=== PATIENT | female | born 1940 | race Caucasian/White ===

== ENCOUNTER → 2018-01-14 15:23 | Outpatient (CLI) | payer MEDICARE, OTHER, SELFPAY ==
--- NOTE | 2018-01-14 12:05 | LES_PTH ---
PATIENT: LEONIDES GILLESPIE LOC: [facility] U#:[id number] AGE/SX: 84/F ROOM: RE01/14/[address]: Dr. Luis Eduardo Preciado MD : [id number] BED: DIS: SPEC #: [id number] RECD: 01/14/18 15:19 STATUS: TOYIN KAREEN #: [id number] ESTIVEN: 01/14/18 12:[address]: Luis Eduardo Preciado DEPT: SURGICAL PATHOLOGY RECD BY: Luz Maria Alfonso ENTERED: 01/15/18 07:01 SP TYPE: Lesion OTHR DR: Dr. Rodger Thornton, [facility] Tissues: Skin of face, NOS Procedures: Surgery Specimen Level IV HEADER OPERATION: Right excision facial lesion PRE-OP DIAGNOSIS: Basal cell carcinoma of skin of other parts of face TISSUE SUBMITTED: Basal cell ? suture on inferior margin MICROSCOPIC DIAGNOSIS Right facial lesion, excision: Extensive solar elastosis. Minimal actinic keratosis. Negative for malignancy. SJ:rg 01/16/18 COMMENT Please make reference to previous specimen ([id number]), left lower lid skin lesion, biopsy with diagnosis of pigmented seborrheic keratosis and epidermal inclusion cyst. Case has been reviewed in consultation with Dr. Madden who concurs with the above diagnosis. IDC:[email or web address] MICROSCOPIC DESCRIPTION Slides are reviewed. GROSS DESCRIPTION Received is one container labeled with the patient's name and not further designated. The specimen consists of a espinoza-white skin ellipse measuring 2.5 x 0.6 cm and up to 0.2 cm in thickness. The specimen is oriented as follows: suture on inferior margin. The specimen is inked as follows: superior margin ? black, inferior margin ? blue, superior margin designated as 12 o?clock, 3 o?clock tip is inked yellow, 9 o?clock tip is inked green, deep margin inked black. The entire specimen is submitted in two cassettes as follows: 1 ? 3 o?clock and 9 o?clock tip, 2 ? rest of the specimen. The tissue in block 2 will be serially sectioned at the time of embedding. / ESTUARDO:dusty 01/15/18 TC:5 CPT: 77411
== END ==
PROVIDERS: Family Provider Student in an Organized Health Care Education/Training Program; PCP Student in an Organized Health Care Education/Training Program; Visit Provider Otolaryngology Otolaryngology/Facial Plastic Surgery
DX: L57.8 Other skin changes due to chronic exposure to nonionizing radiation (principal); L57.0 Actinic keratosis
CPT/HCPCS: 88305

== ENCOUNTER 2018-05-28 05:48 | Inpatient (IN) | payer MEDICARE, OTHER, SELFPAY ==
[2015-06-23 21:24] VITALS: BMI 27.3
--- NOTE | 2018-05-18 16:34 | PCM.HP.BLA ---
History and Physical DATE OF SURGERY: 05/28/2018 SCHEDULED PROCEDURE: Left Total Knee Arthroplasty HISTORY OF PRESENT ILLNESS: This is a 77-year-old female who has been having ongoing bilateral knee pain for several years. Patient underwent previous Euflexxa injection in February 2018. Patient states she was doing well with regards to her right knee. However she has not seen any significant improvement with her left knee. Patient states her pain is intermittent, dull, aching, and sharp. She has pain going up and down stairs, sitting for extended periods of time, and walking. She has difficult time with activities of daily living including housework, shopping, and leisure activities such as gardening. 10/10 and on average is a 5/10 on the left. Patient does complain of intermittent swelling. She states the pain has become worse over the past several weeks. Pain in the left knee is now constant. Patient has tried rest, she, in general injection on the left with no relief in symptoms. Patient has tried ice and elevation with minimal relief. X-rays on the left knee show osla-hi-rdbu arthritis in the medial compartment. Patient has medical history pertinent for hypertension. Patient currently denies any chest pain, shortness of breath, fevers chills, recent infections. Patient does have previous left knee arthroscopy [place] [address] Jg Kulkarni. We obtaining surgical clearance from patient's primary care physician. After failing conservative measures and discussing all treatment options with Dr. Jose Heath, the patient would like to proceed with a left total knee arthroplasty. REVIEW OF SYSTEMS: ROS: Const: Reports anxiety, but denies anorexia, change in appetite, fever, hard of hearing, vision problems and weight change. CV: Denies chest pain, heart murmur, irregular heartbeat and peripheral vascular disease. Resp: Denies asthma, cough, pneumonia, sleep apnea, SOB, tuberculosis and wheezing. GI: Denies constipation, diarrhea, difficulty swallowing, heartburn, nausea, bloody stools and vomiting. : Urinary: denies incontinence. Musculo: Denies leg swelling, limp, trouble walking and weakness. Skin: Denies Raynaud's, history of shingles and tattoo. Neuro: Reports numbness/tingling but denies ambulatory dysfunction, dizziness and tremor. Psych: Reports anxiety and depression, but denies insomnia, mental illness and stress. Elliot/Lymph: Denies anemia, bleeding/bruising tendency and past transfusion. Reviewed and updated. PAST MEDICAL HISTORY: Advance Care Plan: Other Directive, LIVING WILL Effective Date: 08/11/2015 Other Directive, POA Effective Date: 08/11/2015 PMH: Medical Problems: High Blood Pressure Accidents: None Surgical Hx: Gallbladder - (1996) [facility] Tubal Ligation - (1966) [facility] LT Knee Arthroscopy - (11/16/2011) [facility] @ [facility] Appendectomy - (06/2015) Facial SX Anesthesia Complications: None Assistive Devices: Glasses - READING Reviewed, no changes. SOCIAL HISTORY: SH: Marital: .Occupation: Retired.Work Status: Retired.Hand Dominance: Right-handed. Personal Habits: Cigarette Use: Former.Alcohol: Weekly use.Drug Use: Denies Use.Enjoy Exercising: Exercises 1-3 x/month. Reviewed, no changes. VITALS: Ht: 61 Wt: 157lb 8oz Wt k.442 BMI: 29.8 BP: 159/82 Pulse: 56 Resp: 16 T: 96.0 T: 35.6C ALLERGIES: Erythromycin Norvasc Crestor Lisinopril Mobic MEDICATIONS: Aspirin 81 mg 1 po qd, Losartan Potassium 50 mg 1 PO qdaily, Lorazepam 0.5 mg 1 by mouth every day as needed, Escitalopram Oxalate 5 mg/5ml daily, Advil 200 mg 3po qday, Multi Vitamin Daily 1po qday, Vitamin D 2000 Unit 1 by mouth every day PRE-OP EXAM: General appearance:NORMAL Other: Eyes: Conjunctivae and lids: NORMAL Pupils: ERR Ears, Nose, Mouth, and Throat: NORMAL Other: Inspection of lips, teeth and gums: NORMAL Other: Neck: Examination of neck: no masses noted. Respiratory: Assessment of respiratory effort: NORMAL Other: Auscultation of lungs: clear to auscultation no wheezes, rhonchi or rales. Cardiovascular: Auscultation of heart: regular rate and rhythm, no murmurs, gallops or rubs. Exam of carotid arteries: NORMAL Other: Gastrointestinal: Exam of abdomen: soft, nontender, nondistended bowel sounds present. PHYSICAL EXAMINATION: Patient does walk with an antalgic gait. Left knee is cool to touch without erythema. Patient has tenderness to palpation of the medial and lateral joint line of the left knee. Range of motion left knee: Lacks 5 of full extension to 120 of flexion. Stable to varus and valgus stress test. Varus alignment bilaterally. Sensation intact to light touch. Neurovascularly intact. IMAGING STUDIES: X-rays of bilateral knees reveal varus alignment with medial joint space narrowing, subchondral sclerosis, and osteophyte formation consistent with severe medial compartment osteoarthritis bilaterally with evidence of lateral compartment chondrocalcinosis and pseudogout in the left knee. IMPRESSION: 1. Severe left knee osteoarthritis 2. Severe right knee osteoarthritis 3. Hypertension PLAN: Dr. Jose Heath did discuss and review with the patient all treatment options including surgical versus nonsurgical options. Patient does wish to proceed with the above-stated procedure. Potential risks, benefits, and complications of the procedure were discussed in detail including but not limited to , infection, nerve and blood vessel damage, persistent pain, numbness, tingling, paresthesias, blood clot, pulmonary embolism, and requirement for possible further surgery. The patient expressed full understanding and has no further questions for the doctor. Patient does agree to proceed with the above-stated procedure and has signed the surgery consent form. This dictation was created using voice recognition software. Phonetic and/or grammatical errors may exist.. ___ I have re-examined the patient. There are no clinical changes since date of exam. ___ See progress notes for changes. ___ Dictated on admission Date: Time: Signature:
[2018-05-19 14:21] VITALS: BP 126/63; PULSE 59; RESP 16; TEMP 36.6; O2SAT 95; BMI 29.7
[2018-05-19 15:04] LABS: Absolute Lymphocyte Count 1.48 X10^3/ul (0.83-4.51); Absolute Neutrophil Count 3.4 X10^3/uL (2.0-7.7); Basophil# 0.01 X10^3/uL; Basophil% 0.2 % (0-1); Eosinophil# 0.23 X10^3/uL; Eosinophils% 4.3 % (0-5); Hematocrit 43.7 % (37-47); Hemoglobin 14.5 g/dl (12.0-15.0); Lymphocyte # 1.48 X10^3/ul (4.0); Lymphocyte % 27.4 % (19-41); Mean Corp Hgb Conc 33.2 g/gl (32-36); Mean Corpuscular Volume 93.4 fL (81-99); Mean Platelet Vol. 12.3 fl (6.2-12.0); Monocyte# 0.28 X10^3/uL; Monocyte% 5.2 % (0-10); Neutrophil # 3.41 X10^3/uL (2.7-7.7); Neutrophil % 62.9 % (47-70); Platelet Count 164 K/mm3 (150-450); RBC Distribution Width CV 13.4 % (11.6-14.6); RBC Distribution Width SD 45.2 fl (35.1-43.9); Red Blood Count 4.68 M/mm3 (4.2-5.4); White Blood Count 5.4 K/mm3 (4.4-11.0)
[2018-05-19 15:05] LABS: POSITIVE COUNT NO; POSITIVE DIFFERENTIAL NO; POSITIVE MORPHOLOGY NO
[2018-05-19 15:23] LABS: Anion Gap 7 (5-15); BUN 18 mg/dL (7-18); BUN/Creat Ratio 22.5 RATIO (10-20); Calcium,Total 8.5 mg/dL (8.5-10.1); Chloride 105 mmol/L (98-107); EST Glomerular Filtration Rate 74 mL/min (>60); Est Glom Filt Rate - Afr Amer 90 mL/min (>60); Estimated Creatinine Clearance 45.14 ml/min; Glucose 138 mg/dL (74-106); Potassium 3.9 mmol/L (3.5-5.1); Sodium Level 137 mmol/L (136-145)
--- NOTE | 2018-05-23 12:13 | CASEMGMT ---
Attempted to contact patient regarding discharge needs after upcoming surgery. No answer, message left. Elena Pitt LPN Clinical Support
--- NOTE | 2018-05-23 13:19 | CASEMGMT ---
Spoke with patient regarding discharge needs after upcoming surgery. Patient plans to return home with assistance from . Patient has outpatient physical therapy set up at [facility], can assist with transportation. Patient has a walker, toilet riser, and shower seat. Bed room and bathroom are on the 1st level of the home. There are 2 steps into the home from the garage. Informed patient that RN-CM will likely follow up after surgery. Elena Pitt LPN Clinical Support
[2018-05-28] VITALS (17 sets, daily range): BP systolic 112–167; BP diastolic 56–80; PULSE 51–83; RESP 14–16; TEMP 35.7–37.2; O2SAT 91–98; BMI 29.7; BMI 31.6
[2018-05-28] MEDS: Acetaminophen 500 MG Tablet 1000 MG PO ×3 (06:30→22:16)
[2018-05-28] MEDS: Celecoxib 200 MG Capsule 400 MG PO (06:30)
[2018-05-28] MEDS: Cefazolin 2 GM in 0.9% Normal Saline 100 ML IV (07:54)
--- NOTE | 2018-05-28 09:08 | RAD_ITS ---
STUDY: X-RAY - LEFT KNEE REASON FOR EXAM: Female, 77 years old. Postop TECHNIQUE: 2 view(s) of the knee. COMPARISON: None. FINDINGS: Normal visualized distal femur. Normal visualized proximal tibia and fibula. Normal proximal tibiofibular articulation. There is a total knee arthroplasty in anatomic alignment. Normal medial femorotibial compartment. Normal lateral femorotibial compartment. Normal patellofemoral articulation. There is an effusion and gas in the joint. There is subcutaneous emphysema and skin daria anteriorly. There is a posterior splint obscuring detail. RAD/Knee 1 or 2 Views IMPRESSION: Status post total knee arthroplasty Electronically Signed: Oscar Guzman MD at 16:53 EST , Service support ,
[2018-05-28] MEDS: Lactated Ringers 1,000 ML 999 ML IV (09:10)
--- NOTE | 2018-05-28 09:10 | PCM.OPRPT ---
Report of Operation Date of Procedure: 05/28/18 Pre-Operative Diagnosis: Left knee primary osteoarthritis Post-Operative Diagnosis: Left knee primary osteoarthritis Surgery/Procedure Performed:: Left total knee replacement Description of Surgical Findings:: Stable knee with good patella tracking senior process analyst: Janna Sparrow Type of Anesthesia:: Spinal Anesthesiologist: David Patiño Special Medications: 2 g Ancef, 1 g TXA at incision, 1 g TXA closure, 10 mg Decadron, joint cocktail (5 mg Duramorph, 30 mL of 0.5% Ropivicaine, 1000 units of epinephrine, 30 mg of Toradol) Specimen's removed: Bony cuts Estimated Blood Loss (mL): 50 Fluids Replaced: 1200 ML crystalloid Description of Procedure: Implants used: 1. Abeba size 3 press-fit triathlon cruciate retaining distal femoral component 2. Rac[place] size 4 press-fit tibial baseplate 3. Abeba X3 9 mm CS polyethylene 4. [place] X3 29 mm asymmetric patella Brief history operative indications: 77-year-old f with history of left knee osteoarthritis with radiographic findings with loss of joint space, osteophyte formation and subchondral sclerosis. Failed conservative measures as mentioned in the H&P. Discussion of total knee arthroplasty as well as risk and benefits were discussed the patient including but not limited to blood loss, DVTs, PEs, neurovascular damage, general risk of anesthesia including loss of life, and stiffness or instability were discussed with patient. Patient demonstrated understanding and was able to sign informed consent. Procedure: On the date of procedure patient's left lower extremity was marked in the preoperative area. The patient was then taken back to the operating room where the patient was placed on the table in the supine position. All bony prominences were identified a well-padded. Anesthesia assumed control of the C-spine and airway and remained controlled throughout the remainder of the procedure. A tourniquet was placed on the left upper thigh and the leg was prepped in a sterile fashion. The surgeon then scrubbed at this time .Upon reentering the room left lower extremity was draped in a standard orthopedic fashion. A timeout was then called and everyone agreed upon the side, the site, the procedure to be performed, patient's identity and antibiotics given. Esmarch bandage was used to exsanguinate the extremity and the tourniquet was placed up to 250 mmHg with the knee in flexion. A midline skin incision was made and sharp dissection was taken down through skin subcutaneous tissue and fat. The standard medial parapatellar incision was made and the patella was subluxed laterally. The standard deep MCL release was done and the fat pad was resected. Next our attention was directed to the femur. Navigation pins were placed, navigation was registered. The distal femoral cutting block was pinned into place and 9 mm of distal femur resection was completed. The distal femoral cut was verified with navigation. The knee was then placed in deep flexion in the standard [employer] S.A sizing guide was used to place the femoral component in 3? external rotation based on the posterior condyles. A size 3 4-in-1 cutting block was selected and pinned into place. The anterior cut was then made and checked for notching. The subsequent anterior chamfer cuts, posterior condylar cuts and posterior chamfer cuts were made while ensuring the MCL and LCL were protected. Our attention was then turned to the tibia where the navigation pins were placed, navigation was registered. [email or web address] tibial cutting guide was used to make the appropriate tibial cut 90 degrees from the mechanical axis. Navigation was then used to verify the cut. A size 4 tibial base plate was selected. the knee was flexed to 90 degrees and the soft tissues and posterior osteophytes were removed from the joint. 40 cc of the periarticular injection was injected into the posterior medial corner of the joint. The appropriate trials were then placed on the femur and tibia. A trial polyethylene was trialed to ensure proper balancing and stability of the knee. Patella tracking, was then verified and corrected appropriately as needed. The appropriate tibial internal rotation was then marked with a bovie. Our attention was then directed to the patella. The patella was everted and a flat resection was made. The lug holes were drilled and the patella trial was placed. Patellar tracking was checked and deemed appropriate. Once we were happy lug holes were drilled for the femur and trial components were removed. Cement was mixed at this time and the tourniquet was let down the tibia was subluxed and pinned into place and the keel was punched and the canal was reamed. Final components were verified and opened, and cement was mixed in a vacuum. Racine Simplex cement was used. The wound was copiously irrigated with normal saline. When the cement was ready the press-fit components were impacted into place starting with the tibia, femur and finally the patella cemented into place. The trial poly component was placed and the knee was placed in full extension. All excess cement was removed in the process. Once the cement had cured the tracking, alignment and balance were verified and a size 9 mm polyethylene component was placed. Once the final components were placed the wound was copiously irrigated with normal saline solution and the periarticular injection was given. The wound was closed in a layer nur fashion using #1 vicryl interrupted sutures for the arthrotomy, 2-0 interrupted Vicryl suture for the subcuticular layer and daria for final skin closure. A sterile compressive dressing was then placed. The patient was then awakened from anesthesia, transferred to the rsalineno and transferred to the PACU for recovery. Post op plan DVT ppx: ASA 81mg, thigh high compression stockings Follow up: in office in 2 weeks for wound check PT: to start POD #0 at hospital, outpatient PT should be arranged. Grafts/Implants Used: Abeba cruciate retaining press-fit triathlon - Complications None - Admit VTE Documentation VTE Present on Admission: No VTE Mechan Device Prophylaxis: SCD's, Thigh High LAURA Hose VTE Pharm Prophylaxis ordered?: Yes
[2018-05-28] MEDS: Scopolamine 1mg/72hr Patch 1 PATCH TD (10:12)
--- NOTE | 2018-05-28 13:17 | PCM.PN.HOSP ---
Subjective: Patient is a 77-year-old lady who underwent Left knee arthroplasty by Dr. Heath on 05/28/2018. Hospitalist service was consulted to assist with management of patient medical comorbidities Objective: GENERAL: cooperative HEENT: Atraumatic; moist oral mucosa EYES; Anicteric, Normal Conjunctiva NECK; supple, normal thyroid, no distended JVD. RESPIRATORY: Diminished to auscultation bilaterally, CARDIOVASCULAR: Regular S1 S2, no audible murmurs GI: soft, non-tender, normoactive bowel sounds, : No Renal angle tenderness; EXTREMITIES: No edema, no clubbing, no cyanosis. MUSCULOSKELETAL:Left knee in surgical dressing NEURO: Awake; no lateralizing signs. SKIN: No Rash PSYCH; Normal affect Vitals/I&O's: Vital Signs Temp Pulse Resp BP Pulse Ox 97.9 F 61 16 143/72 H 94 05/28/18 12:57 05/28/18 12:57 05/28/18 12:57 05/28/18 12:57 05/28/18 12:57 Oxygen Flow Rate (L/min) 1 Oxygen Delivery Method Nasal Cannula Weight: 76.1 kg Body Mass Index (BMI) 31.6 Intake and Output for Last 24 Hours 05/26/18 05/27/18 05/28/18 23:59 23:59 23:59 Intake Total 2300 / 2300 Balance 2300 / 2300 Current Medications Acetaminophen (Tylenol) 1,000 mg PO Q8 [facility] Aspirin (Aspirin, Baby) 81 mg PO BIDCM [place] Celecoxib (Celebrex) 200 mg PO BID [facility] Cholecalciferol (Vitamin D) 1,000 unit PO DAILY [facility] Escitalopram Oxalate (Lexapro) 30 mg PO BID [place] Famotidine (Pepcid) 20 mg PO DAILY [facility] Cefazolin Sodium () 1 gm in 50 mls @ 150 mls/hr IV Q8H [place] Stop: 05/29/18 00:19 Lactated Ringer's () 1,000 mls @ 125 mls/hr IV .Q8H [facility] Ketorolac Tromethamine (Toradol) 15 mg IV Q6H PRN PRN PRN Reason: MILD-MOD PAIN (1-5/10) Lactobacillus Acidophilus (Acidophilus) 1 tablet PO DAILY [facility] Losartan Potassium (Cozaar) 50 mg PO BID [facility] Metoprolol Tartrate (Lopressor (Beta Monica)) 75 mg PO BID [facility] Morphine Sulfate () 2 - 4 mg IV Q2H PRN PRN PRN Reason: SEVERE PAIN (6-04/16) Multivitamins/Minerals (Multivitamin With Minerals) 1 tablet PO DAILY@0800 [facility] Nutritional Formula (Lactose Free) (Ensure Clear) 120 ml PO TIDCM [facility] Ondansetron HCl (Zofran) 4 mg IV Q8H PRN PRN PRN Reason: NAUSEA Oxycodone HCl (Oxyir) 5 - 10 mg PO Q4H PRN PRN PRN Reason: MOD-SEVERE PAIN (-04/16) Promethazine HCl (Phenergan) 12.5 mg IM Q6H PRN PRN; Protocol PRN Reason: NAUSEA/VOMITING Senna/Docusate Sodium (Senokot-S, Iesha-Colace) 2 tablet PO BID [facility] Sodium Chloride () 5 - 30 ml IV UD PRN PRN Reason: SALINE FLUSH Verapamil HCl (Calan Sr) 120 mg PO QHS [facility] Medical Necessity - Tobacco Use Smoking Status: Former smoker Tobacco Use: Non-smoker Assessment/Plan Patient is a 77-year-old lady who underwent left total knee arthroplasty by Dr. Heath on 05/28/2018. Hospitalist service was consulted to assist with management of patient medical comorbidities 1. Status post Left total nee arthroplasty on 05/28/[address] Heath. Patient postoperative orders regarding PT OT, as well as pain management addressed by primary service 2. Hypertension-blood pressure controlled, home medications continued with dose adjustment as needed 3. Generalized osteoarthritis 4. Obesity with BMI of 31.7 5. Depression with anxiety 6. DVT prophylaxis ordered by orthopedic service Active Medications Acetaminophen (Tylenol) 1,000 mg PO Q8 [facility]irin [facility]in, Baby) [facility] Celecoxib (Celebrex) 200 mg PO BID [facility] Cholecalciferol (Vitamin D) 1,000 unit PO DAILY [facility] Escitalopram Oxalate (Lexapro) 30 mg PO BID [facility] Famotidine (Pepcid) 20 mg PO DAILY [facility] Cefazolin Sodium () 1 gm in 50 mls @ 150 mls/hr IV Q8H [facility] Stop: 05/29/18 00:19 Lactated Ringer's () 1,000 mls @ 125 mls/hr IV .Q8H [facility] Ketorolac Tromethamine (Toradol) 15 mg IV Q6H PRN PRN PRN Reason: MILD-MOD PAIN (1-510) Lactobacillus Acidophilus (Acidophilus) 1 tablet PO DAILY [facility] Losartan Potassium (Cozaar) 50 mg PO BID [facility] Metoprolol Tartrate (Lopressor (Beta Monica)) 75 mg PO BID [facility] Morphine Sulfate () 2 - 4 mg IV Q2H PRN PRN PRN Reason: SEVERE PAIN (6-10/10) Multivitamins/Minerals (Multivitamin With Minerals) 1 tablet PO DAILY@0800 [facility] Nutritional Formula (Lactose Free) (Ensure Clear) 120 ml PO TIDCM [facility] Ondansetron HCl (Zofran) 4 mg IV Q8H PRN PRN PRN Reason: NAUSEA Oxycodone HCl (Oxyir) 5 - 10 mg PO Q4H PRN PRN PRN Reason: MOD-SEVERE PAIN (4-1010) Promethazine HCl (Phenergan) 12.5 mg IM Q6H PRN PRN; Protocol PRN Reason: NAUSEA/VOMITING Senna/Docusate Sodium (Senokot-S, Iesha-Colace) 2 tablet PO BID [facility] Sodium Chloride () 5 - 30 ml IV UD PRN PRN Reason: SALINE FLUSH Verapamil HCl (Calan Sr) 120 mg PO QHS [facility] Code Visit Inpatient E&M: [address] [facility]
[2018-05-28] MEDS: Cefazolin 1 GM/50 ML BAG IV (15:26)
[2018-05-28] MEDS: Lactated Ringers 1,000 ML 125 ML IV ×2 (16:51→22:18)
[2018-05-28] MEDS: Aspirin 81 MG TAB.CHEW PO (16:52)
[2018-05-28] MEDS: Losartan Potassium 50 MG Tablet PO (20:07)
[2018-05-28] MEDS: Metoprolol Tartrate 50 MG Tablet 75 MG PO (20:08)
[2018-05-28] MEDS: Senna/Docusate Sodium 1 Tablet 2 TABLET PO (20:08)
[2018-05-28] MEDS: Verapamil SR 240 MG Tablet 120 MG PO (20:09)
[2018-05-28] MEDS: Celecoxib 200 MG Capsule PO (20:10)
[2018-05-29] MEDS: Cefazolin 1 GM/50 ML BAG IV (00:20)
[2018-05-29] MEDS: LORazepam 0.5 MG Tablet PO (01:22)
[2018-05-29 01:25] VITALS: BP 152/53; PULSE 62; RESP 16; TEMP 36.7; O2SAT 97
[2018-05-29] MEDS: 0.9% NaCl Peripheral Flush Adult/Peds IV (04:25)
[2018-05-29] MEDS: Acetaminophen 500 MG Tablet 1000 MG PO (06:31)
[2018-05-29 06:33] VITALS: BP 185/84; PULSE 64; RESP 18; TEMP 36.6; O2SAT 97
[2018-05-29 06:37] LABS: Hematocrit 33.8 % (37-47); Hemoglobin 11.2 g/dl (12.0-15.0); Mean Corp Hgb Conc 33.1 g/gl (32-36); Mean Corpuscular Hgb 30.9 pg (27.0-32.0); Mean Corpuscular Volume 93.1 fL (81-99); Mean Platelet Vol. 11.2 fl (6.2-12.0); Platelet Count 145 K/mm3 (150-450); RBC Distribution Width CV 13.1 % (11.6-14.6); Red Blood Count 3.63 M/mm3 (4.2-5.4); Scan Indicated on CBC? Y/N NO; White Blood Count 12.4 K/mm3 (4.4-11.0)
[2018-05-29 06:38] VITALS: PULSE 64
[2018-05-29] MEDS: Metoprolol Tartrate 50 MG Tablet 75 MG PO (06:38)
[2018-05-29] MEDS: Losartan Potassium 50 MG Tablet PO (06:39)
[2018-05-29 06:48] LABS: Anion Gap 9 (5-15); BUN 16 mg/dL (7-18); BUN/Creat Ratio 19.4 RATIO (10-20); Calcium,Total 8.8 mg/dL (8.5-10.1); Chloride 106 mmol/L (98-107); Creatinine, Serum 0.82 mg/dL (0.55-1.02); EST Glomerular Filtration Rate 72 mL/min (>60); Est Glom Filt Rate - Afr Amer 87 mL/min (>60); Estimated Creatinine Clearance 44.04 ml/min; Glucose 119 mg/dL (74-106); Potassium 4.5 mmol/L (3.5-5.1); Sodium Level 140 mmol/L (136-145)
--- NOTE | 2018-05-29 07:45 | PN.ORTHO_ITS ---
Subjective: Patient is doing well today. She has no significant complaints. She has well- controlled knee pain. Patient does note that there was drainage last night nurse also states she had to change the dressing multiple times. Eventually they started using a compressive dressing and she has had less drainage since that time. She would like to go home today but her concern is that if she continues to have drainage of the wound she may not be able to manage it at home. She has had no chest pain or shortness of breath. She is done well with therapy. Objective: Left knee radiographs show well-placed postoperative total knee replacement - Physical Exam General: Alert, Oriented x3, Cooperative Extremities: - - Left lower extremity: Incision clean dry and intact this morning when dressing was removed. Proximally can see where there was some saturation of the dressing no active drainage this morning there is some surrounding ecchymosis. Motor is intact dorsiflexion, EHL and plantar flexion. Sensation is intact to light touch saphenous, jen,l superficial peroneal, deep peroneal and tibial distributions. Calves are soft and supple. Vital Signs Temp Pulse Resp BP Pulse Ox 97.8 F 64 18 185/84 H 97 05/29/18 06:33 05/29/18 06:38 05/29/18 06:33 05/29/18 06:33 05/29/18 06:33 Oxygen Flow Rate (L/min) 1 Oxygen Delivery Method Room Air Weight: 167 lb 12.348 oz Body Mass Index (BMI) 31.6 Intake and Output for Last 24 Hours 05/27/18 05/28/18 05/29/18 23:59 23:59 23:59 Intake Total 2300 / 2300 3743 / 3743 Balance 2300 / 2300 3743 / 3743 Laboratory Tests Past 24 Hrs 05/29/18 05/29/18 06:09 06:09 WBC 12.4 H RBC 3.63 L Hgb 11.2 L Hct 33.8 L MCV 93.1 MCH 30.9 MCHC 33.1 RDW 13.1 RDW Differential 44.0 H Plt Count 145 L MPV 11.2 Sodium 140 Potassium 4.5 Chloride 106 Carbon Dioxide 25.0 Anion Gap 9 BUN 16 Creatinine 0.82 Estim Creat Clear Calc 44.04 Est GFR (MDRD) Af Amer 87 Est GFR (MDRD) Non-Af 72 BUN/Creatinine Ratio 19.4 Glucose 119 H Calcium 8.8 Medical Necessity - Tobacco Use Smoking Status: Former smoker Tobacco Use: Non-smoker Assessment/Plan Postop day 1 left total knee replacement 1. DVT prophylaxis: Aspirin twice daily 81 mg 2. Pain control: Patient's pain is controlled on current regimen will discharge on current regimen 3. Physical therapy: Weightbearing as tolerated activity as tolerated, range of motion as tolerated. 4. Encourage incentive spirometry 5. Dressing: We will use a compressive dressing throughout the day today. Plan to change to occlusive dressing prior to discharge. Currently incision is clean and dry. 6. Disposition: Plan is to discharge patient home today. However there are concerns of being able to take care of her dressing at home. She is going to go through physical therapy today and if the incision remains dry and healthy she would like to go home this evening. If she continues to have drainage she will remain another day as we continue compressive dressings. Patient was educated on compressive dressings and wound care at home in the event that everything goes well the day but she has continued drainage at that time. [facility] Office:
[2018-05-29 07:46] VITALS: BP 159/69; PULSE 60; RESP 18; TEMP 36.6; O2SAT 95
--- NOTE | 2018-05-29 07:48 | PCM.PN.HOSP ---
Subjective: Postoperative day 1. Patient complains of not being able to sleep. She did develop some bleeding from her incision site Objective: GENERAL: cooperative HEENT: Atraumatic; moist oral mucosa EYES; Anicteric, Normal Conjunctiva NECK; supple, normal thyroid, no distended JVD. RESPIRATORY: Diminished to auscultation bilaterally, CARDIOVASCULAR: Regular S1 S2, no audible murmurs GI: soft, non-tender, normoactive bowel sounds, : No Renal angle tenderness; EXTREMITIES: No edema, no clubbing, no cyanosis. MUSCULOSKELETAL:Left knee in surgical dressing NEURO: Awake; no lateralizing signs. SKIN: No Rash PSYCH; Normal affect Vitals/I&O's: Vital Signs Temp Pulse Resp BP Pulse Ox 97.8 F 60 18 159/69 H 95 05/29/18 07:46 05/29/18 07:46 05/29/18 07:46 05/29/18 07:46 05/29/18 07:46 Oxygen Flow Rate (L/min) 1 Oxygen Delivery Method Room Air Weight: 76.1 kg Body Mass Index (BMI) 31.6 Intake and Output for Last 24 Hours 05/27/18 05/28/18 05/29/18 23:59 23:59 23:59 Intake Total 2300 / 2300 3743 / 3743 Balance 2300 / 2300 3743 / 3743 Laboratory Results 05/29/18 06:09: WBC 12.4 H, RBC 3.63 L, Hgb 11.2 L, Hct 33.8 L, MCV 93.1, MCH 30.9, MCHC 33.1, RDW 13.1, RDW Differential 44.0 H, Plt Count 145 L, MPV 11.2 05/29/18 06:09: Sodium 140, Potassium 4.5, Chloride 106, Carbon Dioxide 25.0, Anion Gap 9, BUN 16, Creatinine 0.82, Estim Creat Clear Calc 44.04, Est GFR (MDRD) Af Amer 87, Est GFR (MDRD) Non-Af 72, BUN/Creatinine Ratio 19.4, Glucose 119 H, Calcium 8.8 Current Medications Acetaminophen (Tylenol) 1,000 mg PO Q8 [facility] Last Admin: 05/29/18 06:31 Dose: 1,000 mg Aspirin (Aspirin, Baby) 81 mg PO BIDCM [facility] Last Admin: 05/28/18 16:52 Dose: 81 mg Celecoxib (Celebrex) 200 mg PO BID [facility] Last Admin: 05/28/18 20:10 Dose: 200 mg Cholecalciferol (Vitamin D) 1,000 unit PO DAILY [facility] Escitalopram Oxalate (Lexapro) 20 mg PO DAILY [facility] Escitalopram Oxalate (Lexapro) 10 mg PO DAILY [facility] Famotidine (Pepcid) 20 mg PO DAILY [facility] Ketorolac Tromethamine (Toradol) 15 mg IV Q6H PRN PRN PRN Reason: MILD-MOD PAIN (1-5/10) Lactobacillus Acidophilus (Acidophilus) 1 tablet PO DAILY [facility] Lorazepam (Ativan) 0.5 mg PO QHS PRN PRN PRN Reason: INSOMNIA Last Admin: 05/29/18 01:22 Dose: 0.5 mg Losartan Potassium (Cozaar) 50 mg PO BID [facility] Last Admin: 05/29/18 06:39 Dose: 50 mg Metoprolol Tartrate (Lopressor (Beta Monica)) 75 mg PO BID [facility] Last Admin: 05/29/18 06:38 Dose: 75 mg Morphine Sulfate () 2 - 4 mg IV Q2H PRN PRN PRN Reason: SEVERE PAIN (6-10/10) Multivitamins/Minerals (Multivitamin With Minerals) 1 tablet PO DAILY@0800 [facility] Nutritional Formula (Lactose Free) (Ensure Enlive) 120 ml PO 4X/DAY [facility] Last Admin: 05/28/18 20:15 Dose: Not Given Ondansetron HCl (Zofran) 4 mg IV Q8H PRN PRN PRN Reason: NAUSEA Oxycodone HCl (Oxyir) 5 - 10 mg PO Q4H PRN PRN PRN Reason: MOD-SEVERE PAIN (4-10/10) Promethazine HCl (Phenergan) 12.5 mg IM Q6H PRN PRN; Protocol PRN Reason: NAUSEA/VOMITING Senna/Docusate Sodium (Senokot-S, Iesha-Colace) 2 tablet PO BID [facility] Last Admin: 05/28/18 20:08 Dose: 2 tablet Sodium Chloride () 5 - 30 ml IV UD PRN PRN Reason: SALINE FLUSH Last Admin: 05/29/18 04:25 Dose: 10 ml Verapamil HCl (Calan Sr) 120 mg PO QHS [facility] Last Admin: 05/28/18 20:09 Dose: 120 mg Medical Necessity - Tobacco Use Smoking Status: Former smoker Tobacco Use: Non-smoker Assessment/Plan Patient is a 77-year-old lady who underwent left total knee arthroplasty by Dr. Heath on 05/28/2018. Hospitalist service was consulted to assist with management of patient medical comorbidities 1. Status post Left total nee arthroplasty on 05/28/[address] Heath. Patient postoperative orders regarding PT OT, as well as pain management addressed by primary service 2. Hypertension-blood pressure controlled, home medications continued with dose adjustment as needed 3. Generalized osteoarthritis 4. Obesity with BMI of 31.7 5. Depression with anxiety 6. DVT prophylaxis ordered by orthopedic service Active Medications Acetaminophen (Tylenol) 1,000 mg PO Q8 [facility] Aspirin (Aspirin, Baby) 81 mg PO BID [facility] Celecoxib (Celebrex) 200 mg PO BID [facility] Cholecalciferol (Vitamin D) 1,000 unit PO DAILY [facility] Escitalopram Oxalate (Lexapro) 30 mg PO BID [facility] Famotidine (Pepcid) 20 mg PO DAILY [facility] Cefazolin Sodium () 1 gm in 50 mls @ 150 mls/hr IV Q8H [facility] Stop: 05/29/18 00:19 Lactated Ringer's () 1,000 mls @ 125 mls/hr IV .Q8H [facility] Ketorolac Tromethamine (Toradol) 15 mg IV Q6H PRN PRN PRN Reason: MILD-MOD PAIN (1-5/10) Lactobacillus Acidophilus (Acidophilus) 1 tablet PO DAILY [facility] Losartan Potassium (Cozaar) 50 mg PO BID [facility] Metoprolol Tartrate (Lopressor (Beta Monica)) 75 mg PO BID [facility] Morphine Sulfate () 2 - 4 mg IV Q2H PRN PRN PRN Reason: SEVERE PAIN (6-10/10) Multivitamins/Minerals (Multivitamin With Minerals) 1 tablet PO DAILY@0800 [facility] Nutritional Formula (Lactose Free) (Ensure Clear) 120 ml PO TIDCM [facility] Ondansetron HCl (Zofran) 4 mg IV Q8H PRN PRN PRN Reason: NAUSEA Oxycodone HCl (Oxyir) 5 - 10 mg PO Q4H PRN PRN PRN Reason: MOD-SEVERE PAIN (4-10/10) Promethazine HCl (Phenergan) 12.5 mg IM Q6H PRN PRN; Protocol PRN Reason: NAUSEA/VOMITING Senna/Docusate Sodium (Senokot-S, Iesha-Colace) 2 tablet PO BID [facility] Sodium Chloride () 5 - 30 ml IV UD PRN PRN Reason: SALINE FLUSH Verapamil HCl (Calan Sr) 120 mg PO QHS [facility] Code Visit Inpatient E&M: 69836 Subs Hosp L2
--- NOTE | 2018-05-29 07:50 | DCINST_ITS ---
Discharge Diet: No Restrictions Discharge Activity: May Not Drive May shower in (days): 2 Ice area for (Minutes): 20 - every hour while awake. Weight Bearing Status: Weight bearing as tolerated Elevate: Operative Extremity Additional Activity Instructions:: Wear elastic stockings for 2 weeks after your surgery. Call your doctor if your incision/area has: Continuous Slow Oozing, Sudden Increased Bleeding, Increased Pain/ Swelling, Increased Redness, Foul Smelling Discharge Call your doctor if you observe: Fever of 101 or Higher, Coldness, Increased Pain, Numbness or Tingling, Change in Color, Calf discomfort, Uncontrolled pain Remove Dressing in (days):: 06-03-2018 Additional Dressing/Incision Instructions:: If incision is clean dry and intact may leave the wound open to air and continue showering. If there is continued drainage continue daily dry dressing changes and keep incision clean dry and intact until there is no drainage. Allergies/Adverse Reactions: Allergies atorvastatin calcium [From Lipitor] Allergy (Verified 05/19/18 14:08) Pain in joints erythromycin base [Erythromycin Base] Allergy (Verified 05/19/18 14:01) Upset Stomach rosuvastatin calcium [From Crestor] Allergy (Verified 05/19/18 14:01) Pain in joints amlodipine [From Norvasc] Adverse Reaction (Verified 05/19/18 14:01) Unknown lisinopril Adverse Reaction (Verified 05/19/18 14:01) Other COUGH meloxicam [From Mobic] Adverse Reaction (Verified 05/19/18 14:01) cough Medications to take at Discharge Cholecalciferol (Vitamin D3) [D3-2000] 1,000 unit PO DAILY 03/11/14 Losartan Potassium [Cozaar] 50 mg PO BID 03/11/14 Multivit-Min/FA/Lycopene/Lut [Centrum Silver Tablet] 1 each PO DAILY 03/11/14 Escitalopram Oxalate [Lexapro] 30 mg PO DAILY 05/19/18 L.acidoph,Paracasei, B.lactis [Probiotic] 1 each PO DAILY 05/19/18 Metoprolol Tartrate [Lopressor (beta torie)] 75 mg PO BID 05/19/18 [place]-3 Fatty Acids/Fish Oil [[place] 3 1,000 mg Softgel] 1 each PO QHS 05/19/18 Verapamil HCl [Verapamil ER] 120 mg PO QHS 05/28/18 Acetaminophen [Tylenol] 1,000 mg PO Q8 #90 tab 05/29/18 Aspirin [Aspirin, Baby] 81 mg PO BIDCM #60 tab.chew 05/29/18 Celecoxib [Celebrex] 200 mg PO BID #30 cap 05/29/18 Ensure Enlive 120 ml PO 4X/DAY liquid 05/29/18 Famotidine [Pepcid] 20 mg PO DAILY #30 tab 05/29/18 Oxycodone [Oxyir] 5 - 10 mg PO Q4H PRN PRN 7 Days #60 tab 05/29/18 Senna/Docusate Sodium [Senokot-S] 2 tab PO BID #30 tab 05/29/18 The following prescriptions were given: Oxycodone [Oxyir] 5 - 10 mg PO Q4H PRN PRN 7 Days #60 tab PRN Reason: Mod-Severe Pain (4-10) Acetaminophen [Tylenol] 1,000 mg PO Q8 #90 tab Famotidine [Pepcid] 20 mg PO DAILY #30 tab Aspirin [Aspirin, Baby] 81 mg PO BIDCM #60 tab.chew Celecoxib [Celebrex] 200 mg PO BID #30 cap Senna/Docusate Sodium [Senokot-S] 2 tab PO BID #30 tab Primary Care Physician: Rodger Thornton DO [Primary Care Provider] - Test Results: Test results from this visit will be discussed in further detail at your follow- up appointment, if applicable. Please Follow Up With: Wesley Jensen PA-C - 06-11-2018
--- NOTE | 2018-05-29 07:51 | PN_ITS ---
Subjective: Postoperative day 1. Patient complains of not being able to sleep. She did develop some bleeding from her incision site Objective: GENERAL: cooperative HEENT: Atraumatic; moist oral mucosa EYES; Anicteric, Normal Conjunctiva NECK; supple, normal thyroid, no distended JVD. RESPIRATORY: Diminished to auscultation bilaterally, CARDIOVASCULAR: Regular S1 S2, no audible murmurs GI: soft, non-tender, normoactive bowel sounds, : No Renal angle tenderness; EXTREMITIES: No edema, no clubbing, no cyanosis. MUSCULOSKELETAL:Left knee in surgical dressing NEURO: Awake; no lateralizing signs. SKIN: No Rash PSYCH; Normal affect Vitals/I&O's: Vital Signs Temp Pulse Resp BP Pulse Ox 97.8 F 60 18 159/69 H 95 05/29/18 07:46 05/29/18 07:46 05/29/18 07:46 05/29/18 07:46 05/29/18 07:46 Oxygen Flow Rate (L/min) 1 Oxygen Delivery Method Room Air Weight: 76.1 kg Body Mass Index (BMI) 31.6 Intake and Output for Last 24 Hours 05/27/18 05/28/18 05/29/18 23:59 23:59 23:59 Intake Total 2300 / 2300 3743 / 3743 Balance 2300 / 2300 3743 / 3743 Laboratory Results 05/29/18 06:09: WBC 12.4 H, RBC 3.63 L, Hgb 11.2 L, Hct 33.8 L, MCV 93.1, MCH 3 0.9, MCHC 33.1, RDW 13.1, RDW Differential 44.0 H, Plt Count 145 L, MPV 11.2 05/29/18 06:09: Sodium 140, Potassium 4.5, Chloride 106, Carbon Dioxide 25.0, Anion Gap 9, BUN 16, Creatinine 0.82, Estim Creat Clear Calc 44.04, Est GFR (MDRD) Af Amer 87, Est GFR (MDRD) Non-Af 72, BUN/Creatinine Ratio 19.4, Glucose 119 H, Calcium 8.8 Current Medications Acetaminophen (Tylenol) 1,000 mg PO Q8 [facility] Last Admin: 05/29/18 06:31 Dose: 1,000 mg Aspirin (Aspirin, Baby) 81 mg PO BIDCM [facility] Last Admin: 05/28/18 16:52 Dose: 81 mg Celecoxib (Celebrex) 200 mg PO BID [facility] Last Admin: 05/28/18 20:10 Dose: 200 mg Cholecalciferol (Vitamin D) 1,000 unit PO DAILY [facility] Escitalopram Oxalate (Lexapro) 20 mg PO DAILY [facility] Escitalopram Oxalate (Lexapro) 10 mg PO DAILY [facility] Famotidine (Pepcid) 20 mg PO DAILY [facility] Ketorolac Tromethamine (Toradol) 15 mg IV Q6H PRN PRN PRN Reason: MILD-MOD PAIN (1-5/10) Lactobacillus Acidophilus (Acidophilus) 1 tablet PO DAILY [facility] Lorazepam (Ativan) 0.5 mg PO QHS PRN PRN PRN Reason: INSOMNIA Last Admin: 05/29/18 01:22 Dose: 0.5 mg Losartan Potassium (Cozaar) 50 mg PO BID [facility] Last Admin: 05/29/18 06:39 Dose: 50 mg Metoprolol Tartrate (Lopressor (Beta Monica)) 75 mg PO BID [facility] Last Admin: 05/29/18 06:38 Dose: 75 mg Morphine Sulfate () 2 - 4 mg IV Q2H PRN PRN PRN Reason: SEVERE PAIN (6-10/10) Multivitamins/Minerals (Multivitamin With Minerals) 1 tablet PO DAILY@0800 [facility] Nutritional Formula (Lactose Free) (Ensure Enlive) 120 ml PO 4X/DAY [facility] Last Admin: 05/28/18 20:15 Dose: Not Given Ondansetron HCl (Zofran) 4 mg IV Q8H PRN PRN PRN Reason: NAUSEA Oxycodone HCl (Oxyir) 5 - 10 mg PO Q4H PRN PRN PRN Reason: MOD-SEVERE PAIN (4-10/10) Promethazine HCl (Phenergan) 12.5 mg IM Q6H PRN PRN; Protocol PRN Reason: NAUSEA/VOMITING Senna/Docusate Sodium (Senokot-S, Iesha-Colace) 2 tablet PO BID [facility] Last Admin: 05/28/18 20:08 Dose: 2 tablet Sodium Chloride () 5 - 30 ml IV UD PRN PRN Reason: SALINE FLUSH Last Admin: 05/29/18 04:25 Dose: 10 ml Verapamil HCl (Calan Sr) 120 mg PO QHS [facility] Last Admin: 05/28/18 20:09 Dose: 120 mg Medical Necessity - Tobacco Use Smoking Status: Former smoker Tobacco Use: Non-smoker Assessment/Plan Patient is a 77-year-old lady who underwent left total knee arthroplasty by Dr. Heath on 05/28/2018. Hospitalist service was consulted to assist with management of patient medical comorbidities 1. Status post Left total nee arthroplasty on 05/28/[address] Heath. Patient postoperative orders regarding PT OT, as well as pain management addressed by primary service 2. Hypertension-blood pressure controlled, home medications continued with dose adjustment as needed 3. Generalized osteoarthritis 4. Obesity with BMI of 31.7 5. Depression with anxiety 6. DVT prophylaxis ordered by orthopedic service Active Medications Acetaminophen (Tylenol) 1,000 mg PO Q8 [facility] Aspirin (Aspirin, Baby) 81 mg PO BID [facility] Celecoxib (Celebrex) 200 mg PO BID [facility] Cholecalciferol (Vitamin D) 1,000 unit PO DAILY [facility] Escitalopram Oxalate (Lexapro) 30 mg PO BID [facility] Famotidine (Pepcid) 20 mg PO DAILY [facility] Cefazolin Sodium () 1 gm in 50 mls @ 150 mls/hr IV Q8H [facility] Stop: 05/29/18 00:19 Lactated Ringer's () 1,000 mls @ 125 mls/hr IV .Q8H [facility] Ketorolac Tromethamine (Toradol) 15 mg IV Q6H PRN PRN PRN Reason: MILD-MOD PAIN (1-5/10) Lactobacillus Acidophilus (Acidophilus) 1 tablet PO DAILY [facility] Losartan Potassium (Cozaar) 50 mg PO BID [facility] Metoprolol Tartrate (Lopressor (Beta Monica)) 75 mg PO BID [facility] Morphine Sulfate () 2 - 4 mg IV Q2H PRN PRN PRN Reason: SEVERE PAIN (6-10/10) Multivitamins/Minerals (Multivitamin With Minerals) 1 tablet PO DAILY@0800 [facility] Nutritional Formula (Lactose Free) (Ensure Clear) 120 ml PO TIDCM [facility] Ondansetron HCl (Zofran) 4 mg IV Q8H PRN PRN PRN Reason: NAUSEA Oxycodone HCl (Oxyir) 5 - 10 mg PO Q4H PRN PRN PRN Reason: MOD-SEVERE PAIN (4-10/10) Promethazine HCl (Phenergan) 12.5 mg IM Q6H PRN PRN; Protocol PRN Reason: NAUSEA/VOMITING Senna/Docusate Sodium (Senokot-S, Iesha-Colace) 2 tablet PO BID [facility] Sodium Chloride () 5 - 30 ml IV UD PRN PRN Reason: SALINE FLUSH Verapamil HCl (Calan Sr) 120 mg PO QHS [facility] Code Visit Inpatient E&M: 41170 Subs Hosp L2
[2018-05-29] MEDS: Aspirin 81 MG TAB.CHEW PO (07:56)
[2018-05-29] MEDS: Celecoxib 200 MG Capsule PO (07:56)
[2018-05-29] MEDS: Multivitamins,Ther W-Minerals Tablet 1 TABLET PO (07:56)
[2018-05-29] MEDS: Escitalopram Oxalate 10 MG Tablet PO (07:57)
[2018-05-29] MEDS: Famotidine 20 MG Tablet PO (07:57)
[2018-05-29] MEDS: Senna/Docusate Sodium 1 Tablet 2 TABLET PO (07:57)
[2018-05-29] MEDS: Escitalopram Oxalate 20 MG Tablet PO (07:57)
[2018-05-29 13:46] VITALS: BP 166/64; PULSE 60; RESP 16; TEMP 36.6; O2SAT 97
--- NOTE | 2018-05-29 14:18 | NURSING ---
minimal bleeding from knee t/o morning- after 2 sessions with therapy. Pt able to be d/c'ed at this time per Dr. Heath's order. Assisted with wheelchair for d/c at this time.
== END 2018-05-29 14:10 | disposition home or self-care (01) | DRG 470 ==
LOC: MS3 05:50
PROVIDERS: Admitting Provider Specialist; Family Provider Student in an Organized Health Care Education/Training Program; PCP Student in an Organized Health Care Education/Training Program; Referring Provider Specialist; Visit Provider Specialist
PROC: 0SRD0J9 Replacement of Left Knee Joint with Synthetic Substitute, Cemented, Open Approach (ICD-10-PCS; CPT 27447; principal; 2018-05-28 07:30)
DX: M17.0 Bilateral primary osteoarthritis of knee (principal); I10 Essential (primary) hypertension; Z87.891 Personal history of nicotine dependence; E66.9 Obesity, unspecified; Z68.31 Body mass index [BMI] 31.0-31.9, adult; F41.8 Other specified anxiety disorders
CPT/HCPCS: 36415; 73560; 80048; 85025; 85027; 87081; 97110; 97116; 97161; 97165; 97530; 97535; 99251; C1776; J7120; A4216; G0463; J2405

== ENCOUNTER → 2018-06-24 08:45 | Outpatient (CLI) | payer MEDICARE, OTHER, SELFPAY ==
[2018-06-12 16:05] VITALS: BMI 31.6
--- NOTE | 2018-06-24 08:47 | ECHOD_ITS ---
Reason For Study: SYNCOPE Procedure This was a 2D Doppler, Color Flow transthoracic echocardiogram. Exam performed in department. Left Ventricle Normal size and thickness. The estimated ejection fraction is 65 %. Stage 1 diastolic dysfunction. No regional wall motion abnormalities noted. Right Ventricle Normal size and thickness. Normal systolic function. Atria Normal left atrium. Normal right atrium. Normal atrial septum. Mitral Valve The mitral valve is structurally normal. No prolapse or stenosis seen. Mild (1+) mitral valve insufficiency. Tricuspid Valve Normal tricuspid valve. Trivial tricuspid valve insufficiency. Right ventricular systolic pressure estimated to be 35 mmHg. Aortic Valve Trisinus/trileaflet aortic valve. Aortic sclerosis, no stenosis. Trivial aortic valve insufficiency. Pulmonic Valve Normal pulmonic valve. Great Vessels Normal aortic root. Normal arch. Normal inferior vena cava. Inferior vena cava collapse with sniff. Pericardium/Pleural No pericardial effusion. MMode/2D Measurements & Calculations LVIDd: 3.7 cm IVSd: 1.0 cm Ao root diam: 3.1 cm LVIDs: 2.7 cm LVPWd: 0.88 cm RVDd: 3.4 cm FS: 28.6 % LAV(MOD-bp): 39.3 ml LVAd ap4: 28.1 cm2 SV(MOD-sp4): 48.3 ml LAV(MOD-bp) Indexed: 23.5 ml/m2 EDV(MOD-sp4): 81.9 ml LAV(MOD-sp2): 35.6 ml EDV(sp4-el): 87.1 ml LAV(MOD-sp4): 43.3 ml LVAs ap4: 16.2 cm2 ESV(MOD-sp4): 33.6 ml ESV(sp4-el): 35.2 ml EF(MOD-sp4): 59.0 % EF(sp4-el): 59.6 % SV(sp4-el): 51.9 ml LA A4 area: 16.8 cm2 LA dimension(2D): 3.2 cm RA A4 area: 13.7 cm2 Time Measurements MV dec time: 0.42 sec Doppler Measurements & Calculations MV E max mick: 53.4 cm/sec Lat Peak E' Mick: 8.5 cm/sec Med Peak E' Mick: 6.0 cm/sec MV A max mick: 87.7 cm/sec E/E' lat: 6.3 E/E' med: 8.9 MV E/A: 0.61 Ao V2 max: 155.8 cm/sec AI max mick: 273.0 cm/sec LV V1 max: 106.2 cm/sec Ao max P.7 mmHg AI max P.8 mmHg LV V1 max P.5 mmHg AI dec slope: 183.4 cm/sec2 AI P1/2t: 436.0 msec TR max mick: 266.4 cm/sec TR max P.4 mmHg Interpretation Summary The estimated ejection fraction is 65 %. Stage 1 diastolic dysfunction. Mild (1+) mitral valve insufficiency. Trivial tricuspid valve insufficiency. Right ventricular systolic pressure estimated to be 35 mmHg. Trivial aortic valve insufficiency. Compared to echo report dated 07/29/2012, LV function has remained the same, but RVSP has increased from 19 to 35 mm Hg. Ordering Physician: Neville Giles Referring Physician: SEDA MART Performed By: Anna Carr, ROMA, RVT
--- OUTSIDE RECORDS SUMMARY | 2018-09-25 14:38 | XMS RPT_ITS ---
:1940 Author Organization OHIP Support Name Relationship Address Phone R Unavailable Unavailable Unavailable SAVANNAH HUTCHINS Unavailable [address] + [place] [address] VALDO TEJEDA Unavailable [address] + [place] [address] R Unavailable Unavailable Unavailable SAVANNAH HUTCHINS Unavailable [address] + [place] [address] VERNA VALDO Unavailable [address] + [place] [address] R Unavailable Unavailable Unavailable SAVANNAH HUTCHINS Unavailable [address] + [place] [address] VERNA VALDO Unavailable [address] + [place] [address] R Unavailable Unavailable Unavailable SAVANNAH HUTCHINS Unavailable [address] + [place] [address] VERNA VALDO Unavailable [address] + [place] [address] R Unavailable Unavailable Unavailable SAVANNAH HUTCHINS Unavailable [address] + [place] [address] VERNA VALDO Unavailable [address] + [place] [address] R Unavailable Unavailable Unavailable SAVANNAH HUTCHINS Unavailable [address] + [place] [address] VERNA VALDO Unavailable [address] + [place] [address] R Unavailable Unavailable Unavailable SAVANNAH HUTCHINS Unavailable [address] + [place] [address] VERNA VALDO Unavailable [address] + [place] [address] R Unavailable Unavailable Unavailable SAVANNAH HUTCHINS Unavailable [address] + [place] [address] VALDO TEJEDA Unavailable [address] + [place] [address] Care Team Providers Name Role Phone [facility]ODGER [facility]NAS Attending Unavailable ARENAS, RODGER L Attending Unavailable ARENAS, RODGER L Referring Unavailable ARENAS, RODGER L Referring Unavailable ARENAS, RODGER L Attending Unavailable ARENAS, RODGER L Referring Unavailable ARENAS, RODGER L Referring Unavailable ARENAS, RODGER L Attending Unavailable ARENAS, RODGER L Referring Unavailable TIM JURADO ([facility]) Attending Unavailable ARENAS, RODGER L Attending Unavailable ARENAS, RODGER L Attending Unavailable ARENAS, RODGER L Referring Unavailable ARENAS, RODGER L Referring Unavailable ARENAS, RODGER L Attending Unavailable Neville Giles Attending Unavailable MoodispaNeville kincaid Referring Unavailable Arenas, Rodger Primary Care Unavailable Vince Santamaria Attending Unavailable Neville Giles Referring Unavailable Arenas, Rodger Primary Care Unavailable Neville Giles Consulting Unavailable Luis Eduardo Preciado Attending Unavailable Arenas, Rodger Primary Care Unavailable Luis Eduardo Preciado Referring Unavailable KumarJose Admitting Unavailable Kumar, Jose Attending Unavailable Kumar, Jose Referring Unavailable Arenas, Rodger Primary Care Unavailable Savannah Clay Consulting Unavailable Kumar, Jose Admitting Unavailable Kitlucien, Savannah Attending Unavailable KumarJose Referring Unavailable Arenas, Rodger Primary Care Unavailable Savannah Clay Consulting Unavailable Kumar, Jose Consulting Unavailable Kumar, Jose Admitting Unavailable Obed, Savannah Attending Unavailable KumarJose Referring Unavailable Arenas, Rodger Primary Care Unavailable Savannah Clay Consulting Unavailable Jose Heath Consulting Unavailable Chary Hansen Attending Unavailable MoodkarispaNeville kincaid Attending Unavailable Arenas, Rodger Referring Unavailable PROBLEMS PROBLEMS DATE TYPE CONDITION / CODE ATTENDING STATUS SOURCE 07/18/2018 Active Encounter for other NA Active [facility] preprocedural [facility] Main examination / [facility] Z01.818(ICD-10) Repository 06/24/2018 Unknown I10 - Essential Vince Santamaria Active [place] (primary) hypertension Community / I10(ICD-10) Hospital Repository 06/24/2018 Unknown I47.1 - Vince Santamaria Active [place] Supraventricular Community tachycardia / Hospital I47.1(ICD-10) Repository 06/24/2018 Unknown R55 - Syncope and Vince Santamaria Active [place] collapse / R55(ICD-10) [facility] Repository 05/29/2018 Unknown G89.18 - Other acute Jose Heath Active [place] postprocedural pain / [facility] G89.18(ICD-10) Hospital Repository 02/03/2018 Unknown L57.8 - Other skin Luis Eduardo Preciado Active [place] changes due to chronic Community exposure to Hospital nonionizing radiation Repository / L57.8(ICD-10) 01/10/2018 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 [facility] (current[facility] drug therapy [facility] Main / Z79.899(ICD-10) [facility] Repository 09/02/2017 Active Abnormal results of NA Active [facility] thyroid function [facility] Main studies / [place] R94.6(ICD-10) Repository PROCEDURES PROCEDURES No Procedure Records FoundRESULTS RESULTS PROGRESS Observed: 07/22/2018 Status: COMPLETED Source: HOLIDAY 11:53 AM [facility] RE[facility] HNO ID: [id number] Author: Rodger Arenas Service: (none) Author Type: Physician Type: Progress Notes Filed: 07/22/2018 1:06 PM Note Text: CC: Chichi Tejeda is a 77 year old female who presents to the office for follow up HPI: Seen in office 2 months ago, at that time: Ready for upcoming surgery by Orthopedics on knee arthritis for total knee replacement surgery, has had some elevated blood pressure readings, is taking 75 mg Metoprolol in AM and PM and Losartan 50 mg AM and PM. No symptoms, denies CP or dyspnea or dizziness/LH or edema or palpitations or RG. ? She had left total knee replacement by Dr. Heath the end of May 2018 Currently Left knee replacement, overall without any pain, rare use of tylenol. Did take aleve tablet x 1 one day which caused her BLOOD PRESSURE to elevate up to 180s systolic. Did have 2 near syncope episodes while she was at [facility], in which she had a lot of pain and she was standing up and felt the room start to go dark and sat down before she passed out, no falls. Does think symptoms have improved since trying to drink more electrolyte rich fluids and more careful when she gets up to stand and walk etc. She is wearing compression stockings on a daily basis as well. She was seen by Dr. Giles, no other medication changes, continuing her on the low dose of amlodipine. BLOOD PRESSURE 120-140s/60-80s overall. Denies any dyspnea or CP or pressure of RG or leg edema concerns. No fevers or chills. Anxiety, use of intermittent ativan, states this helps a lot when she feels panicked. She admits that she was starting to mushroom picker a cigarette when she felt that way and with ativan this helps her avoid smoking, which is only rare when she dose. Is taking the lexapro as well which helps. Many triggers such as worrying about her great grandchildren and grandchildren and sons as well as driving etc. Is trying to work through the triggers, would like to start volunteering at [facility] again and trying to make plans etc with friends to go to lunch. PAST MEDICAL HISTORY Diagnosis Date - Actinic Keratosis: Premalignant AK: R cheek face 03/19/2011 - Anxiety state, unspecified - Benign neoplasm of rectum and anal canal - Degenerative arthritis of knee, bilateral ortho Dr. 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 - L'SCOPE DX W/WO BRUSHINGS/WASHINGS 04/24/1976 Laparoscopy BPS - LAPAROSCOPIC CHOLEYCYSTECTOMY 09/21/1999 Cholecystectomy, lap - LAPAROSCOPY, SURGICAL, APPENDECTOMY 06-23-15 - S KIT KNEE ARTHOSCOPY CARDINAL 11/16/2011 left knee Current Outpatient Prescriptions: amLODIPine (NORVASC) 2.5 mg tablet Take 2.5 mg by mouth once daily. LORazepam (ATIVAN) 0.5 mg tab Take 0.5 mg by mouth three times daily as needed. verapamil ER (VERELAN) 120 mg 24 hr capsule Take 1 capsule by mouth daily at bedtime. metoprolol tartrate, short acting, (LOPRESSOR) 50 mg tablet Take 1.5 tablets by mouth twice daily. escitalopram oxalate (LEXAPRO) 20 mg tablet Take 1 tablet by mouth once daily. COMPOUNDED PRESCRIPTION Take 1,000 mg by mouth once daily. Vit d 3 1000 - daily triamcinolone acetonide (KENALOG) 0.1 % cream Apply 1 application to affected area three times daily as needed. Apply sparingly to area for rash/itching. losartan (COZAAR) 50 mg tablet Take 1 tablet by mouth twice daily. COMPOUNDED PRESCRIPTION Magnesium 1 daily aspirin, enteric coated (ASPIRIN, ENTERIC COATED) 81 mg EC tablet Take 1 tablet by mouth once daily. therapeutic multivitamin ORAL tablet Take one(1) tablet daily. omega-3 fatty acids(FISH OIL 500 MG CAP) Take one(1) capsule daily. escitalopram oxalate (LEXAPRO) 10 mg tablet Take 1 tablet by mouth once daily. Total of 30 mg daily No current facility-administered medications for this visit. ALLERGIES Allergen Reactions - E-Mycin [Erythromyc* GI Upset - Mobic [Meloxicam] Other: See Comments Acid reflux - Norvasc [Amlodipine* Itching insomnia - Spironolactone Diarrhea - Lfnndbk-Irr-Utv Red* Other: See Comments Severe myalgias - Wellbutrin [Bupropi* Hives - Crestor [Rosuvastat* Intolerance Myalgia - Lipitor [Atorvastat* Intolerance Myalgia - Lisinopril Cough Social History Marital status: Spouse name: Savannah Years of education: Number of children: 3 Occupational History Occupation Employer Comment retired [employer] Social History Main Topics Smoking status: Former Smoker Packs/day: 0.00 Years: 5.00 Quit date: 07/08/1999 Smokeless tobacco: Never Used Comment: Quit 1999 2-3 cig per day Alcohol use: Yes Comment: wine occasionallly Drug use: No Sexual activity: No Social History Narrative , Goes by Mariya Enjoys crocheting, quilting ROS: See HPI PE: BP 146/80 Pulse 64 Temp (Src) 96.6 (Left Tympanic) Resp 20 Wt 152 lb (68.9kg) Gen: AANDOX3, NAD, non-toxic appearing HEENT: PERRLA, EOMs intact b/l, nares without drainage, pharynx without erythema, exudate, lesions, or drainage. Uvula midline. Neck: No LAD, no thyromegaly, no meningismus. CV: RRR, 2/6 HSM RUSB murmur, normal s1s2 Lungs: CTA b/l, no wheezing Skin: No rashes, lesions, or wounds on exposed skin. No edema Left knee with healed midline vertical incision without any signs of infection ASSESSMENT/PLAN: 1. Essential hypertension - ICD9: 401.9, ICD10: I10 (primary diagnosis) - good control - Continue current medication(s) - Encouraged dietary sodium restriction/DASH diet - Recommended regular aerobic exercise. - Recommend home blood pressure monitoring, to bring results in on next visit - Goal of BP <130/80 2. Anxiety state - ICD9: 300.00, ICD10: F41.1 - continue lexapro, okay for prn Ativan, d/w her coping strategies and ways to deal with how she feels on a daily basis when triggered. 3. Dysthymia - ICD9: 300.4, ICD10: F34.1 - stable, see above, good support from vickie and sons 4. Arthritis, multiple joint involvement - ICD9: 716.99, ICD10: M12.9 - stable, avoid NSAIDs as d/w her today due to risks of elevated BLOOD PRESSURE and SE 5. Mixed hyperlipidemia - ICD9: 272.2, ICD10: E78.2 - good control - Encouraged following a low fat, low cholesterol diet. - Discussed the benefits of regular aerobic exercise and weight loss. 6. Impaired fasting blood sugar - ICD9: 790.21, ICD10: R73.01 - stable 7. Tobacco use - ICD9: 305.1, ICD10: Z72.0 - Cessation encouraged. - Physiologic and physical aspects of tobacco addiction as well as strategies for quitting were discussed. - Counseling was given focusing on the harmful effects of this addiction especially given the patient's medical condition(s) which will be worsened because of the chemicals in tobacco. Rodger Arenas DO Return if no improvement. Follow up with Rodger Arenas DO. Discussed risks, benefits, alternatives, and potential side effects of medications. Patient/Guardian expressed understanding and agreed with the plan. See patient instructions. Rodger Arenas DO [address] [place] [address] JOSE Observed: 07/22/2018 Status: COMPLETED Source: HOLIDAY 11:00 AM [facility] REPOSITORY Office Visit (FAMPWS) CHICHI TEJEDA ([id number]) 1940 F Date Time Provider Department 07/22/18 11:00 AM [facility] During your visit today, we recorded the following information about you: Temperature Pulse Respiration Blood pressure 96.6 degrees 64/minute 20/minute 146/80 Weight 68.9 kg Rodger Arenas DO 07/22/2018 1:06 PM Signed CC: Chichi Tejeda is a 77 year old female who presents to the office for follow up HPI: Seen in office 2 months ago, at that time: Ready for upcoming surgery by Orthopedics on knee arthritis for total knee replacement surgery, has had some elevated blood pressure readings, is taking 75 mg Metoprolol in AM and PM and Losartan 50 mg AM and PM. No symptoms, denies CP or dyspnea or dizziness/LH or edema or palpitations or RG. ? She had left total knee replacement by Dr. Heath the end of May 2018 Currently Left knee replacement, overall without any pain, rare use of tylenol. Did take aleve tablet x 1 one day which caused her BLOOD PRESSURE to elevate up to 180s systolic. Did have 2 near syncope episodes while she was at [facility]ICAL THERAPY, in which she had a lot of pain and she was standing up and felt the room start to go dark and sat down before she passed out, no falls. Does think symptoms have improved since trying to drink more electrolyte rich fluids and more careful when she gets up to stand and walk etc. She is wearing compression stockings on a daily basis as well. She was seen by Dr. Giles, no other medication changes, continuing her on the low dose of amlodipine. BLOOD PRESSURE 120-140s/60-80s overall. Denies any dyspnea or CP or pressure of RG or leg edema concerns. No fevers or chills. Anxiety, use of intermittent ativan, states this helps a lot when she feels panicked. She admits that she was starting to mushroom picker a cigarette when she felt that way and with ativan this helps her avoid smoking, which is only rare when she dose. Is taking the lexapro as well which helps. Many triggers such as worrying about her great grandchildren and grandchildren and sons as well as driving etc. Is trying to work through the triggers, would like to start volunteering at [facility] again and trying to make plans etc with friends to go to lunch. PAST MEDICAL HISTORY Diagnosis Date - Actinic Keratosis: Premalignant AK: R cheek face 03/19/2011 - Anxiety state, unspecified - Benign neoplasm of rectum and anal canal - Degenerative arthritis of knee, bilateral ortho Dr. 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 - L'SCOPE DX W/WO BRUSHINGS/WASHINGS 04/24/1976 Laparoscopy BPS - LAPAROSCOPIC CHOLEYCYSTECTOMY 09/21/1999 Cholecystectomy, lap - LAPAROSCOPY, SURGICAL, APPENDECTOMY 06-23-15 - S KIT KNEE ARTHOSCOPY CARDINAL 11/16/2011 left knee Current Outpatient Prescriptions: amLODIPine (NORVASC) 2.5 mg tablet Take 2.5 mg by mouth once daily. LORazepam (ATIVAN) 0.5 mg tab Take 0.5 mg by mouth three times daily as needed. verapamil ER (VERELAN) 120 mg 24 hr capsule Take 1 capsule by mouth daily at bedtime. metoprolol tartrate, short acting, (LOPRESSOR) 50 mg tablet Take 1.5 tablets by mouth twice daily. escitalopram oxalate (LEXAPRO) 20 mg tablet Take 1 tablet by mouth once daily. COMPOUNDED PRESCRIPTION Take 1,000 mg by mouth once daily. Vit d 3 1000 - daily triamcinolone acetonide (KENALOG) 0.1 % cream Apply 1 application to affected area three times daily as needed. Apply sparingly to area for rash/itching. losartan (COZAAR) 50 mg tablet Take 1 tablet by mouth twice daily. COMPOUNDED PRESCRIPTION Magnesium 1 daily aspirin, enteric coated (ASPIRIN, ENTERIC COATED) 81 mg EC tablet Take 1 tablet by mouth once daily. therapeutic multivitamin ORAL tablet Take one(1) tablet daily. omega-3 fatty acids(FISH OIL 500 MG CAP) Take one(1) capsule daily. escitalopram oxalate (LEXAPRO) 10 mg tablet Take 1 tablet by mouth once daily. Total of 30 mg daily No current facility-administered medications for this visit. ALLERGIES Allergen Reactions - E-Mycin [Erythromyc* GI Upset - Mobic [Meloxicam] Other: See Comments Acid reflux - Norvasc [Amlodipine* Itching insomnia - Spironolactone Diarrhea - Xdeibpp-Ecr-Eav Red* Other: See Comments Severe myalgias - Wellbutrin [Bupropi* Hives - Crestor [Rosuvastat* Intolerance Myalgia - Lipitor [Atorvastat* Intolerance Myalgia - Lisinopril Cough Social History Marital status: Spouse name: Savannah Years of education: Number of children: 3 Occupational History Occupation Employer Comment retired [employer] Social History Main Topics Smoking status: Former Smoker Packs/day: 0.00 Years: 5.00 Quit date: 07/08/1999 Smokeless tobacco: Never Used Comment: Quit 1999 2-3 cig per day Alcohol use: Yes Comment: wine occasionallly Drug use: No Sexual activity: No Social History Narrative , Goes by Mariya Enjoys crocheting, quilting ROS: See HPI PE: BP 146/80 Pulse 64 Temp (Src) 96.6 (Left Tympanic) Resp 20 Wt 152 lb (68.9kg) Gen: AANDOX3, NAD, non-toxic appearing HEENT: PERRLA, EOMs intact b/l, nares without drainage, pharynx without erythema, exudate, lesions, or drainage. Uvula midline. Neck: No LAD, no thyromegaly, no meningismus. CV: RRR, 2/6 HSM RUSB murmur, normal s1s2 Lungs: CTA b/l, no wheezing Skin: No rashes, lesions, or wounds on exposed skin. No edema Left knee with healed midline vertical incision without any signs of infection ASSESSMENT/PLAN: 1. Essential hypertension - ICD9: 401.9, ICD10: I10 (primary diagnosis) - good control - Continue current medication(s) - Encouraged dietary sodium restriction/DASH diet - Recommended regular aerobic exercise. - Recommend home blood pressure monitoring, to bring results in on next visit - Goal of BP <130/80 2. Anxiety state - ICD9: 300.00, ICD10: F41.1 - continue lexapro, okay for prn Ativan, d/w her coping strategies and ways to deal with how she feels on a daily basis when triggered. 3. Dysthymia - ICD9: 300.4, ICD10: F34.1 - stable, see above, good support from vickie and sons 4. Arthritis, multiple joint involvement - ICD9: 716.99, ICD10: M12.9 - stable, avoid NSAIDs as d/w her today due to risks of elevated BLOOD PRESSURE and SE 5. Mixed hyperlipidemia - ICD9: 272.2, ICD10: E78.2 - good control - Encouraged following a low fat, low cholesterol diet. - Discussed the benefits of regular aerobic exercise and weight loss. 6. Impaired fasting blood sugar - ICD9: 790.21, ICD10: R73.01 - stable 7. Tobacco use - ICD9: 305.1, ICD10: Z72.0 - Cessation encouraged. - Physiologic and physical aspects of tobacco addiction as well as strategies for quitting were discussed. - Counseling was given focusing on the harmful effects of this addiction especially given the patient's medical condition(s) which will be worsened because of the chemicals in tobacco. Rodger Arenas DO Return if no improvement. Follow up with Rodger Arenas DO. Discussed risks, benefits, alternatives, and potential side effects of medications. Patient/Guardian expressed understanding and agreed with the plan. See patient instructions. Rodger Arenas, [address] [place] [address] Referring Provider: SELF [[id number]] Allergies As of Date: 07/22/2018 Noted Allergy Reaction E-MYCIN (ERYTHROMYCIN) 05/04/2005 8 - GI Upset MOBIC (MELOXICAM) 04/24/2016 14 - Other: See Comments Comments: Acid reflux NORVASC (AMLODIPINE BESYLATE) 03/02/2011 9 - Itching Comments: insomnia SPIRONOLACTONE 07/13/2016 6 - Diarrhea MDMYSMF-IFD-LBR REDUCTASE INHIBIT*09/28/2013 14 - Other: See Comments Comments: Severe myalgias WELLBUTRIN (BUPROPION HCL) 01/13/2018 4 - Hives CRESTOR (ROSUVASTATIN) 09/20/2009 5 - Intolerance Comments: Myalgia LIPITOR (ATORVASTATIN) 09/20/2009 5 - Intolerance Comments: Myalgia LISINOPRIL 02/24/2007 3 - Cough Date Reviewed: 07/22/2018 Reviewed by: Bernadine Ritter LPN - Fully Assessed Reason for Visit: Follow Up [171] Cmt: Bp Primary Visit Diagnosis:Essential hypertension [I10] Other Visit Diagnoses:Anxiety state [F41.1] Dysthymia [F34.1] Arthritis, multiple joint involvement [M12.9] Mixed hyperlipidemia [E78.2] Impaired fasting blood sugar [R73.01] Tobacco use [Z72.0] Prescriptions as of 07/22/2018 Sig: AMLODIPINE 2.5 MG TABLET Take 2.5 mg by mouth once teresa* LORAZEPAM 0.5 MG TABLET Take 0.5 mg by mouth three ti* VERAPAMIL ER 120 MG 24 HR CAP* Take 1 capsule by mouth daily* METOPROLOL TARTRATE 50 MG TAB* Take 1.5 tablets by mouth twi* ESCITALOPRAM 20 MG TABLET Take 1 tablet by mouth once d* COMPOUNDED PRESCRIPTION Take 1,000 mg by mouth once d* TRIAMCINOLONE ACETONIDE 0.1 %* Apply 1 application to affect* LOSARTAN 50 MG TABLET Take 1 tablet by mouth twice * COMPOUNDED PRESCRIPTION Magnesium 1 daily ASPIRIN 81 MG TABLET,DELAYED * Take 1 tablet by mouth once d* THERAPEUTIC MULTIVITAMIN TABL* Take one(1) tablet daily. FISH OIL 500 MG CAPSULE Take one(1) capsule daily. ESCITALOPRAM 10 MG TABLET Take 1 tablet by mouth once d* Medication notes this encounter ESCITALOPRAM 10 MG TABLET >> Bernadine Ritter LPN 07/22/2018 11:00 AM >> BERNADINE RITTER LPN Jul 22, 2018 11:00 AM finished Problem List As Of Date 07/22/2018 Noted Resolved DEPRESSIVE DISORDER NEC [F32.9] Anxiety state [F41.1] Esophageal reflux [K21.9] 02/12/2012 Irritable bowel syndrome [K58.9] BONE AND CARTILAGE DIS NOS [M89.9, M94.9] More... DIFFUS CYSTIC MASTOPATHY [N60.19] More... Essential hypertension [I10] INVALID FOR* HYPERLIPIDEMIA NEC/NOS [E78.5] INVALID FOR* HYPERGLYCEMIA [R79.89] INVALID FOR*03/05/2013 Urticaria, unspecified [L50.9] INVALID FOR*02/12/2012 Unspecified pruritic disorder [L29.9] INVALID FOR*02/12/2012 Unspecified hypertrophic and atrophic condition*INVALID FOR*08/11/2010 Other chronic dermatitis due to solar radiation*INVALID FOR*08/11/2010 NEVUS RIGHT UPPER BACK//BENIGN VLAD SKIN TRUNK [*INVALID FOR*08/11/2010 DERMATOFIBROMA///BENIGN VLAD SKIN ARM [D23.60] INVALID FOR*08/11/2010 Benign neoplasm of scalp and skin of neck [D23.*INVALID FOR*08/11/2010 Open wound site NOS [T14.8XXA] INVALID FOR*08/11/2010 Myalgia [M79.10] INVALID FOR*03/05/2013 Actinic Keratosis: Premalignant AK: R cheek fa*INVALID FOR* Inflamed Seborrheic Keratoses [L82.0] INVALID FOR*02/12/2012 Cutaneous skin tags: base neck and left axilla *INVALID FOR*02/12/2012 Intradermal nevus [D23.9] INVALID FOR*02/12/2012 Melanocytic nevi of trunk [D22.5] INVALID FOR*03/05/2013 Melanocytic nevus of upper extremity [D22.60] INVALID FOR*03/05/2013 Other seborrheic keratosis [L82.1] INVALID FOR*02/12/2012 Solar lentigines [L81.4] INVALID FOR*02/12/2012 Actinic skin damage [L57.8] INVALID FOR*02/12/2012 Pain in limb [M79.609] INVALID FOR*03/05/2013 Benign neoplasm of rectum and anal canal [D12.8*INVALID FOR* Pineal gland, 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] INVALID FOR* Pruritus [L29.9] INVALID FOR* Winter itch [L29.8] INVALID FOR* Xerosis cutis [L85.3] INVALID FOR* 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] INVALID FOR* Other seborrheic keratosis [L82.1] INVALID FOR* Melanocytic nevi of trunk [D22.5] INVALID FOR* Polo angioma [D18.01] INVALID FOR* Telangiectasia [I78.1] INVALID FOR* Solar lentigo [L81.4] INVALID FOR* Actinic skin damage [L57.8] INVALID FOR* Syncope [R55] INVALID FOR* Abnormal tilt table test [R94.09] INVALID FOR* Hypercholesterolemia [E78.00] INVALID FOR* Hypertension [I10] INVALID FOR*07/12/2016 Acute appendicitis with localized peritonitis [*INVALID FOR* SVT (supraventricular tachycardia) (HCC) [I47.1]INVALID FOR* Impaired fasting blood sugar [R73.01] Anxiety state, unspecified [F41.1] Sweating abnormality [L74.9] INVALID FOR* Overweight (BMI 25.0-29.9) [E66.3] INVALID FOR* Arthritis, multiple joint involvement [M12.9] INVALID FOR* Gastroesophageal reflux disease [K21.9] INVALID FOR* Anxiety [F41.9] INVALID FOR* Elevated TSH [R79.89] INVALID FOR* Dysthymia [F34.1] INVALID FOR* Tobacco use [Z72.0] INVALID FOR* Mixed hyperlipidemia [E78.2] INVALID FOR* Encounter Status:Closed by RODGER ARENAS DO on 07/22/18 CBC Collected: 07/18/2018 Status: F Source: [place] 8[facility]26 AM [facility] REPOSITORY TYPE CODE TESTS RESULT OUT OF REFERENCE UNITS RANGE LAB WBC 3.70-11.00 k/uL WBC 4.37 LAB RBC 3.90-5.20 m/uL RBC 4.50 LAB HGB 11.5-15.5 g/dL Hemoglobin 13.5 LAB HCT 36.0-46.0 % Hematocrit 42.4 LAB MCV 80.0-100.0 fL MCV 94.2 LAB MCH 26.0-34.0 pG MCH 30.0 LAB MCHC 30.5-36.0 g/dL MCHC 31.8 LAB RDWCV 11.5-15.0 % RDW-CV 13.1 LAB PLTCT 150-400 k/uL Platelet Count 231 LAB MPV 9.0-12.7 fL MPV 11.2 LAB ABSNUC <0.01 k/uL Absolute nRBC <0.01 Performed By: #### CBC, CMP #### [facility] [address] [place], [place] [address] COMP METABOLIC PANEL Collected: 07/18/2018 Status: F Source: [place] 8:26 AM [facility] REPOSITORY TYPE CODE TESTS RESULT OUT OF REFERENCE UNITS RANGE LAB TP 6.3-8.0 g/dL Protein, Total 7.7 LAB ALB 3.9-4.9 g/dL Albumin 4.2 LAB CA 8.5-10.2 mg/dL Calcium, Total 9.8 LAB TBIL 0.2-1.3 mg/dL Bilirubin, Total 0.2 LAB ALKP 34-123 U/L Alkaline Phosphatase 94 LAB AST 13-35 U/L AST 15 LAB GLU 74-99 mg/dL Glucose High 114 Result Comment: The [place] Diabetes Association (ADA) provides guidance for cutoff values for fasting glucose and random glucose. The ADA defines fasting as no caloric intake for at least 8 hours. Fas ting plasma glucose results between 100 to 125 mg/dL indicate increased risk for diabetes (prediabetes). Fasting plasma glucose results greater than or equal to 126 mg/dL meet the criteria for diagnosis of diabetes. In the absence of unequivocal hyperglycemia, results should be confirmed by repeat testing. In a patient with classic symptoms of hyperglycemia or hyperglycemic crisis, random plasma glucose results greater than or equal to 200 mg/dL meet the criteria for diagnosis of diabetes. Reference: Standards of Medical Care in Diabetes 2016, [place] Diabetes Association. Diabetes Care. 2016.39(Suppl 1). LAB BUN 7-21 mg/dL BUN 14 LAB CRET 0.58-0.96 mg/dL Creatinine 0.73 LAB NA 136-144 mmol/L Sodium 139 LAB K 3.7-5.1 mmol/L Potassium 4.2 LAB CL 97-105 mmol/L Chloride 102 LAB CO2 22-30 mmol/L CO2 25 LAB AGAP 9-18 mmol/L Anion Gap 12 LAB ALT 7-38 U/L ALT 15 LAB GFRAA eGFR- Amer. >60 LAB GFRNAA . eGFR-All Other Races >60 Result Comment: eGFR (Estimated GFR) Units of measure: mL/min/1.73 meters squared eGFR is derived from the reexpressed MDRD Study equation using the following parameters: serum creatinine, age, gender and race. The creatinine assay has been calibrated to be traceable to IDMS. An eGFR <60 mL/min/1.73m2 for >3 months is consistent with chronic kidney disease. Refer to KDOQI guidelines for clinical interpretation. In patients with unstable renal function, e.g. those with acute kidney injury, the eGFR may not accurately reflect actual GFR. Performed By: #### CBC, CMP #### [facility] [address] [place], [place] [address] HEMOGLOBIN A1C Collected: 07/18/2018 Status: F Source: [place] 8:26 AM [facility] REPOSITORY TYPE CODE TESTS RESULT OUT OF REFERENCE UNITS RANGE LAB HGBA1C 4.3-5.6 % High Hemoglobin A1c 5.9 Result Comment: [place] Diabetes Association guidelines indicate that patients with HgbA1c in the range 5.7-6.4% are at increased risk for development of diabetes, and intervention by lifestyle modification may be beneficial. HgbA1c greater or equal to 6.5% is considered diagnostic of diabetes. LAB HBA0 mg/dL Est. Average Glucose 123 Result Comment: eAG: (Estimated average glucose) is a calculated value from HgbA1c and is exhibit display representative of the average blood glucose level in the last 2-3 month period. Performed By: #### HBA1C #### [facility] [address] [place], [place] [address] CNPTOUTREACH Observed: 07/07/2018 Status: COMPLETED Source: [place] 12:00 AM [facility] REPOSITORY Patient Outreach ([facility]) VERNACHICHI JOSEPH ([id number]) 1940 F Date Time Provider Department 07/07/18 RODGER ARENAS [facility] During your visit today, we recorded the following information about you: Allergies As of Date: 07/07/2018 Noted Allergy Reaction E-MYCIN (ERYTHROMYCIN) 05/04/2005 8 - GI Upset MOBIC (MELOXICAM) 04/24/2016 14 - Other: See Comments Comments: Acid reflux NORVASC (AMLODIPINE BESYLATE) 03/02/2011 9 - Itching Comments: insomnia SPIRONOLACTONE 07/13/2016 6 - Diarrhea KXIPEML-SPY-MDU REDUCTASE INHIBIT*09/28/2013 14 - Other: See Comments Comments: Severe myalgias WELLBUTRIN (BUPROPION HCL) 01/13/2018 4 - Hives CRESTOR (ROSUVASTATIN) 09/20/2009 5 - Intolerance Comments: Myalgia LIPITOR (ATORVASTATIN) 09/20/2009 5 - Intolerance Comments: Myalgia LISINOPRIL 02/24/2007 3 - Cough Date Reviewed: 05/21/2018 Reviewed by: Bernadine Ritter LPN - Fully Assessed Visit Diagnosis:Medication management [Z79.899] Order(s):HGB A1C [[id number]] Order #: [id number] FUTURE Prescriptions as of 07/07/2018 Sig: VERAPAMIL ER 120 MG 24 HR CAP* Take 1 capsule by mouth daily* METOPROLOL TARTRATE 50 MG TAB* Take 1.5 tablets by mouth twi* ESCITALOPRAM 10 MG TABLET Take 1 tablet by mouth once d* ESCITALOPRAM 20 MG TABLET Take 1 tablet by mouth once d* COMPOUNDED PRESCRIPTION Take 1,000 mg by mouth once d* TRIAMCINOLONE ACETONIDE 0.1 %* Apply 1 application to affect* COMPOUNDED PRESCRIPTION Magnesium 1 daily ASPIRIN 81 MG TABLET,DELAYED * Take 1 tablet by mouth once d* THERAPEUTIC MULTIVITAMIN TABL* Take one(1) tablet daily. FISH OIL 500 MG CAPSULE Take one(1) capsule daily. Problem List As Of Date 07/07/2018 Noted Resolved DEPRESSIVE DISORDER NEC [F32.9] Anxiety state [F41.1] Esophageal reflux [K21.9] 02/12/2012 Irritable bowel syndrome [K58.9] BONE AND CARTILAGE DIS NOS [M89.9, M94.9] More... DIFFUS CYSTIC MASTOPATHY [N60.19] More... Essential hypertension [I10] INVALID FOR* HYPERLIPIDEMIA NEC/NOS [E78.5] INVALID FOR* HYPERGLYCEMIA [R79.89] INVALID FOR*03/05/2013 Urticaria, unspecified [L50.9] INVALID FOR*02/12/2012 Unspecified pruritic disorder [L29.9] INVALID FOR*02/12/2012 Unspecified hypertrophic and atrophic condition*INVALID FOR*08/11/2010 Other chronic dermatitis due to solar radiation*INVALID FOR*08/11/2010 NEVUS RIGHT UPPER BACK//BENIGN VLAD SKIN TRUNK [*INVALID FOR*08/11/2010 DERMATOFIBROMA///BENIGN VLAD SKIN ARM [D23.60] INVALID FOR*08/11/2010 Benign neoplasm of scalp and skin of neck [D23.*INVALID FOR*08/11/2010 Open wound site NOS [T14.8XXA] INVALID FOR*08/11/2010 Myalgia [M79.10] INVALID FOR*03/05/2013 Actinic Keratosis: Premalignant AK: R cheek fa*INVALID FOR* Inflamed Seborrheic Keratoses [L82.0] INVALID FOR*02/12/2012 Cutaneous skin tags: base neck and left axilla *INVALID FOR*02/12/2012 Intradermal nevus [D23.9] INVALID FOR*02/12/2012 Melanocytic nevi of trunk [D22.5] INVALID FOR*03/05/2013 Melanocytic nevus of upper extremity [D22.60] INVALID FOR*03/05/2013 Other seborrheic keratosis [L82.1] INVALID FOR*02/12/2012 Solar lentigines [L81.4] INVALID FOR*02/12/2012 Actinic skin damage [L57.8] INVALID FOR*02/12/2012 Pain in limb [M79.609] INVALID FOR*03/05/2013 Benign neoplasm of rectum and anal canal [D12.8*INVALID FOR* Pineal gland, 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] INVALID FOR* Pruritus [L29.9] INVALID FOR* Winter itch [L29.8] INVALID FOR* Xerosis cutis [L85.3] INVALID FOR* 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] INVALID FOR* Other seborrheic keratosis [L82.1] INVALID FOR* Melanocytic nevi of trunk [D22.5] INVALID FOR* Polo angioma [D18.01] INVALID FOR* Telangiectasia [I78.1] INVALID FOR* Solar lentigo [L81.4] INVALID FOR* Actinic skin damage [L57.8] INVALID FOR* Syncope [R55] INVALID FOR* Abnormal tilt table test [R94.09] INVALID FOR* Hypercholesterolemia [E78.00] INVALID FOR* Hypertension [I10] INVALID FOR*07/12/2016 Acute appendicitis with localized peritonitis [*INVALID FOR* SVT (supraventricular tachycardia) (HCC) [I47.1]INVALID FOR* Impaired fasting blood sugar [R73.01] Anxiety state, unspecified [F41.1] Sweating abnormality [L74.9] INVALID FOR* Overweight (BMI 25.0-29.9) [E66.3] INVALID FOR* Arthritis, multiple joint involvement [M12.9] INVALID FOR* Gastroesophageal reflux disease [K21.9] INVALID FOR* Anxiety [F41.9] INVALID FOR* Elevated TSH [R79.89] INVALID FOR* Dysthymia [F34.1] INVALID FOR* Encounter Status:Closed by EPIC, PRODUSER on 07/22/18 ECHOCARDIOGRAM COMPLETE Observed: 06/24/2018 Status: F Source: [place] 3:39 PM [facility] REPOSITORY [facility] Cardiovascular Services [address] [place] [address] Echo Complete 06/24/18 0848 MR#: [id number] Acct: [id number] Name: CHICHI TEJEDA Rep #: [id number] : 1940 77 From: Vince Santamaria MD Attending Dr: Neville Giles MD Status: REG CLI Ordering Dr: Neville Giles MD Date: 06/24/18 Location: [facility] Sex: F C Admitted: Reason For Study: SYNCOPE Procedure This was a 2D Doppler, Color Flow transthoracic echocardiogram. Exam performed in department. Left Ventricle Normal size and thickness. The estimated ejection fraction is 65 %. Stage 1 diastolic dysfunction. No regional wall motion abnormalities noted. Right Ventricle Normal size and thickness. Normal systolic function. Atria Normal left atrium. Normal right atrium. Normal atrial septum. Mitral Valve The mitral valve is structurally normal. No prolapse or stenosis seen. Mild (1+) mitral valve insufficiency. Tricuspid Valve Normal tricuspid valve. Trivial tricuspid valve insufficiency. Right ventricular systolic pressure estimated to be 35 mmHg. Aortic Valve Trisinus/trileaflet aortic valve. Aortic sclerosis, no stenosis. Trivial aortic valve insufficiency. Pulmonic Valve Normal pulmonic valve. Great Vessels Normal aortic root. Normal arch. Normal inferior vena cava. Inferior vena cava collapse with sniff. Pericardium/Pleural No pericardial effusion. MMode/2D Measurements AND Calculations LVIDd: 3.7 cm IVSd: 1.0 cm Ao root diam: 3.1 cm LVIDs: 2.7 cm LVPWd: 0.88 cm RVDd: 3.4 cm FS: 28.6 % LAV(MOD-bp): 39.3 ml LVAd ap4: 28.1 cm2 SV(MOD-sp4): 48.3 ml LAV(MOD-bp) Indexed: 23.5 ml/m2 EDV(MOD-sp4): 81.9 ml LAV(MOD-sp2): 35.6 ml EDV(sp4-el): 87.1 ml LAV(MOD-sp4): 43.3 ml LVAs ap4: 16.2 cm2 ESV(MOD-sp4): 33.6 ml ESV(sp4-el): 35.2 ml EF(MOD-sp4): 59.0 % EF(sp4-el): 59.6 % SV(sp4-el): 51.9 ml LA A4 area: 16.8 cm2 LA dimension(2D): 3.2 cm RA A4 area: 13.7 cm2 Time Measurements MV dec time: 0.42 sec Doppler Measurements AND Calculations MV E max mick: 53.4 cm/sec Lat Peak E' Mick: 8.5 cm/sec Med Peak E' Mick: 6.0 cm/sec MV A max mick: 87.7 cm/sec E/E' lat: 6.3 E/E' med: 8.9 MV E/A: 0.61 Ao V2 max: 155.8 cm/sec AI max mick: 273.0 cm/sec LV V1 max: 106.2 cm/sec Ao max P.7 mmHg AI max P.8 mmHg LV V1 max P.5 mmHg AI dec slope: 183.4 cm/sec2 AI P1/2t: 436.0 msec TR max mick: 266.4 cm/sec TR max P.4 mmHg Interpretation Summary The estimated ejection fraction is 65 %. Stage 1 diastolic dysfunction. Mild (1+) mitral valve insufficiency. Trivial tricuspid valve insufficiency. Right ventricular systolic pressure estimated to be 35 mmHg. Trivial aortic valve insufficiency. Compared to echo report dated 07/29/2012, LV function has remained the same, but RVSP has increased from 19 to 35 mm Hg. Ordering Physician: Neville Giles Referring Physician: RODGER ALAN Performed By: Anna Carr, ROMA, RVT 06/24/18 1538 Date Vince Santamaria MD CC: Rodger Alan, DO; Neville Giles MD Date Dictated: 06/24/18 0848 Date Transcribed: 06/24/181537 Consulting Sme: Signed CARDIOLOGY VISIT Observed: 06/12/2018 Status: F Source: [place] REPORT 7:17 PM [facility] REPOSITORY [facility] [address] [place] [address] OFFICE VISIT Date of Service: 06/12/18 MR#: [id number] Acct: [id number] Name: CHICHI TEJEDA Rep #: [id number] : 1940 Provider: Neville Giles MD Age/Sex: 77/F [place] [facility] [place]: Signed HPI HPI Details: CHICHI TEJEDA, is a 77 F who presents to the office today for outpatient cardiovascular consultation based on concerns of hypotension superimposed upon a history of vasovagal mediated near syncope/syncope, and a history of potential SVT. She has undergone noninvasive evaluation in the past. It appears in July 2012 she had a transthoracic echocardiogram performed. Her left ventricle was normal with an LVEF of 65% with mild left atrial enlargement with mild MR/TR and trivial NM. Her estimated RV systolic pressure was 19 mmHg. Based upon her PCP medical records available for review it appears she had a tilt table study performed in July 2014 through the [facility] system. This was considered positive. She does not recall having any other cardiovascular evaluation recently. She states she may have had a remote exercise tolerance test in the past. She has never undergone diagnostic cardiac catheterization. She states she has been diagnosed with sensations of rapid heart rates but no definitive diagnosis. Her outpatient medical record states she has a history of SVT. There is no collaborating cardiac rhythm strips, etc. available for review. She states her main concern is that she has had, since her knee surgery, episodes where she has symptoms as she did in the past when she had her tilt table study performed where she can become somewhat warm and/or flushed, lightheaded, does not feel well, and nearly or can lose consciousness. She admits that she does not consume a lot of fluids. She does not wear support stockings. She has been on a beta-torie. At the same time she brings with her her blood pressures which demonstrate she is otherwise hypertensive. Her blood pressures appear to remain elevated throughout the daytime. She states that she was placed on verapamil therapy prior to her surgery. She believes she tolerated it well without any adverse events. However she was then told to discontinue it. It appears based on her past records she is also been on amlodipine in the past. She states there was concern as to whether she developed itching with it. It was stopped. She does not recall any other issues. She did have an ECG in the office today. She was in sinus rhythm/sinus bradycardia with a leftward axis with poor R wave progression with an anterior OR pattern of indeterminate age cannot be excluded as well as a possible inferior OR pattern of indeterminate age. Intake Vital Signs06/12/18 Body Mass Index (BMI) 31.6 06/12/18 Blood Pressure 116/68 06/12/18 Blood Pressure Location Lt brachial 06/12/18 Blood Pressure Position Standing Intake Visit Reasons: High BP/Ref. Dr. Arenas Allergies bupropion [From Wellbutrin] Allergy (Severe, Verified 06/12/18 15:45) Hives atorvastatin calcium [From Lipitor] Allergy (Verified 06/12/18 15:45) Pain in joints erythromycin base [Erythromycin Base] Allergy (Verified 06/12/18 15:45) Upset Stomach rosuvastatin calcium [From Crestor] Allergy (Verified 06/12/18 15:45) Pain in joints spironolactone Adverse Reaction (Severe, Verified 06/12/18 15:45) Diarrhea Zntggrk-Xcc-Otw Reductase Inhibitor Adverse Reaction (Severe, Verified 06/12/18 15:45) myalgias lisinopril Adverse Reaction (Intermediate, Verified 06/12/18 15:45) Other amlodipine [From Norvasc] Adverse Reaction (Verified 06/12/18 15:45) Unknown meloxicam [From Mobic] Adverse Reaction (Verified 06/12/18 15:45) cough Medications Cholecalciferol (Vitamin D3) [D3-2000] 1,000 unit PO DAILY 03/11/14 [History Confirmed 06/12/18] Multivit-Min/FA/Lycopene/Lut [Centrum Silver Tablet] 1 ea PO DAILY 03/11/14 [History Confirmed 06/12/18] L.acidoph,Paracasei, B.lactis [Probiotic] 1 ea PO DAILY 05/19/18 [History Confirmed 06/12/18] [place]-3 Fatty Acids/Fish Oil [[place] 3 1,000 mg Softgel] 1 ea PO QHS 05/19/18 [History Confirmed 06/12/18] Acetaminophen [Tylenol] 1,000 mg PO Q8 #90 tab 05/29/18 [Rx Confirmed 06/12/18] Celecoxib [Celebrex] 200 mg PO BID #30 cap 05/29/18 [Rx Confirmed 06/12/18] aspirin 81 mg tablet,delayed release 81 mg PO DAILY 06/11/18 [History Confirmed 06/12/18] losartan 50 mg tablet 50 mg PO BID tab 06/11/18 [History Confirmed 06/12/18] amlodipine 2.5 mg tablet 2.5 mg PO DAILY #30 tab 06/12/18 [Rx Confirmed 06/12/18] escitalopram 20 mg tablet 20 mg PO DAILY tab 06/12/18 [History Confirmed 06/12/18] lorazepam 0.5 mg tablet 0.5 mg PO TID PRN tab 06/12/18 [History Confirmed 06/12/18] metoprolol tartrate 50 mg tablet 50 mg PO BID tab 06/12/18 [History Confirmed 06/12/18] [facility] Medical History SVT (supraventricular tachycardia) (Acute) Essential hypertension (Chronic) Dyslipidemia (Chronic) BPPV (benign paroxysmal positional vertigo) (Chronic) Neurogenic syncope (Acute) GERD (gastroesophageal reflux disease) (Chronic) IBS (irritable bowel syndrome) (Chronic) Surgical History History of appendectomy (Resolved) History of arthroscopy of left knee (Resolved) History of cholecystectomy (Resolved) Status post left knee replacement (Resolved 05/2018) Family History Mother Hypertension Heart disease Father Heart disease Alzheimers disease Social History Smoking Status: Former smoker alcohol intake: current details: occasional ROS Const Const: Negative for fatigue, weakness, weight gain, weight loss, frequent falls or excessive sweating Eyes Eyes: Negative for change in vision, blurry vision or transient loss of vision ENT ENT: Positive for dizziness (whenever) and balance problems (ambulates with cane S/P knee replacement) Cardio Chest Pain: No Palpitations: No Edema: None Muscle aches with walking: None Resp Respiratory: Negative for SOB with activity or SOB at rest GI GI: Negative vomiting or vomiting blood/hematemesis : Negative for hematuria Musc Musc: Positive for balance problems (ambulates with cane S/P knee replacement) and joint pain (S/P knee replacement); negative for muscle aches/ myalgia or muscle weakness Skin Skin: Negative non-healing lesions or rash Neuro Neuro: Positive for dizziness (whenever) and lightheadedness (whenever); negative for weakness, blurry vision, frequent falls or orthostatic symptoms Elliot Hematologic/Lymphatic: Negative for easy bleeding Endo Endo: Negative for fatigue or excessive sweating Psych Psych: Negative for anxiety or depression Allergy Allergy/Immunology: Negative for hives, Negative for rash Cardiology Exam Const Appearance: cooperative, healthy appearing, comfortable, no acute distress, well developed, well groomed and other (walks with a cane) Nutritional Appearance: average body habitus Orientation: alert, awake and oriented x3 Head Head: normal to inspection, normocephalic and atraumatic Ears: hearing grossly normal bilaterally Nose: external nose normal Face and Sinus: face symmetric Mouth: oral mucosae normal Teeth and gingiva: fair dentition Eyes Eyelids: eyelids normal Conjunctivae: conjunctivae normal Pupils: PERRL EOM: EOM intact bilaterally Neck Neck: normal visual inspection and full ROM Carotids: normal carotid upstroke Chest Chest inspection: normal inspection of the chest, symmetric chest movement and normal respiratory effort Auscultation: Bilateral: Clear to Auscultation Cardio Palpation: normal PMI Rate: regular rate Rhythm: regular rhythm Heart sounds: S1 normal and S2 normal GI GI: normal to inspection, bowel sounds present and soft Neuro General: alert, awake, oriented x3 and moves all extremities Skin Skin: no rashes or lesions noted Extremities Pulses: Normal: Right Radial Pulse, Left Radial Pulse Lower Extremity Edema: None: Bilateral Psych Psychological: normal affect Assessment AND Plan 1. Vasovagal syncope R55 Plan She does have a history of underlying vasovagal mediated near syncope/syncope. Her recent symptoms appear compatible with that. Her graph she was encouraged to continue volume support. She should consider support stockings as she is able with respect to her knee surgery. Orders Orders: 2. SVT (supraventricular tachycardia) I47.1 Plan It is unclear whether she truly has a history of SVT. However if she has recurrent symptoms of her palpitations and a rapid heart rate sensations she may need further evaluation. This would include some form of outpatient ambulatory monitor to try and capture her symptoms with her rhythm Orders Orders: 3. Essential hypertension I10 Plan She does have a history of hypertension. This is somewhat challenging to control especially noting her recurrent episodes of being vasovagal and/or at times having potentially some positional orthostatic changes. At the present time as she needs to increase her volume status based upon her vasovagal history it appears reasonable to remain away from diuretic therapy. She is already on an ARB. She is also on a beta-torie. It would not be unreasonable to consider a calcium channel antagonist potentially such as amlodipine if she truly does not have any obvious reaction to it. She states she is not certain that her previous itching was related to the medication. However she states the medication was stopped. She would be willing to retry this medication to see whether or not she has any recurrent adverse events. Thus she will be placed on amlodipine at 2.5 mg a day. Hopefully this will help with her blood pressure control and not worsen any other concerns with respect to her becoming hypotensive and symptomatic Orders Orders: 4. Dyslipidemia E78.5 Plan She states that she has been told she may have elevated lipids. She states she is intolerant to lipid-lowering medications. She has tried at least 2 different statins. Plan Detail Other Medications New: Changed: Discontinued: Additional Comments The above was discussed with the patient with her present. She was agreeable to this approach Thank you for allowing me to participate in the care of your patient. Please don't hesitate to call if any issues arise. This note was generated using a voice recognition system and there may be incorrect words, spelling or punctuation that were not noted when reviewing the office note prior to saving. Follow Up 3 Months (PFM) Coding Level of Care Code Off vis,new,level 4 Diagnoses Vasovagal syncope R55 Syncope type: vasovagal syncope SVT (supraventricular tachycardia) I47.1 Essential hypertension I10 Dyslipidemia E78.5 Coding Level of Care Code Off vis,new,level 4 Diagnoses Vasovagal syncope R55 Syncope type: vasovagal syncope SVT (supraventricular tachycardia) I47.1 Essential hypertension I10 Dyslipidemia E78.5 06/12/18 191 <Electronically signed by Neville Giles MD> Date Neville Giles MD Cosigner Signature: Date (if applicable) CC: Rodger Alan DO 12 LEAD EKG PERFORMED Observed: 06/12/2018 Status: F Source: [place] 3:42 PM [facility] REPOSITORY [facility] [address] [place] [address] 12 Lead EKG performed by RADHA 06/12/18 1541 MR#: [id number] Acct: [id number] Name: CHICHI TEJEDA Rep #: [id number] : 1940 77 From: Neville Giles MD Attending Dr: Neville Giles MD Status: DEP AMB Ordering Dr: Neville Giles MD Date: 06/12/18 Location: [facility] Sex: F C Admitted: BMS/12 Lead EKG performed by [facility] ECG Report Interpretation Sinus Bradycardia Leftward axisPoor R wave progressionAnterior OR, age undetermined, cannot be excludedInferior OR, age undeterrmined, cannot be excludedAbnormalElectronically signed on 06/12/2018 at 19:53 by Neville Giles Software Version [id number] 06/12/181955 Date Neville Giles MD CC: Rodger Alan DO Date Dictated: 06/12/181540 Date Transcribed: 06/12/181540 Consulting Sme: PM Signed DISCHARGE INSTRUCTION Observed: 05/29/2018 Status: F Source: [place] 7:50 AM [facility] Medical Records Department [address] [place] [id number] Instructions for Home/Discharge Instructions 05/29/18 0749 MR#: [id number] Acct: [id number] Name: CHICHI TEJEDA Rep #: [id number] : 1940 77 From: Jose Heath MD PCP: Rodger Alan DO Status: ADM IN Discharge Diet: No Restrictions Discharge Activity: May Not Drive May shower in (days): 2 Ice area for (Minutes): 20 - every hour while awake. Weight Bearing Status: Weight bearing as tolerated Elevate: Operative Extremity Additional Activity Instructions:: Wear elastic stockings for 2 weeks after your surgery. Call your doctor if your incision/area has: Continuous Slow Oozing, Sudden Increased Bleeding, Increased Pain/ Swelling, Increased Redness, Foul Smelling Discharge Call your doctor if you observe: Fever of 101 or Higher, Coldness, Increased Pain, Numbness or Tingling, Change in Color, Calf discomfort, Uncontrolled pain Remove Dressing in (days):: 06-03-2018 Additional Dressing/Incision Instructions:: If incision is clean dry and intact may leave the wound open to air and continue showering. If there is continued drainage continue daily dry dressing changes and keep incision clean dry and intact until there is no drainage. Allergies/Adverse Reactions: Allergies atorvastatin calcium [From Lipitor] Allergy (Verified 05/19/18 14:08) Pain in joints erythromycin base [Erythromycin Base] Allergy (Verified 05/19/18 14:01) Upset Stomach rosuvastatin calcium [From Crestor] Allergy (Verified 05/19/18 14:01) Pain in joints amlodipine [From Norvasc] Adverse Reaction (Verified 05/19/18 14:01) Unknown lisinopril Adverse Reaction (Verified 05/19/18 14:01) Other COUGH meloxicam [From Mobic] Adverse Reaction (Verified 05/19/18 14:01) cough Medications to take at Discharge Cholecalciferol (Vitamin D3) [D3-2000] 1,000 unit PO DAILY 03/11/14 Losartan Potassium [Cozaar] 50 mg PO BID 03/11/14 Multivit-Min/FA/Lycopene/Lut [Centrum Silver Tablet] 1 each PO DAILY 03/11/14 Escitalopram Oxalate [Lexapro] 30 mg PO DAILY 05/19/18 L.acidoph,Paracasei, B.lactis [Probiotic] 1 each PO DAILY 05/19/18 Metoprolol Tartrate [Lopressor (beta torie)] 75 mg PO BID 05/19/18 [place]-3 Fatty Acids/Fish Oil [[place] 3 1,000 mg Softgel] 1 each PO QHS 05/19/18 Verapamil HCl [Verapamil ER] 120 mg PO QHS 05/28/18 Acetaminophen [Tylenol] 1,000 mg PO Q8 #90 tab 05/29/18 Aspirin [Aspirin, Baby] 81 mg PO BIDCM #60 tab.chew 05/29/18 Celecoxib [Celebrex] 200 mg PO BID #30 cap 05/29/18 Ensure Enlive 120 ml PO 4X/DAY liquid 05/29/18 Famotidine [Pepcid] 20 mg PO DAILY #30 tab 05/29/18 Oxycodone [Oxyir] 5 - 10 mg PO Q4H PRN PRN 7 Days #60 tab 05/29/18 Senna/Docusate Sodium [Senokot-S] 2 tab PO BID #30 tab 05/29/18 The following prescriptions were given: Oxycodone [Oxyir] 5 - 10 mg PO Q4H PRN PRN 7 Days #60 tab PRN Reason: Mod-Severe Pain (-04/16) Acetaminophen [Tylenol] 1,000 mg PO Q8 #90 tab Famotidine [Pepcid] 20 mg PO DAILY #30 tab Aspirin [Aspirin, Baby] 81 mg PO BIDCM #60 tab.chew Celecoxib [Celebrex] 200 mg PO BID #30 cap Senna/Docusate Sodium [Senokot-S] 2 tab PO BID #30 tab Primary Care Physician: Rodger Arenas DO [Primary Care Provider] - Test Results: Test results from this visit will be discussed in further detail at your follow-up appointment, if applicable. Please Follow Up With: Wesley Jensen PA-C - 1205/29/18 0750 <Electronically signed by Jose Heath MD> Date Jose Heath MD CC: Savannah Clay MD; Rodger Alan DO CBC-COMPLETE BLOOD CNT Collected: 05/29/2018 Status: F Source: [place] NO DIFF 6:09 AM [facility] REPOSITORY TYPE CODE TESTS RESULT OUT OF RANGE REFERENCE UNITS LAB L100.1000 4.4-11.0 K/mm3 High WBC 12.4 LAB L100.1200 4.2-5.4 M/mm3 Low RBC 3.63 LAB L100.1300 12.0-15.0 g/dl Low HGB 11.2 LAB L100.1400 37-47 % Low HCT 33.8 LAB L100.1500 81-99 fL Normal MCV 93.1 LAB L100.1600 27.0-32.0 pg Normal MCH 30.9 LAB L100.1700 32-36 g/gl Normal MCHC 33.1 LAB L100.1810 11.6-14.6 % Normal RDW CV 13.1 LAB L100.1820 35.1-43.9 fl High RDW SD 44.0 LAB L100.1900 150-450 K/mm3 Low PLT 145 LAB L100.2000 6.2-12.0 fl Normal MPV 11.2 Performed By: #### L100.0500 #### [facility] [address] [place], [place], [address] BASIC METABOLIC Collected: 05/29/2018 Status: F Source: [place] PROFILE (BMP) 6:09 AM [facility] REPOSITORY TYPE CODE TESTS RESULT OUT OF RANGE REFERENCE UNITS LAB L501.0100 74-106 mg/dL High GLU 119 Result Comment: Fasting Glucose result from 100 to 125 mg/dL suggests IMPAIRED HOMEOSTASIS per A.D.A. criteria. Please note revised GLUCOSE reference range effective 2017. LAB L501.1000 7-18 mg/dL Normal BUN 16 LAB L501.1100 0.55-1.02 mg/dL Normal CREAT,SERUM 0.82 Result Comment: The validity of the calculated GFR AND GFRAA in patients over 70 years has not been determined. Clinical correlation is essential. LAB L501.1110 >60 mL/min Normal EST GFR 72 Result Comment: Non- GFR Calc LAB L501.1115 >60 mL/min Normal EST GFR - AA 87 Result Comment: GFR Calc LAB L501.1255 ml/min Normal Estimated CRCL 44.04 LAB L501.1300 10-20 RATIO Normal BUN/CRE 19.4 LAB L501.2200 8.5-10 mg/dL Normal .1 CA 8.8 LAB L501.5300 136-14 mmol/L Normal 5 NA 140 LAB L501.5600 3.5-5. mmol/L Normal 1 K 4.5 LAB L501.5900 98-107 mmol/L Normal CL 106 LAB L501.6100 21.0-3 mmol/L Normal 2.0 CO2 25.0 LAB L501.6200 5-15 Normal GAP 9 Performed By: #### L500.2500 #### [facility] [address] [place], [address] OPERATIVE REPORT Observed: 05/28/2018 Status: F Source: [place] 9:25 AM [facility] REPOSITORY [facility] Medical Records Department [address] [place] [address] Operative Report 05/28/18 0910 MR#: [id number] Acct: [id number] Name: CHICHI TEJEDA Rep #: [id number] : 1940 77 From: Jose Heath MD PCP: Rodger Alan DO Status: ADM IN Y [id number] Report of Operation Date of Procedure: 05/28/18 Pre-Operative Diagnosis: Left knee primary osteoarthritis Post-Operative Diagnosis: Left knee primary osteoarthritis Surgery/Procedure Performed:: Left total knee replacement Description of Surgical Findings:: Stable knee with good patella tracking roller cleaner: Janna Sparrow Type of Anesthesia:: Spinal Anesthesiologist: David Patiño Special Medications: 2 g Ancef, 1 g TXA at incision, 1 g TXA closure, 10 mg Decadron, joint cocktail (5 mg Duramorph, 30 mL of 0.5% Ropivicaine, 1000 units of epinephrine, 30 mg of Toradol) Specimen's removed: Bony cuts Estimated Blood Loss (mL): 50 Fluids Replaced: 1200 ML crystalloid Description of Procedure: Implants used: 1. Abeba size 3 press-fit triathlon cruciate retaining distal femoral component 2. [place] size 4 press-fit tibial baseplate 3. [place] X3 9 mm CS polyethylene 4. [place] X3 29 mm asymmetric patella Brief history operative indications: 77-year-old f with history of left knee osteoarthritis with radiographic findings with loss of joint space, osteophyte formation and subchondral sclerosis. Failed conservative measures as mentioned in the H AND P. Discussion of total knee arthroplasty as well as risk and benefits were discussed the patient including but not limited to blood loss, DVTs, PEs, neurovascular damage, general risk of anesthesia including loss of life, and stiffness or instability were discussed with patient. Patient demonstrated understanding and was able to sign informed consent. Procedure: On the date of procedure patient's left lower extremity was marked in the preoperative area. The patient was then taken back to the operating room where the patient was placed on the table in the supine position. All bony prominences were identified a well-padded. Anesthesia assumed control of the C-spine and airway and remained controlled throughout the remainder of the procedure. A tourniquet was placed on the left upper thigh and the leg was prepped in a sterile fashion. The surgeon then scrubbed at this time .Upon reentering the room left lower extremity was draped in a standard orthopedic fashion. A timeout was then called and everyone agreed upon the side, the site, the procedure to be performed, patient's identity and antibiotics given. Esmarch bandage was used to exsanguinate the extremity and the tourniquet was placed up to 250 mmHg with the knee in flexion. A midline skin incision was made and sharp dissection was taken down through skin subcutaneous tissue and fat. The standard medial parapatellar incision was made and the patella was subluxed laterally. The standard deep MCL release was done and the fat pad was resected. Next our attention was directed to the femur. Navigation pins were placed, navigation was registered. The distal femoral cutting block was pinned into place and 9 mm of distal femur resection was completed. The distal femoral cut was verified with navigation. The knee was then placed in deep flexion in the standard [email or web address] sizing guide was used to place the femoral component in 3 external rotation based on the posterior condyles. A size 3 4-in-1 cutting block was selected and pinned into place. The anterior cut was then made and checked for notching. The subsequent anterior chamfer cuts, posterior condylar cuts and posterior chamfer cuts were made while ensuring the MCL and LCL were protected. Our attention was then turned to the tibia where the navigation pins were placed, navigation was registered. SchuylerMEDOPfredy tibial cutting guide was used to make the appropriate tibial cut 90 degrees from the mechanical axis. Navigation was then used to verify the cut. A size 4 tibial base plate was selected. the knee was flexed to 90 degrees and the soft tissues and posterior osteophytes were removed from the joint. 40 cc of the periarticular injection was injected into the posterior medial corner of the joint. The appropriate trials were then placed on the femur and tibia. A trial polyethylene was trialed to ensure proper balancing and stability of the knee. Patella tracking, was then verified and corrected appropriately as needed. The appropriate tibial internal rotation was then marked with a bovie. Our attention was then directed to the patella. The patella was everted and a flat resection was made. The lug holes were drilled and the patella trial was placed. Patellar tracking was checked and deemed appropriate. Once we were happy lug holes were drilled for the femur and trial components were removed. Cement was mixed at this time and the tourniquet was let down the tibia was subluxed and pinned into place and the keel was punched and the canal was reamed. Final components were verified and opened, and cement was mixed in a vacuum. Abeba Simplex cement was used. The wound was copiously irrigated with normal saline. When the cement was ready the press-fit components were impacted into place starting with the tibia, femur and finally the patella cemented into place. The trial poly component was placed and the knee was placed in full extension. All excess cement was removed in the process. Once the cement had cured the tracking, alignment and balance were verified and a size 9 mm polyethylene component was placed. Once the final components were placed the wound was copiously irrigated with normal saline solution and the periarticular injection was given. The wound was closed in a layer nur fashion using #1 vicryl interrupted sutures for the arthrotomy, 2-0 interrupted Vicryl suture for the subcuticular layer and daria for final skin closure. A sterile compressive dressing was then placed. The patient was then awakened from anesthesia, transferred to the [facility] and transferred to the PACU for recovery. Post op plan DVT ppx: ASA 81mg, thigh high compression stockings Follow up: in office in 2 weeks for wound check PT: to start POD #0 at hospital, outpatient PT should be arranged. Grafts/Implants Used: Abeba cruciate retaining press-fit triathlon - Complications None - Admit VTE Documentation VTE Present on Admission: No VTE Mechan Device Prophylaxis: SCD's, Thigh High LAURA Hose VTE Pharm Prophylaxis ordered?: Yes 05/28/18 0925 <Electronically signed by Jose Heath MD> Date Jose Heath MD CC: Rodger Alan DO; Jose Heath MD Signed KNEE 1 OR 2 VIEWS Observed: 05/28/2018 Status: F Source: [place] 9:11 AM [facility] REPOSITORY [facility] Imaging Services [address] [place] [address] Knee 1 or 2 Views MR#: [id number] Acct: [id number] Name: CHICHI TEJEDA Rep #: [id number] : 1940 F 77 From: Oscar Guzman MD PCP: Rodger Alan DO Status: ADM IN Study: Knee 1 or 2 Views Date of Exam: 05/28/18 Exam# [id number] Ordering Dr: Jose Heath MD STUDY: X-RAY - LEFT KNEE REASON FOR EXAM: Female, 77 years old. Postop TECHNIQUE: 2 view(s) of the knee. COMPARISON: None. FINDINGS: Normal visualized distal femur. Normal visualized proximal tibia and fibula. Normal proximal tibiofibular articulation. There is a total knee arthroplasty in anatomic alignment. Normal medial femorotibial compartment. Normal lateral femorotibial compartment. Normal patellofemoral articulation. There is an effusion and gas in the joint. There is subcutaneous emphysema and skin daria anteriorly. There is a posterior splint obscuring detail. RAD/Knee 1 or 2 Views IMPRESSION: Status post total knee arthroplasty Electronically Signed: Oscar Guzman MD at 16:53 EST , Service support , CC: Rodger Alan DO; Jose Heath MD Consulting Sme: Signed PROGRESS Observed: 05/21/2018 Status: COMPLETED Source: [place] 4:26 PM [facility] [place] REPOSITORY HNO ID: [id number] Author: Rodger Arenas Service: (none) Author Type: Physician Type: Progress Notes Filed: 05/21/2018 4:28 PM Note Text: CC: Chichi Tejeda is a 77 year old female who presents to the office for HTN follow up HPI: Ready for upcoming surgery by Orthopedics on knee arthritis for total knee replacement surgery, has had some elevated blood pressure readings, is taking 75 mg Metoprolol in AM and PM and Losartan 50 mg AM and PM. No symptoms, denies CP or dyspnea or dizziness/LH or edema or palpitations or RG. PAST MEDICAL HISTORY Diagnosis Date - Actinic Keratosis: Premalignant AK: R cheek face 03/19/2011 - Anxiety state, unspecified - Benign neoplasm of rectum and anal canal - Degenerative arthritis of knee, bilateral ortho Dr. 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 - L'SCOPE DX W/WO BRUSHINGS/WASHINGS 04/24/1976 Laparoscopy BPS - LAPAROSCOPIC CHOLEYCYSTECTOMY 09/21/1999 Cholecystectomy, lap - LAPAROSCOPY, SURGICAL, APPENDECTOMY 06-23-15 - S KIT KNEE ARTHOSCOPY CARDINAL 11/16/2011 left knee Current Outpatient Prescriptions: metoprolol tartrate, short acting, (LOPRESSOR) 50 mg tablet Take 1.5 tablets by mouth twice daily. escitalopram oxalate (LEXAPRO) 10 mg tablet Take 1 tablet by mouth once daily. Total of 30 mg daily escitalopram oxalate (LEXAPRO) 20 mg tablet Take 1 tablet by mouth once daily. COMPOUNDED PRESCRIPTION Take 1,000 mg by mouth once daily. Vit d 3 1000 - daily triamcinolone acetonide (KENALOG) 0.1 % cream Apply 1 application to affected area three times daily as needed. Apply sparingly to area for rash/itching. losartan (COZAAR) 50 mg tablet Take 1 tablet by mouth twice daily. COMPOUNDED PRESCRIPTION Magnesium 1 daily aspirin, enteric coated (ASPIRIN, ENTERIC COATED) 81 mg EC tablet Take 1 tablet by mouth once daily. therapeutic multivitamin ORAL tablet Take one(1) tablet daily. omega-3 fatty acids(FISH OIL 500 MG CAP) Take one(1) capsule daily. verapamil ER (VERELAN) 120 mg 24 hr capsule Take 1 capsule by mouth daily at bedtime. No current facility-administered medications for this visit. ALLERGIES Allergen Reactions - E-Mycin [Erythromyc* GI Upset - Mobic [Meloxicam] Other: See Comments Acid reflux - Norvasc [Amlodipine* Itching insomnia - Spironolactone Diarrhea - Iqdfmjd-Skp-Fhf Red* Other: See Comments Severe myalgias - Wellbutrin [Bupropi* Hives - Crestor [Rosuvastat* Intolerance Myalgia - Lipitor [Atorvastat* Intolerance Myalgia - Lisinopril Cough Social History Marital status: Spouse name: Savannah Years of education: Number of children: 3 Occupational History Occupation Employer Comment retired [employer] Social History Main Topics Smoking status: Former Smoker Packs/day: 0.00 Years: 5.00 Quit date: 07/08/1999 Smokeless tobacco: Never Used Comment: Quit 1999 2-3 cig per day Alcohol use: Yes Comment: wine occasionallly Drug use: No Sexual activity: No Social History Narrative , Goes by Mariya Enjoys crocheting, quilting ROS: See HPI PE: BP 138/78 Pulse 56 Temp (Src) 96.6 (Left Tympanic) Resp 16 Wt 158 lb (71.7kg) Gen: AANDOX3, NAD, non-toxic appearing HEENT: PERRLA, EOMs intact b/l, nares without drainage, pharynx without erythema, exudate, lesions, or drainage. Uvula midline. Neck: No LAD, no thyromegaly, no meningismus. CV: RRR, no murmur Lungs: CTA b/l, no wheezing Skin: No rashes, lesions, or wounds on exposed skin. ASSESSMENT/PLAN: 1. Essential hypertension - ICD9: 401.9, ICD10: I10 - suboptimal control - Begin Verapamil - Encouraged dietary sodium restriction/DASH diet - Recommended regular aerobic exercise. - Recommend home blood pressure monitoring, to bring results in on next visit - Goal of BP <130/80 - VERAPAMIL ER 120 MG 24 HR CAPSULE,EXTENDED RELEASE Rodger Arenas DO Return if no improvement. Follow up with Rodger Arenas DO. Discussed risks, benefits, alternatives, and potential side effects of medications. Patient/Guardian expressed understanding and agreed with the plan. See patient instructions. Rodger Arenas DO [address] [place] [address] CNOV Observed: 05/21/2018 Status: COMPLETED Source: [place] 1:40 PM [facility] REPOSITORY Office Visit (FAMPWS) CHICHI TEJEDA ([id number]) 1940 F Date Time Provider Department 05/21/18 1:40 PM RODGER ARENAS FAMRejiWS During your visit today, we recorded the following information about you: Temperature Pulse Respiration Blood pressure 96.6 degrees 56/minute 16/minute 138/78 Weight 71.7 kg Rodger Arenas DO 05/21/2018 4:28 PM Signed CC: Chichi Tejeda is a 77 year old female who presents to the office for HTN follow up HPI: Ready for upcoming surgery by Orthopedics on knee arthritis for total knee replacement surgery, has had some elevated blood pressure readings, is taking 75 mg Metoprolol in AM and PM and Losartan 50 mg AM and PM. No symptoms, denies CP or dyspnea or dizziness/LH or edema or palpitations or RG. PAST MEDICAL HISTORY Diagnosis Date - Actinic Keratosis: Premalignant AK: R cheek face 03/19/2011 - Anxiety state, unspecified - Benign neoplasm of rectum and anal canal - Degenerative arthritis of knee, bilateral ortho Dr. 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 - L'SCOPE DX W/WO BRUSHINGS/WASHINGS 04/24/1976 Laparoscopy BPS - LAPAROSCOPIC CHOLEYCYSTECTOMY 09/21/1999 Cholecystectomy, lap - LAPAROSCOPY, SURGICAL, APPENDECTOMY 06-23-15 - S KIT KNEE ARTHOSCOPY CARDINAL 11/16/2011 left knee Current Outpatient Prescriptions: metoprolol tartrate, short acting, (LOPRESSOR) 50 mg tablet Take 1.5 tablets by mouth twice daily. escitalopram oxalate (LEXAPRO) 10 mg tablet Take 1 tablet by mouth once daily. Total of 30 mg daily escitalopram oxalate (LEXAPRO) 20 mg tablet Take 1 tablet by mouth once daily. COMPOUNDED PRESCRIPTION Take 1,000 mg by mouth once daily. Vit d 3 1000 - daily triamcinolone acetonide (KENALOG) 0.1 % cream Apply 1 application to affected area three times daily as needed. Apply sparingly to area for rash/itching. losartan (COZAAR) 50 mg tablet Take 1 tablet by mouth twice daily. COMPOUNDED PRESCRIPTION Magnesium 1 daily aspirin, enteric coated (ASPIRIN, ENTERIC COATED) 81 mg EC tablet Take 1 tablet by mouth once daily. therapeutic multivitamin ORAL tablet Take one(1) tablet daily. omega-3 fatty acids(FISH OIL 500 MG CAP) Take one(1) capsule daily. verapamil ER (VERELAN) 120 mg 24 hr capsule Take 1 capsule by mouth daily at bedtime. No current facility-administered medications for this visit. ALLERGIES Allergen Reactions - E-Mycin [Erythromyc* GI Upset - Mobic [Meloxicam] Other: See Comments Acid reflux - Norvasc [Amlodipine* Itching insomnia - Spironolactone Diarrhea - Tlsdsgp-Igh-Bnm Red* Other: See Comments Severe myalgias - Wellbutrin [Bupropi* Hives - Crestor [Rosuvastat* Intolerance Myalgia - Lipitor [Atorvastat* Intolerance Myalgia - Lisinopril Cough Social History Marital status: Spouse name: Savannah Years of education: Number of children: 3 Occupational History Occupation Employer Comment retired [employer] Social History Main Topics Smoking status: Former Smoker Packs/day: 0.00 Years: 5.00 Quit date: 07/08/1999 Smokeless tobacco: Never Used Comment: Quit 1999 2-3 cig per day Alcohol use: Yes Comment: wine occasionallly Drug use: No Sexual activity: No Social History Narrative , Goes by Mariya Enjoys crocheting, quilting ROS: See HPI PE: BP 138/78 Pulse 56 Temp (Src) 96.6 (Left Tympanic) Resp 16 Wt 158 lb (71.7kg) Gen: AANDOX3, NAD, non-toxic appearing HEENT: PERRLA, EOMs intact b/l, nares without drainage, pharynx without erythema, exudate, lesions, or drainage. Uvula midline. Neck: No LAD, no thyromegaly, no meningismus. CV: RRR, no murmur Lungs: CTA b/l, no wheezing Skin: No rashes, lesions, or wounds on exposed skin. ASSESSMENT/PLAN: 1. Essential hypertension - ICD9: 401.9, ICD10: I10 - suboptimal control - Begin Verapamil - Encouraged dietary sodium restriction/DASH diet - Recommended regular aerobic exercise. - Recommend home blood pressure monitoring, to bring results in on next visit - Goal of BP <130/80 - VERAPAMIL ER 120 MG 24 HR CAPSULE,EXTENDED RELEASE Rodger Arenas DO Return if no improvement. Follow up with Rodger Arenas DO. Discussed risks, benefits, alternatives, and potential side effects of medications. Patient/Guardian expressed understanding and agreed with the plan. See patient instructions. Rodger Arenas DO [address] [place] [address] Referring Provider: RODGER ARENAS [[id number]] Allergies As of Date: 05/21/2018 Noted Allergy Reaction E-MYCIN (ERYTHROMYCIN) 05/04/2005 8 - GI Upset MOBIC (MELOXICAM) 04/24/2016 14 - Other: See Comments Comments: Acid reflux NORVASC (AMLODIPINE BESYLATE) 03/02/2011 9 - Itching Comments: insomnia SPIRONOLACTONE 07/13/2016 6 - Diarrhea [id number] REDUCTASE INHIBIT*09/28/2013 14 - Other: See Comments Comments: Severe myalgias WELLBUTRIN (BUPROPION HCL) 01/13/2018 4 - Hives CRESTOR (ROSUVASTATIN) 09/20/2009 5 - Intolerance Comments: Myalgia LIPITOR (ATORVASTATIN) 09/20/2009 5 - Intolerance Comments: Myalgia LISINOPRIL 02/24/2007 3 - Cough Date Reviewed: 05/21/2018 Reviewed by: Bernadine Ritter LPN - Fully Assessed Reason for Visit: Follow Up [171] Cmt: 6 months Primary Visit Diagnosis:Essential hypertension [I10] Order(s):verapamil ER (VERELAN) 120 mg 24 hr capsuleTake 1 capsule by mouth daily at bedtime.Disp: 90 capsuleRfl: 1 Prescriptions as of 05/21/2018 Sig: METOPROLOL TARTRATE 50 MG TAB* Take 1.5 tablets by mouth twi* ESCITALOPRAM 10 MG TABLET Take 1 tablet by mouth once d* ESCITALOPRAM 20 MG TABLET Take 1 tablet by mouth once d* COMPOUNDED PRESCRIPTION Take 1,000 mg by mouth once d* TRIAMCINOLONE ACETONIDE 0.1 %* Apply 1 application to affect* LOSARTAN 50 MG TABLET Take 1 tablet by mouth twice * COMPOUNDED PRESCRIPTION Magnesium 1 daily ASPIRIN 81 MG TABLET,DELAYED * Take 1 tablet by mouth once d* THERAPEUTIC MULTIVITAMIN TABL* Take one(1) tablet daily. FISH OIL 500 MG CAPSULE Take one(1) capsule daily. VERAPAMIL ER 120 MG 24 HR CAP* Take 1 capsule by mouth daily* Problem List As Of Date 05/21/2018 Noted Resolved DEPRESSIVE DISORDER NEC [F32.9] Anxiety state [F41.1] Esophageal reflux [K21.9] 02/12/2012 Irritable bowel syndrome [K58.9] BONE AND CARTILAGE DIS NOS [M89.9, M94.9] More... DIFFUS CYSTIC MASTOPATHY [N60.19] More... Essential hypertension [I10] INVALID FOR* HYPERLIPIDEMIA NEC/NOS [E78.5] INVALID FOR* HYPERGLYCEMIA [R79.89] INVALID FOR*03/05/2013 Urticaria, unspecified [L50.9] INVALID FOR*02/12/2012 Unspecified pruritic disorder [L29.9] INVALID FOR*02/12/2012 Unspecified hypertrophic and atrophic condition*INVALID FOR*08/11/2010 Other chronic dermatitis due to solar radiation*INVALID FOR*08/11/2010 NEVUS RIGHT UPPER BACK//BENIGN VLAD SKIN TRUNK [*INVALID FOR*08/11/2010 DERMATOFIBROMA///BENIGN VLAD SKIN ARM [D23.60] INVALID FOR*08/11/2010 Benign neoplasm of scalp and skin of neck [D23.*INVALID FOR*08/11/2010 Open wound site NOS [T14.8XXA] INVALID FOR*08/11/2010 Myalgia [M79.10] INVALID FOR*03/05/2013 Actinic Keratosis: Premalignant AK: R cheek fa*INVALID FOR* Inflamed Seborrheic Keratoses [L82.0] INVALID FOR*02/12/2012 Cutaneous skin tags: base neck and left axilla *INVALID FOR*02/12/2012 Intradermal nevus [D23.9] INVALID FOR*02/12/2012 Melanocytic nevi of trunk [D22.5] INVALID FOR*03/05/2013 Melanocytic nevus of upper extremity [D22.60] INVALID FOR*03/05/2013 Other seborrheic keratosis [L82.1] INVALID FOR*02/12/2012 Solar lentigines [L81.4] INVALID FOR*02/12/2012 Actinic skin damage [L57.8] INVALID FOR*02/12/2012 Pain in limb [M79.609] INVALID FOR*03/05/2013 Benign neoplasm of rectum and anal canal [D12.8*INVALID FOR* Pineal gland, 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] INVALID FOR* Pruritus [L29.9] INVALID FOR* Winter itch [L29.8] INVALID FOR* Xerosis cutis [L85.3] INVALID FOR* 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] INVALID FOR* Other seborrheic keratosis [L82.1] INVALID FOR* Melanocytic nevi of trunk [D22.5] INVALID FOR* Polo angioma [D18.01] INVALID FOR* Telangiectasia [I78.1] INVALID FOR* Solar lentigo [L81.4] INVALID FOR* Actinic skin damage [L57.8] INVALID FOR* Syncope [R55] INVALID FOR* Abnormal tilt table test [R94.09] INVALID FOR* Hypercholesterolemia [E78.00] INVALID FOR* Hypertension [I10] INVALID FOR*07/12/2016 Acute appendicitis with localized peritonitis [*INVALID FOR* SVT (supraventricular tachycardia) (HCC) [I47.1]INVALID FOR* Impaired fasting blood sugar [R73.01] Anxiety state, unspecified [F41.1] Sweating abnormality [L74.9] INVALID FOR* Overweight (BMI 25.0-29.9) [E66.3] INVALID FOR* Arthritis, multiple joint involvement [M12.9] INVALID FOR* Gastroesophageal reflux disease [K21.9] INVALID FOR* Anxiety [F41.9] INVALID FOR* Elevated TSH [R79.89] INVALID FOR* Dysthymia [F34.1] INVALID FOR* Prescriptions ordered this encounter Disp Refills Start End VERAPAMIL ER 120 MG 24 HR CAPSULE,EX* 90 c* 1 05/21/2018 Route: ORAL Sig: Take 1 capsule by mouth daily at bedtime. Encounter Status:Closed by RODGER ARENAS DO on 05/21/18 CBC W/DIFF, AUTOMATED Collected: 05/19/2018 Status: F Source: [place] 2:40 PM [facility] REPOSITORY TYPE CODE TESTS RESULT OUT OF RANGE REFERENCE UNITS LAB L100.1000 4.4-11.0 K/mm3 Normal WBC 5.4 LAB L100.1200 4.2-5.4 M/mm3 Normal RBC 4.68 LAB L100.1300 12.0-15.0 g/dl Normal HGB 14.5 LAB L100.1400 37-47 % Normal HCT 43.7 LAB L100.1500 81-99 fL Normal MCV 93.4 LAB L100.1600 27.0-32.0 pg Normal MCH 31.0 LAB L100.1700 32-36 g/gl Normal MCHC 33.2 LAB L100.1810 11.6-14.6 % Normal RDW CV 13.4 LAB L100.1820 35.1-43.9 fl High RDW SD 45.2 LAB L100.1900 150-450 K/mm3 Normal PLT 164 LAB L100.2000 6.2-12.0 fl High MPV 12.3 LAB L100.2100 47-70 % Normal NEUT% 62.9 LAB L100.2200 19-41 % Normal LY% 27.4 LAB L100.2300 0-10 % Normal MONO% 5.2 LAB L100.2400 0-5 % Normal EO% 4.3 LAB L100.2500 0-1 % Normal BASO% 0.2 LAB L100.2550 0.0-0.9 % Normal IM GRAN % 0.000 Result Comment: IG% - Immature Granulocytes (promyelocytes, myelocytes and metamyelocytes) > 1% indicates that a LEFT SHIFT is Present. LAB L100.2620 2.0-7.7 X10 3/uL Normal Absolute Neut 3.4 LAB L100.2720 0.83-4.51 X10 3/ul Normal Absolute Lymph 1.48 Performed By: #### L100.0100 #### [facility] [place], [place], [address] BASIC METABOLIC Collected: 05/19/2018 Status: F Source: [place] PROFILE (BMP) 2:40 PM [facility] REPOSITORY TYPE CODE TESTS RESULT OUT OF RANGE REFERENCE UNITS LAB L501.0100 74-106 mg/dL High GLU 138 Result Comment: Fasting Glucose result greater than or equal to 126 mg/dL suggests DIABETES MELLITUS per A.D.A. criteria. Please note revised GLUCOSE reference range effective 2017. LAB L501.1000 7-18 mg/dL Normal BUN 18 LAB L501.1100 0.55-1.02 mg/dL Normal CREAT,SERUM 0.80 Result Comment: The validity of the calculated GFR AND GFRAA in patients over 70 years has not been determined. Clinical correlation is essential. LAB L501.1110 >60 mL/min Normal EST GFR 74 Result Comment: Non- GFR Calc LAB L501.1115 >60 mL/min Normal EST GFR - AA 90 Result Comment: GFR Calc LAB L501.1255 ml/min Normal Estimated CRCL 45.14 LAB L501.1300 10-20 RATIO High BUN/CRE 22.5 LAB L501.2200 8.5-10 mg/dL Normal .1 CA 8.5 LAB L501.5300 136-14 mmol/L Normal 5 NA 137 LAB L501.5600 3.5-5. mmol/L Normal 1 K 3.9 LAB L501.5900 98-107 mmol/L Normal CL 105 LAB L501.6100 21.0-3 mmol/L Normal 2.0 CO2 25.0 LAB L501.6200 5-15 Normal GAP 7 Performed By: #### L500.2500 #### [facility] [address] [place], [address] Observed: 05/19/2018 Status: F Source: [place] MRSA/SAID SCREEN 2:40 PM [facility] REPOSITORY MRSA/SAID SCRN S. AUREUS S. aureus Negative MRSA MRSA Negative Performed By: #### M100.651 #### [facility] [address] [place], [address] HISTORY AND PHYSICAL Observed: 05/18/2018 Status: F Source: [place] EXAM 4:35 PM [facility] REPOSITORY [facility] Medical Records Department [address] [place] [id number] History and Physical 05/18/18 1634 MR#: [id number] Acct: [id number] Name: CHICHI TEJEDA Rep #: [id number] : 1940 77 From: Wesley Jensen PA-C PCP: Rdoger Alna DO Status: PRE IN Y [place] [facility] [place] Physical DATE OF SURGERY: 05/28/2018 SCHEDULED PROCEDURE: Left Total Knee Arthroplasty HISTORY OF PRESENT ILLNESS: This is a 77-year-old female who has been having ongoing bilateral knee pain for several years. Patient underwent previous Euflexxa injection in February 2018. Patient states she was doing well with regards to her right knee. However she has not seen any significant improvement with her left knee. Patient states her pain is intermittent, dull, aching, and sharp. She has pain going up and down stairs, sitting for extended periods of time, and walking. She has difficult time with activities of daily living including housework, shopping, and leisure activities such as gardening. 10/10 and on average is a 5/10 on the left. Patient does complain of intermittent swelling. She states the pain has become worse over the past several weeks. Pain in the left knee is now constant. Patient has tried rest, she, in general injection on the left with no relief in symptoms. Patient has tried ice and elevation with minimal relief. X-rays on the left knee show xldy-xo-drra arthritis in the medial compartment. Patient has medical history pertinent for hypertension. Patient currently denies any chest pain, shortness of breath, fevers chills, recent infections. Patient does have previous left knee arthroscopy [place] [address] Iliana Kulkarni. We obtaining surgical clearance from patient's primary care physician. After failing conservative measures and discussing all treatment options with Dr. Jose Heath, the patient would like to proceed with a left total knee arthroplasty. REVIEW OF SYSTEMS: ROS: Const: Reports anxiety, but denies anorexia, change in appetite, fever, hard of hearing, vision problems and weight change. CV: Denies chest pain, heart murmur, irregular heartbeat and peripheral vascular disease. Resp: Denies asthma, cough, pneumonia, sleep apnea, SOB, tuberculosis and wheezing. GI: Denies constipation, diarrhea, difficulty swallowing, heartburn, nausea, bloody stools and vomiting. : Urinary: denies incontinence. Musculo: Denies leg swelling, limp, trouble walking and weakness. Skin: Denies Raynaud's, history of shingles and tattoo. Neuro: Reports numbness/tingling but denies ambulatory dysfunction, dizziness and tremor. Psych: Reports anxiety and depression, but denies insomnia, mental illness and stress. Elliot/Lymph: Denies anemia, bleeding/bruising tendency and past transfusion. Reviewed and updated. PAST MEDICAL HISTORY: Advance Care Plan: Other Directive, LIVING WILL Effective Date: 08/11/2015 Other Directive, POA Effective Date: 08/11/2015 PMH: Medical Problems: High Blood Pressure Accidents: None Surgical Hx: Gallbladder - (1996) [facility] Tubal Ligation - (1966) [facility] LT Knee Arthroscopy - (11/16/2011) MSK @ [facility] Appendectomy - (06/2015) Facial SX Anesthesia Complications: None Assistive Devices: Glasses - READING Reviewed, no changes. SOCIAL HISTORY: SH: Marital: .Occupation: Retired.Work Status: Retired.Hand Dominance: Right-handed. Personal Habits: Cigarette Use: Former.Alcohol: Weekly use.Drug Use: Denies Use.Enjoy Exercising: Exercises 1-3 x/month. Reviewed, no changes. VITALS: Ht: 61 Wt: 157lb 8oz Wt k.442 BMI: 29.8 BP: 159/82 Pulse: 56 Resp: 16 T: 96.0 T: 35.6C ALLERGIES: Erythromycin Norvasc Crestor Lisinopril Mobic MEDICATIONS: Aspirin 81 mg 1 po qd, Losartan Potassium 50 mg 1 PO qdaily, Lorazepam 0.5 mg 1 by mouth every day as needed, Escitalopram Oxalate 5 mg/5ml daily, Advil 200 mg 3po qday, Multi Vitamin Daily 1po qday, Vitamin D 2000 Unit 1 by mouth every day PRE-OP EXAM: General appearance:NORMAL Other: Eyes: Conjunctivae and lids: NORMAL Pupils: ERR Ears, Nose, Mouth, and Throat: NORMAL Other: Inspection of lips, teeth and gums: NORMAL Other: Neck: Examination of neck: no masses noted. Respiratory: Assessment of respiratory effort: NORMAL Other: Auscultation of lungs: clear to auscultation no wheezes, rhonchi or rales. Cardiovascular: Auscultation of heart: regular rate and rhythm, no murmurs, gallops or rubs. Exam of carotid arteries: NORMAL Other: Gastrointestinal: Exam of abdomen: soft, nontender, nondistended bowel sounds present. PHYSICAL EXAMINATION: Patient does walk with an antalgic gait. Left knee is cool to touch without erythema. Patient has tenderness to palpation of the medial and lateral joint line of the left knee. Range of motion left knee: Lacks 5 of full extension to 120 of flexion. Stable to varus and valgus stress test. Varus alignment bilaterally. Sensation intact to light touch. Neurovascularly intact. IMAGING STUDIES: X-rays of bilateral knees reveal varus alignment with medial joint space narrowing, subchondral sclerosis, and osteophyte formation consistent with severe medial compartment osteoarthritis bilaterally with evidence of lateral compartment chondrocalcinosis and pseudogout in the left knee. IMPRESSION: 1. Severe left knee osteoarthritis 2. Severe right knee osteoarthritis 3. Hypertension PLAN: Dr. Jose Heath did discuss and review with the patient all treatment options including surgical versus nonsurgical options. Patient does wish to proceed with the above-stated procedure. Potential risks, benefits, and complications of the procedure were discussed in detail including but not limited to , infection, nerve and blood vessel damage, persistent pain, numbness, tingling, paresthesias, blood clot, pulmonary embolism, and requirement for possible further surgery. The patient expressed full understanding and has no further questions for the doctor. Patient does agree to proceed with the above-stated procedure and has signed the surgery consent form. This dictation was created using voice recognition software. Phonetic and/or grammatical errors may exist.. ___ I have re-examined the patient. There are no clinical changes since date of exam. ___ See progress notes for changes. ___ Dictated on admission Date: Time: Signature: 05/18/18 1635 <Electronically signed by Wesley Jensen PA-C> Date Wesley Mack Signature: Date (if applicable) CC: Rodger Alan DO; Wesley ECHEVERRIA Signed PROGRESS Observed: 05/16/2018 Status: COMPLETED Source: [place] 11:39 AM [facility] REPOSITORY O ID: [id number] Author: Rodger Arenas Service: (none) Author Type: Physician Type: Progress Notes Filed: 05/16/2018 11:42 AM Note Text: CC: Chichi Tejeda is a 77 year old female who presents to the office for pre operative clearance HPI: Overall doing well Anxiety symptoms seem to be improved with higher dose of Lexapro, recently started by Tim Jurado. Has been taking Metoprolol 50 mg twice a day and Losartan 50 mg twice a day for HTN, does have hx of SVT and hasn't seen [facility] Dem[facility] Clerk, no CP or palpitations or dyspnea or dizziness/Lh or edema, Is interested in seeing [facility] Demurrage Clerk at some point. EKG without acute changes this past week when seen. Going to be having knee replacement by Dr. Heath at [facility] through [facility] PAST MEDICAL HISTORY Diagnosis Date - Actinic Keratosis: Premalignant AK: R cheek face 03/19/2011 - Anxiety state, unspecified - Benign neoplasm of rectum and anal canal - Degenerative arthritis of knee, bilateral ortho Dr. 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 - L'SCOPE DX W/WO BRUSHINGS/WASHINGS 04/24/1976 Laparoscopy BPS - LAPAROSCOPIC CHOLEYCYSTECTOMY 09/21/1999 Cholecystectomy, lap - LAPAROSCOPY, SURGICAL, APPENDECTOMY 06-23-15 - S KIT KNEE ARTHOSCOPY CARDINAL 11/16/2011 left knee Social History: Social History Substance Use Topics - Smoking status: Former Smoker Years: 5.00 Quit date: 07/08/1999 - Smokeless tobacco: Never Used Comment: Quit 1999 2-3 cig per day - Alcohol use Yes Comment: wine occasionallly FAMILY HISTORY Problem Relation Age of Onset - Hypertension Mother - Lipids Mother - Ischemic Heart Disease Mother - Ischemic Heart Disease Father - Alzheimer's Disease Father Current Outpatient prescriptions: metoprolol tartrate, short acting, (LOPRESSOR) 50 mg tablet Take 1.5 tablets by mouth twice daily. escitalopram oxalate (LEXAPRO) 10 mg tablet Take 1 tablet by mouth once daily. Total of 30 mg daily escitalopram oxalate (LEXAPRO) 20 mg tablet Take 1 tablet by mouth once daily. COMPOUNDED PRESCRIPTION Take 1,000 mg by mouth once daily. Vit d 3 1000 - daily triamcinolone acetonide (KENALOG) 0.1 % cream Apply 1 application to affected area three times daily as needed. Apply sparingly to area for rash/itching. losartan (COZAAR) 50 mg tablet Take 1 tablet by mouth twice daily. COMPOUNDED PRESCRIPTION Magnesium 1 daily aspirin, enteric coated (ASPIRIN, ENTERIC COATED) 81 mg EC tablet Take 1 tablet by mouth once daily. therapeutic multivitamin ORAL tablet Take one(1) tablet daily. omega-3 fatty acids(FISH OIL 500 MG CAP) Take one(1) capsule daily. Allergies: ALLERGIES Allergen Reactions - E-Mycin [Erythromyc* GI Upset - Mobic [Meloxicam] Other: See Comments Acid reflux - Norvasc [Amlodipine* Itching insomnia - Spironolactone Diarrhea - Kdmlokj-Dkr-Lvo Red* Other: See Comments Severe myalgias - Wellbutrin [Bupropi* Hives - Crestor [Rosuvastat* Intolerance Myalgia - Lipitor [Atorvastat* Intolerance Myalgia - Lisinopril Cough ROS: See HPI PE: 05/16/18 1049 05/16/18 1111 BP: 160/90 165/86 Pulse: 60 Resp: 16 Temp: 36.2 ?C (97.2 ?F) TempSrc: Left Tympanic Weight: 71.2 kg (157 lb) Gen: AANDO, NAD, non-toxic appearing, Pleasant, cooperative HEENT: NT/AC, PERRLA, EOMs intact b/l, nares clear and patent b/l, pharynx without erythema, exudate or lesions. Uvula midline. EACs without erythema or debris. TMs pearly gonzalez with intact landmarks b/l. Neck: supple, No cervical LAD, no thyromegaly, no carotid bruits CV: RRR, normal S1 and S2, no murmurs, no gallops, no rubs, Pulses 2+ and symmetric in UE and LE b/l Lungs: normal respiratory effort, CTA b/l, no wheezing or rhonchi or rales Abd: soft, NT, ND, +BS, no hepatosplenomegaly MS: FROM all 4 extremities Neuro: CN II-XII intact b/l, strength 5/5 b/l UE and LE, DTRs 2/4 UE and LE, sensation intact. Skin: warm, dry, intact, No rashes or lesions on exposed skin. ASSESSMENT/PLAN: 1. Pre-op evaluation - ICD9: V72.84, ICD10: Z01.818 (primary diagnosis) - Will be having upcoming knee replacement surgery, increasing dose of Metoprolol as discussed to 75 mg twice a day, continue other medications the same, okay for clearance if bp well controlled - COMP METABOLIC PANEL - CBC 2. Essential hypertension - ICD9: 401.9, ICD10: I10 - Will be having upcoming knee replacement surgery, increasing dose of Metoprolol as discussed to 75 mg twice a day, continue other medications the same, okay for clearance if bp well controlled} - will be getting opinion by [facility] Clerk regarding changing medications - METOPROLOL TARTRATE 50 MG TABLET - CONSULT TO CARDIOLOGY 3. SVT (supraventricular tachycardia) (HCC) - ICD9: 427.89, ICD10: I47.1 - hx of, none currently - Will be having upcoming knee replacement surgery, increasing dose of Metoprolol as discussed to 75 mg twice a day, continue other medications the same, okay for clearance if bp well controlled} - will be getting opinion by [facility] Clerk regarding changing medications - METOPROLOL TARTRATE 50 MG TABLET - CONSULT TO CARDIOLOGY Rodger Arenas DO To ER if develops chest pain, shortness of breath, or severe worsening of symptoms. Discussed risks, benefits, alternatives, and potential side effects of medications. Patient expressed understanding and agreed with the plan. Rodger Arenas DO [address] [place] [address] CNOV Observed: 05/16/2018 Status: COMPLETED Source: [place] 11:00 AM [facility] REPOSITORY [facility] CHICHI TEJEDA ([id number]) 1940 F Date Time Provider Department 05/16/18 11:00 AM RODGER ARENAS During your visit today, we recorded the following information about you: Temperature Pulse Respiration Blood pressure 97.2 degrees 60/minute 16/minute 165/86 Weight 71.2 kg Rodger Arenas, 05/16/2018 11:[address] [facility] office Rodger Arenas, DO 05/16/2018 11:42 AM Signed CC: Chichi Tejeda is a 77 year old female who presents to the office for pre operative clearance HPI: Overall doing well Anxiety symptoms seem to be improved with higher dose of Lexapro, recently started by Tim Jurado. Has been taking Metoprolol 50 mg twice a day and Losartan 50 mg twice a day for HTN, does have hx of SVT and hasn't seen [facility] Demur[facility] Clerk, no CP or palpitations or dyspnea or dizziness/Lh or edema, Is interested in seeing [facility] Demurrage Clerk at some point. EKG without acute changes this past week when seen. Going to be having knee replacement by Dr. Heath at [facility] through [facility] PAST MEDICAL HISTORY Diagnosis Date - Actinic Keratosis: Premalignant AK: R cheek face 03/19/2011 - Anxiety state, unspecified - Benign neoplasm of rectum and anal canal - Degenerative arthritis of knee, bilateral ortho Dr. 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 - L'SCOPE DX W/WO BRUSHINGS/WASHINGS 04/24/1976 Laparoscopy BPS - LAPAROSCOPIC CHOLEYCYSTECTOMY 09/21/1999 Cholecystectomy, lap - LAPAROSCOPY, SURGICAL, APPENDECTOMY 06-23-15 - S KIT KNEE ARTHOSCOPY CARDINAL 11/16/2011 left knee Social History: Social History Substance Use Topics - Smoking status: Former Smoker Years: 5.00 Quit date: 07/08/1999 - Smokeless tobacco: Never Used Comment: Quit 1999 2-3 cig per day - Alcohol use Yes Comment: wine occasionallly FAMILY HISTORY Problem Relation Age of Onset - Hypertension Mother - Lipids Mother - Ischemic Heart Disease Mother - Ischemic Heart Disease Father - Alzheimer's Disease Father Current Outpatient prescriptions: metoprolol tartrate, short acting, (LOPRESSOR) 50 mg tablet Take 1.5 tablets by mouth twice daily. escitalopram oxalate (LEXAPRO) 10 mg tablet Take 1 tablet by mouth once daily. Total of 30 mg daily escitalopram oxalate (LEXAPRO) 20 mg tablet Take 1 tablet by mouth once daily. COMPOUNDED PRESCRIPTION Take 1,000 mg by mouth once daily. Vit d 3 1000 - daily triamcinolone acetonide (KENALOG) 0.1 % cream Apply 1 application to affected area three times daily as needed. Apply sparingly to area for rash/itching. losartan (COZAAR) 50 mg tablet Take 1 tablet by mouth twice daily. COMPOUNDED PRESCRIPTION Magnesium 1 daily aspirin, enteric coated (ASPIRIN, ENTERIC COATED) 81 mg EC tablet Take 1 tablet by mouth once daily. therapeutic multivitamin ORAL tablet Take one(1) tablet daily. omega-3 fatty acids(FISH OIL 500 MG CAP) Take one(1) capsule daily. Allergies: ALLERGIES Allergen Reactions - E-Mycin [Erythromyc* GI Upset - Mobic [Meloxicam] Other: See Comments Acid reflux - Norvasc [Amlodipine* Itching insomnia - Spironolactone Diarrhea - Mxtwjzc-Zsa-Ypd Red* Other: See Comments Severe myalgias - Wellbutrin [Bupropi* Hives - Crestor [Rosuvastat* Intolerance Myalgia - Lipitor [Atorvastat* Intolerance Myalgia - Lisinopril Cough ROS: See HPI PE: 05/16/18 1049 05/16/18 1111 BP: 160/90 165/86 Pulse: 60 Resp: 16 Temp: 36.2 ?C (97.2 ?F) TempSrc: Left Tympanic Weight: 71.2 kg (157 lb) Gen: AANDO, NAD, non-toxic appearing, Pleasant, cooperative HEENT: NT/AC, PERRLA, EOMs intact b/l, nares clear and patent b/l, pharynx without erythema, exudate or lesions. Uvula midline. EACs without erythema or debris. TMs pearly gonzalez with intact landmarks b/l. Neck: supple, No cervical LAD, no thyromegaly, no carotid bruits CV: RRR, normal S1 and S2, no murmurs, no gallops, no rubs, Pulses 2+ and symmetric in UE and LE b/l Lungs: normal respiratory effort, CTA b/l, no wheezing or rhonchi or rales Abd: soft, NT, ND, +BS, no hepatosplenomegaly MS: FROM all 4 extremities Neuro: CN II-XII intact b/l, strength 5/5 b/l UE and LE, DTRs 2/4 UE and LE, sensation intact. Skin: warm, dry, intact, No rashes or lesions on exposed skin. ASSESSMENT/PLAN: 1. Pre-op evaluation - ICD9: V72.84, ICD10: Z01.818 (primary diagnosis) - Will be having upcoming knee replacement surgery, increasing dose of Metoprolol as discussed to 75 mg twice a day, continue other medications the same, okay for clearance if bp well controlled - COMP METABOLIC PANEL - CBC 2. Essential hypertension - ICD9: 401.9, ICD10: I10 - Will be having upcoming knee replacement surgery, increasing dose of Metoprolol as discussed to 75 mg twice a day, continue other medications the same, okay for clearance if bp well controlled} - will be getting opinion by [employer] Clerk regarding changing medications - METOPROLOL TARTRATE 50 MG TABLET - CONSULT TO CARDIOLOGY 3. SVT (supraventricular tachycardia) (HCC) - ICD9: 427.89, ICD10: I47.1 - hx of, none currently - Will be having upcoming knee replacement surgery, increasing dose of Metoprolol as discussed to 75 mg twice a day, continue other medications the same, okay for clearance if bp well controlled} - will be getting opinion by [employer] Clerk regarding changing medications - METOPROLOL TARTRATE 50 MG TABLET - CONSULT TO CARDIOLOGY Rodger Arenas DO To ER if develops chest pain, shortness of breath, or severe worsening of symptoms. Discussed risks, benefits, alternatives, and potential side effects of medications. Patient expressed understanding and agreed with the plan. Rodger Arenas DO [address] [place] [address] Referring Provider: SELF [[id number]] Allergies As of Date: 05/16/2018 Noted Allergy Reaction E-MYCIN (ERYTHROMYCIN) 05/04/2005 8 - GI Upset MOBIC (MELOXICAM) 04/24/2016 14 - Other: See Comments Comments: Acid reflux NORVASC (AMLODIPINE BESYLATE) 03/02/2011 9 - Itching Comments: insomnia SPIRONOLACTONE 07/13/2016 6 - Diarrhea [id number] REDUCTASE INHIBIT*09/28/2013 14 - Other: See Comments Comments: Severe myalgias WELLBUTRIN (BUPROPION HCL) 01/13/2018 4 - Hives CRESTOR (ROSUVASTATIN) 09/20/2009 5 - Intolerance Comments: Myalgia LIPITOR (ATORVASTATIN) 09/20/2009 5 - Intolerance Comments: Myalgia LISINOPRIL 02/24/2007 3 - Cough Date Reviewed: 05/16/2018 Reviewed by: Bernadine Ritter LPN - Fully Assessed Reason for Visit: Pre-Op Exam [87] Cmt: Knee replacement Primary Visit Diagnosis:Pre-op evaluation [Z01.818] Other Visit Diagnoses:Essential hypertension [I10] SVT (supraventricular tachycardia) (HCC) [I47.1] Order(s):COMP METABOLIC PANEL [SQCMP] Order #: [id number] FUTURE CBC [SQCBC] Order #: [id number] FUTURE metoprolol tartrate, short acting, (LOPRESSOR) 50 mg tabletTake 1.5 tablets by mouth twice daily.Disp: 270 tabletRfl: 3 CONSULT TO CARDIOLOGY [9004] Order #: [id number]: 1 Prescriptions as of 05/16/2018 Sig: METOPROLOL TARTRATE 50 MG TAB* Take 1.5 tablets by mouth twi* ESCITALOPRAM 10 MG TABLET Take 1 tablet by mouth once d* ESCITALOPRAM 20 MG TABLET Take 1 tablet by mouth once d* COMPOUNDED PRESCRIPTION Take 1,000 mg by mouth once d* TRIAMCINOLONE ACETONIDE 0.1 %* Apply 1 application to affect* LOSARTAN 50 MG TABLET Take 1 tablet by mouth twice * COMPOUNDED PRESCRIPTION Magnesium 1 daily ASPIRIN 81 MG TABLET,DELAYED * Take 1 tablet by mouth once d* THERAPEUTIC MULTIVITAMIN TABL* Take one(1) tablet daily. FISH OIL 500 MG CAPSULE Take one(1) capsule daily. Problem List As Of Date 05/16/2018 Noted Resolved DEPRESSIVE DISORDER NEC [F32.9] Anxiety state [F41.1] Esophageal reflux [K21.9] 02/12/2012 Irritable bowel syndrome [K58.9] BONE AND CARTILAGE DIS NOS [M89.9, M94.9] More... DIFFUS CYSTIC MASTOPATHY [N60.19] More... Essential hypertension [I10] INVALID FOR* HYPERLIPIDEMIA NEC/NOS [E78.5] INVALID FOR* HYPERGLYCEMIA [R79.89] INVALID FOR*03/05/2013 Urticaria, unspecified [L50.9] INVALID FOR*02/12/2012 Unspecified pruritic disorder [L29.9] INVALID FOR*02/12/2012 Unspecified hypertrophic and atrophic condition*INVALID FOR*08/11/2010 Other chronic dermatitis due to solar radiation*INVALID FOR*08/11/2010 NEVUS RIGHT UPPER BACK//BENIGN VLAD SKIN TRUNK [*INVALID FOR*08/11/2010 DERMATOFIBROMA///BENIGN VLAD SKIN ARM [D23.60] INVALID FOR*08/11/2010 Benign neoplasm of scalp and skin of neck [D23.*INVALID FOR*08/11/2010 Open wound site NOS [T14.8XXA] INVALID FOR*08/11/2010 Myalgia [M79.10] INVALID FOR*03/05/2013 Actinic Keratosis: Premalignant AK: R cheek fa*INVALID FOR* Inflamed Seborrheic Keratoses [L82.0] INVALID FOR*02/12/2012 Cutaneous skin tags: base neck and left axilla *INVALID FOR*02/12/2012 Intradermal nevus [D23.9] INVALID FOR*02/12/2012 Melanocytic nevi of trunk [D22.5] INVALID FOR*03/05/2013 Melanocytic nevus of upper extremity [D22.60] INVALID FOR*03/05/2013 Other seborrheic keratosis [L82.1] INVALID FOR*02/12/2012 Solar lentigines [L81.4] INVALID FOR*02/12/2012 Actinic skin damage [L57.8] INVALID FOR*02/12/2012 Pain in limb [M79.609] INVALID FOR*03/05/2013 Benign neoplasm of rectum and anal canal [D12.8*INVALID FOR* Pineal gland, 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] INVALID FOR* Pruritus [L29.9] INVALID FOR* Winter itch [L29.8] INVALID FOR* Xerosis cutis [L85.3] INVALID FOR* 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] INVALID FOR* Other seborrheic keratosis [L82.1] INVALID FOR* Melanocytic nevi of trunk [D22.5] INVALID FOR* Polo angioma [D18.01] INVALID FOR* Telangiectasia [I78.1] INVALID FOR* Solar lentigo [L81.4] INVALID FOR* Actinic skin damage [L57.8] INVALID FOR* Syncope [R55] INVALID FOR* Abnormal tilt table test [R94.09] INVALID FOR* Hypercholesterolemia [E78.00] INVALID FOR* Hypertension [I10] INVALID FOR*07/12/2016 Acute appendicitis with localized peritonitis [*INVALID FOR* SVT (supraventricular tachycardia) (HCC) [I47.1]INVALID FOR* Impaired fasting blood sugar [R73.01] Anxiety state, unspecified [F41.1] Sweating abnormality [L74.9] INVALID FOR* Overweight (BMI 25.0-29.9) [E66.3] INVALID FOR* Arthritis, multiple joint involvement [M12.9] INVALID FOR* Gastroesophageal reflux disease [K21.9] INVALID FOR* Anxiety [F41.9] INVALID FOR* Elevated TSH [R79.89] INVALID FOR* Dysthymia [F34.1] INVALID FOR* Other instructions from your clinician: Dr. Giles Cardiology office Prescriptions ordered this encounter Disp Refills Start End METOPROLOL TARTRATE 50 MG TABLET 270 * 3 05/16/2018 Route: ORAL Sig: Take 1.5 tablets by mouth twice daily. Medications Discontinued During This Encounter metoprolol tartrate, short acting, (* 180 * 3 02/21/2018 05/16/2018 Cmt: This prescription was filled on 02/21/2018. Any refills authorized will be placed on file. Route: ORAL Sig: Take 1 tablet by mouth twice daily. Disc: Reason for discontinue is not on file. Encounter Status:Closed by RODGER ARENAS DO on 05/16/18 ECG COMPLETE W Observed: 05/12/2018 Status: F Source: [facility] 8:45 AM [facility] REPOSITORY NAME : CHICHI TEJEDA PID : [id number] : 1940 Gender : Female Race : ORD : [id number] Procedure Date : May 12 2018 08:45:30 Edit Date : May 16 2018 15:39:47 Diagnosis:SINUS BRADYCARDIA NONSPECIFIC ST AND T WAVE ABNORMALITY ANTERIOR MYOCARDIAL INFARCTION , AGE UNDETERMINED LEFT AXIS DEVIATION ABNORMAL ECG Confirmed by ILIANA MICHAELS D.O. ([id number]) on 05/16/2018 3:39:46 PM Ventricular Rate : 52 BPM Atrial Rate : 52 BPM P-R Interval : 180 ms QRS Duration : 82 ms Q-T Interval : 460 ms QTC Calculation(Bezet) : 427 ms P Lavalette : 58 degrees R Lavalette : -22 degrees T Lavalette : 49 degrees Test Reason : Location : 185 : WO Overread By : ILIANA MICHAELS D.O. Edited By : ILIANA MICHAELS D.O. Referred By : TIM JURADO Acquired by : GIBSON PEDERSEN, EKG1 Observed: 05/12/2018 Status: F Source: [place] 8:44 AM [facility] REPOSITORY NAME : CHICHI TEJEDA PID : [id number] : 1940 Gender : Female Race : ORD : Procedure Date : May 12 2018 08:44:52 Edit Date : May 16 2018 15:38:43 Diagnosis:SINUS BRADYCARDIA LEFT VENTRICULAR HYPERTROPHY WITH REPOLARIZATION ABNORMALITY CANNOT EXCLUDE ANTERIOR MYOCARDIAL INFARCTION , AGE UNDETERMINED ABNORMAL ECG Confirmed by ILIANA MICHAELS D.O. ([id number]) on 05/16/2018 3:38:41 PM Ventricular Rate : 51 BPM Atrial Rate : 51 BPM P-R Interval : 178 ms QRS Duration : 86 ms Q-T Interval : 458 ms QTC Calculation(Bezet) : 422 ms P Lavalette : 56 degrees R Lavalette : -23 degrees T Lavalette : 44 degrees Test Reason : Location : 185 : WOFM Overread By : ILIANA MICHAELS D.O. Edited By : ILIANA MICHAELS D.O. Referred By : TIM JURADO Acquired by : GIBSON PEDERSEN, PROGRESS Observed: 05/12/2018 Status: COMPLETED Source: [place] 8:25 AM [facility] REPOSITORY HNO ID: [id number] Author: Anabelle Puente Apn Student Service: (none) Author Type: (none) Type: Progress Notes Filed: 05/12/2018 9:51 AM Note Text: HPI/CC: Chichi Tejeda is a 77 year old female who presents to the office today for HTN F/U. states that she is feeling well and denies any symptoms referable to elevated blood pressure. Specifically denies chest pain, palpitations, dyspnea and peripheral edema. Patient denies any side effects of her medication(s) and is compliant with their regimen. Patient states that she feels anxious and her head feels full Patient took Losartan 50mg and Metoprolol 50mg around 0815 prior to office arrival. Patient states that she is nervous about her left knee surgery coming up which is May 28. Last 3 Encounter BP Readings: Date: BP: 05/12/2018 193/92 01/13/2018 134/80 11/05/2017 126/82 She watches her diet for sodium, low fat and low cholesterol generally not very much. She does check BP's away from this office with average BP's in the 130/80 range. Chichi denies regular aerobic exercise. REVIEW OF SYSTEMS: as above Reviewed relevant PMHx, PSHx, Social Hx, current medications and allergies. PHYSICAL EXAMINATION: BP 193/92 (BP Site: Left Arm, BP Position: Sitting, BP Cuff Size: Large Adult) Pulse (!) 54 Resp 16 Wt 70.8 kg (156 lb 0.8 oz) BMI 28.54 kg/m? General appearance: Well appearing, alert, in no acute distress, well-hydrated, well nourished. Skin: Skin color, texture, turgor normal, no suspicious rashes or lesions Neck: Supple, no adenopathy; thyroid symmetric, normal size, no bruits Lungs: Lungs clear to auscultation. No wheezing, rhonchi, rales Heart: RRR without murmur, gallop, or rubs. No ectopy Abdomen: Normal abdominal exam, Abdomen soft, non-tender. Bowel sounds normal. No masses, organomegaly Extremities: No deformities, edema, skin discoloration, clubbing or cyanosis. Good capillary refill. Peripheral pulses: Normal ASSESSMENT/PLAN: 1. Hypertension, unspecified type - ICD9: 401.9, ICD10: I10 (primary diagnosis) - suboptimal control - Continue current medication(s) - Recommended regular aerobic exercise. - Recommend home blood pressure monitoring, to bring results in on next visit - Recheck in 1 week, sooner should new symptoms or problems arise. - Goal of BP <130/80 - ECG COMPLETE W INTERPRETATION 2. Anxiety state - ICD9: 300.00, ICD10: F41.1 - increase lexapro - anxiety may be contributing to increased BP Tim Jurado APRN.LILLY HIDALGOOV Observed: 05/12/2018 Status: COMPLETED Source: [place] 8:20 AM [facility] REPOSITORY Office Visit (FAMPWS) CHICHI TEJEDA ([id number]) 1940 F Date Time Provider Department 05/12/18 8:20 AM TIM JURADO (LILLY) FAMPWS During your visit today, we recorded the following information about you: Pulse Respiration Blood pressure Weight 54/minute 16/minute 193/92 70.8 kg Anabelle Chanpatrice Enriquez Student 05/12/2018 8:31 AM Signed HPI/CC: Chichi Tejeda is a 77 year old female who presents to the office today for HTN F/U. states that she is feeling well and denies any symptoms referable to elevated blood pressure. Specifically denies chest pain, palpitations, dyspnea and peripheral edema. Patient denies any side effects of her medication(s) and is compliant with their regimen. Patient states that she feels anxious and her head feels full Patient took Losartan 50mg and Metoprolol 50mg around 0815 prior to office arrival. Patient states that she is nervous about her left knee surgery coming up which is May 28. Last 3 Encounter BP Readings: Date: BP: 05/12/2018 193/92 01/13/2018 134/80 11/05/2017 126/82 She watches her diet for sodium, low fat and low cholesterol generally not very much. She does check BP's away from this office with average BP's in the 130/80 range. Chichi denies regular aerobic exercise. REVIEW OF SYSTEMS: as above Reviewed relevant PMHx, PSHx, Social Hx, current medications and allergies. PHYSICAL EXAMINATION: BP 193/92 (BP Site: Left Arm, BP Position: Sitting, BP Cuff Size: Large Adult) Pulse (!) 54 Resp 16 Wt 70.8 kg (156 lb 0.8 oz) BMI 28.54 kg/m? General appearance: Well appearing, alert, in no acute distress, well-hydrated, well nourished. Skin: Skin color, texture, turgor normal, no suspicious rashes or lesions Neck: Supple, no adenopathy; thyroid symmetric, normal size, no bruits Lungs: Lungs clear to auscultation. No wheezing, rhonchi, rales Heart: RRR without murmur, gallop, or rubs. No ectopy Abdomen: Normal abdominal exam, Abdomen soft, non-tender. Bowel sounds normal. No masses, organomegaly Extremities: No deformities, edema, skin discoloration, clubbing or cyanosis. Good capillary refill. Peripheral pulses: Normal ASSESSMENT/PLAN: 1. Hypertension, unspecified type - ICD9: 401.9, ICD10: I10 (primary diagnosis) - suboptimal control - Continue current medication(s) - Recommended regular aerobic exercise. - Recommend home blood pressure monitoring, to bring results in on next visit - Recheck in 1 week, sooner should new symptoms or problems arise. - Goal of BP <130/80 - ECG COMPLETE W INTERPRETATION 2. Anxiety state - ICD9: 300.00, ICD10: F41.1 - increase lexapro - anxiety may be contributing to increased BP Tim Jurado APRN.[employer] Referring Provider: SELF [200] Allergies As of Date: 05/12/2018 Noted Allergy Reaction E-MYCIN (ERYTHROMYCIN) 05/04/2005 8 - GI Upset MOBIC (MELOXICAM) 04/24/2016 14 - Other: See Comments Comments: Acid reflux NORVASC (AMLODIPINE BESYLATE) 03/02/2011 9 - Itching Comments: insomnia SPIRONOLACTONE 07/13/2016 6 - Diarrhea [id number] REDUCTASE INHIBIT*09/28/2013 14 - Other: See Comments Comments: Severe myalgias WELLBUTRIN (BUPROPION HCL) 01/13/2018 4 - Hives CRESTOR (ROSUVASTATIN) 09/20/2009 5 - Intolerance Comments: Myalgia LIPITOR (ATORVASTATIN) 09/20/2009 5 - Intolerance Comments: Myalgia LISINOPRIL 02/24/2007 3 - Cough Date Reviewed: 05/12/2018 Reviewed by: Ann Haynes LPN - Fully Assessed Reason for Visit: Established Patient [175] Primary Visit Diagnosis:Hypertension, unspecified type [I10] Other Visit Diagnosis:Anxiety state [F41.1] Order(s):ECG COMPLETE W INTERPRETATION [ECG01] Order #: [id number] FUTURE escitalopram oxalate (LEXAPRO) 10 mg tabletTake 1 tablet by mouth once daily. Total of 30 mg dailyDisp: 30 tabletRfl: 1 Prescriptions as of 05/12/2018 Sig: ESCITALOPRAM 10 MG TABLET Take 1 tablet by mouth once d* METOPROLOL TARTRATE 50 MG TAB* Take 1 tablet by mouth twice * ESCITALOPRAM 20 MG TABLET Take 1 tablet by mouth once d* COMPOUNDED PRESCRIPTION Take 1,000 mg by mouth once d* TRIAMCINOLONE ACETONIDE 0.1 %* Apply 1 application to affect* LOSARTAN 50 MG TABLET Take 1 tablet by mouth twice * COMPOUNDED PRESCRIPTION Magnesium 1 daily ASPIRIN 81 MG TABLET,DELAYED * Take 1 tablet by mouth once d* THERAPEUTIC MULTIVITAMIN TABL* Take one(1) tablet daily. FISH OIL 500 MG CAPSULE Take one(1) capsule daily. Problem List As Of Date 05/12/2018 Noted Resolved DEPRESSIVE DISORDER NEC [F32.9] Anxiety state [F41.1] Esophageal reflux [K21.9] 02/12/2012 Irritable bowel syndrome [K58.9] BONE AND CARTILAGE DIS NOS [M89.9, M94.9] More... DIFFUS CYSTIC MASTOPATHY [N60.19] More... Essential hypertension [I10] INVALID FOR* HYPERLIPIDEMIA NEC/NOS [E78.5] INVALID FOR* HYPERGLYCEMIA [R79.89] INVALID FOR*03/05/2013 Urticaria, unspecified [L50.9] INVALID FOR*02/12/2012 Unspecified pruritic disorder [L29.9] INVALID FOR*02/12/2012 Unspecified hypertrophic and atrophic condition*INVALID FOR*08/11/2010 Other chronic dermatitis due to solar radiation*INVALID FOR*08/11/2010 NEVUS RIGHT UPPER BACK//BENIGN VLAD SKIN TRUNK [*INVALID FOR*08/11/2010 DERMATOFIBROMA///BENIGN VLAD SKIN ARM [D23.60] INVALID FOR*08/11/2010 Benign neoplasm of scalp and skin of neck [D23.*INVALID FOR*08/11/2010 Open wound site NOS [T14.8XXA] INVALID FOR*08/11/2010 Myalgia [M79.10] INVALID FOR*03/05/2013 Actinic Keratosis: Premalignant AK: R cheek fa*INVALID FOR* Inflamed Seborrheic Keratoses [L82.0] INVALID FOR*02/12/2012 Cutaneous skin tags: base neck and left axilla *INVALID FOR*02/12/2012 Intradermal nevus [D23.9] INVALID FOR*02/12/2012 Melanocytic nevi of trunk [D22.5] INVALID FOR*03/05/2013 Melanocytic nevus of upper extremity [D22.60] INVALID FOR*03/05/2013 Other seborrheic keratosis [L82.1] INVALID FOR*02/12/2012 Solar lentigines [L81.4] INVALID FOR*02/12/2012 Actinic skin damage [L57.8] INVALID FOR*02/12/2012 Pain in limb [M79.609] INVALID FOR*03/05/2013 Benign neoplasm of rectum and anal canal [D12.8*INVALID FOR* Pineal gland, 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] INVALID FOR* Pruritus [L29.9] INVALID FOR* Winter itch [L29.8] INVALID FOR* Xerosis cutis [L85.3] INVALID FOR* 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] INVALID FOR* Other seborrheic keratosis [L82.1] INVALID FOR* Melanocytic nevi of trunk [D22.5] INVALID FOR* Polo angioma [D18.01] INVALID FOR* Telangiectasia [I78.1] INVALID FOR* Solar lentigo [L81.4] INVALID FOR* Actinic skin damage [L57.8] INVALID FOR* Syncope [R55] INVALID FOR* Abnormal tilt table test [R94.09] INVALID FOR* Hypercholesterolemia [E78.00] INVALID FOR* Hypertension [I10] INVALID FOR*07/12/2016 Acute appendicitis with localized peritonitis [*INVALID FOR* SVT (supraventricular tachycardia) (HCC) [I47.1]INVALID FOR* Impaired fasting blood sugar [R73.01] Anxiety state, unspecified [F41.1] Sweating abnormality [L74.9] INVALID FOR* Overweight (BMI 25.0-29.9) [E66.3] INVALID FOR* Arthritis, multiple joint involvement [M12.9] INVALID FOR* Gastroesophageal reflux disease [K21.9] INVALID FOR* Anxiety [F41.9] INVALID FOR* Elevated TSH [R79.89] INVALID FOR* Dysthymia [F34.1] INVALID FOR* Prescriptions ordered this encounter Disp Refills Start End ESCITALOPRAM 10 MG TABLET 30 t* 1 05/12/2018 Route: ORAL Sig: Take 1 tablet by mouth once daily. Total of 30 mg daily Medications Discontinued During This Encounter Coenzyme Q10 100 mg ORAL Cap 0 10/26/2010 05/12/2018 Class: OTC Route: ORAL Sig: Take 1 capsule by mouth once daily. Disc: Reason for discontinue is not on file. COMPOUNDED PRESCRIPTION 05/12/2018 Class: Historical Med Sig: Tumeric Curcumin complex 500mg Disc: Reason for discontinue is not on file. Encounter Status:Closed by TIM JURADO CNP on 05/12/18 LESION (CHOOSE SITE) Observed: 01/14/2018 Status: F Source: [place] 12:05 PM [facility] REPOSITORY Patient: CHICHI TEJEDA : 1940 (77/F) Acct Num: [id number] Phys: Ozzy LORENZ,Luis Eduardo Unit Num: [id number] Loc: LABSPEC Specimen: [id number] Received: 01/14/18 - 1519 Spec Type: Lesion TISSUES TISSUES: Skin of face, NOS - RIGHT COMMENT Please make reference to previous specimen ([id number]), left lower lid skin lesion , biopsy with diagnosis of pigmented seborrheic keratosis and epidermal inclusion cyst. Case has been reviewed in consultation with Dr. Madden who concurs with the above diagnosis. IDC:AM GROSS DESCRIPTION Received is one container labeled with the patient's name and not further designated. The specimen consists of a espinoza-white skin ellipse measuring 2.5 x 0.6 cm and up to 0.2 cm in thickness. The specimen is oriented as follows: suture on inferior margin. The specimen is inked as follows: superior margin black, inferior margin blue, superior margin designated as 12 o clock, 3 o clock tip is inked yellow, 9 o clock tip is inked green, deep margin inked black. The entire specimen is submitted in two cassettes as follows: 1 3 o clock and 9 o clock tip, 2 rest of the specimen. The tissue in block 2 will be serially sectioned at the time of embedding. / ESTUARDO:dusty 01/15/18 TC:5 CPT: 70050 HEADER OPERATION: Right excision facial lesion PRE-OP DIAGNOSIS: Basal cell carcinoma of skin of other parts of face TISSUE SUBMITTED: Basal cell suture on inferior margin MICROSCOPIC DESCRIPTION Slides are reviewed. MICROSCOPIC DIAGNOSIS Right facial lesion, excision: Extensive solar elastosis. Minimal actinic keratosis. Negative for malignancy. SJ:dusty 01/16/18 Signed Vlad Melo 01/17/18 <signature on file> Performed By: #### PLES #### [facility] [address] [place] [address]. [place], [address] PROGRESS Observed: 01/13/2018 Status: COMPLETED Source: [place] 12:08 PM [facility] REPOSITORY HNO ID: [id number] Author: Rodger Arenas Service: (none) Author Type: Physician Type: Progress Notes Filed: 01/13/2018 12:12 PM Note Text: CC: Chichi Tejeda is a 77 year old female who presents to the office for follow up HPI: Seen in office 3 month ago, at that time ? Mood, was struggling recently with depressed mood and anxiousness at bedtime, ?Trouble falling and staying asleep. ??No SI or HI. Finding for the last 3-4 weeks she isn't finding the patricia from her hobbies that she used to enjoy. She was started on Wellbutrin 150 mg XL in the morning. ?She has been having some red itching hives on palms and arms for the last few days (since Saturday), started off and on a few weeks ago, admits to having a lot of anxiety recently due to 2 granddaughter's being , 1 that has pre eclampsia concerns and 1 that is due with 2nd child mid October (works at [employer] in [facility]). ?No SI or HI. ?Hasn't taken an Ativan recently ? At last OFFICE VISIT 2 months ago HTN, has been overall controlled, no CP or dyspnea or LH/dizziness. ?Feeling well, hasn't been monitoring BLOOD PRESSURE at home recently. ? She was stopped off Wellbutrin XL and changed to short acting formulation, still is having urticaria and rashes occasionally on palms and arms, comes and goes. ? Still is itching in those areas. No other symptoms She was then stopped off the wellbutrin Currently No further hives, no urticaria anywhere, Only occasional palmar rash/itching without hives, mostly when outside etc. HTN, well controlled, no concerns. Mood, doing well, enjoying the summer and being outside. PAST MEDICAL HISTORY Diagnosis Date - Actinic Keratosis: Premalignant AK: R cheek face 03/19/2011 - Anxiety state, unspecified - Benign neoplasm of rectum and anal canal - Degenerative arthritis of knee, bilateral ortho Dr. 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 - L'SCOPE DX W/WO BRUSHINGS/WASHINGS 04/24/1976 Laparoscopy BPS - LAPAROSCOPIC CHOLEYCYSTECTOMY 09/21/1999 Cholecystectomy, lap - LAPAROSCOPY, SURGICAL, APPENDECTOMY 06-23- - S KIT KNEE ARTHOSCOPY CARDINAL 11/16/2011 left knee Current Outpatient Prescriptions: COMPOUNDED PRESCRIPTION Take 1,000 mg by mouth once daily. Vit d 3 1000 - daily metoprolol tartrate, short acting, (LOPRESSOR) 50 mg tablet Take 1 tablet by mouth twice daily. losartan (COZAAR) 50 mg tablet Take 1 tablet by mouth twice daily. escitalopram oxalate (LEXAPRO) 20 mg tablet Take 1 tablet by mouth once daily. COMPOUNDED PRESCRIPTION Magnesium 1 daily aspirin, enteric coated (ASPIRIN, ENTERIC COATED) 81 mg EC tablet Take 1 tablet by mouth once daily. therapeutic multivitamin ORAL tablet Take one(1) tablet daily. omega-3 fatty acids(FISH OIL 500 MG CAP) Take one(1) capsule daily. triamcinolone acetonide (KENALOG) 0.1 % cream Apply 1 application to affected area three times daily as needed. Apply sparingly to area for rash/itching. zoster vaccine, recombinant, adjuvanted, (SHINGRIX) 50 mcg/0.5 mL injection Inject 0.5 mL intramuscularly one time only for 1 dose. COMPOUNDED PRESCRIPTION Tumeric Curcumin complex 500mg Coenzyme Q10 100 mg ORAL Cap Take 1 capsule by mouth once daily. No current facility-administered medications for this visit. ALLERGIES Allergen Reactions - E-Mycin [Erythromyc* GI Upset - Mobic [Meloxicam] Other: See Comments Acid reflux - Norvasc [Amlodipine* Itching insomnia - Spironolactone Diarrhea - Wtwmtfh-Ret-Afy Red* Other: See Comments Severe myalgias - Wellbutrin [Bupropi* Hives - Crestor [Rosuvastat* Intolerance Myalgia - Lipitor [Atorvastat* Intolerance Myalgia - Lisinopril Cough Social History Marital status: Spouse name: Savannah Years of education: Number of children: 3 Occupational History Occupation Employer Comment retired [employer] Social History Main Topics Smoking status: Former Smoker Packs/day: 0.00 Years: 5.00 Quit date: 07/08/1999 Smokeless tobacco: Never Used Comment: Quit 1999 2-3 cig per day Alcohol use: Yes Comment: wine occasionallly Drug use: No Sexual activity: No Social History Narrative , Goes by Mariya Enjoys crocheting, quilting ROS: See HPI PE: BP 134/80 Pulse 64 Temp (Src) 96.8 (Left Tympanic) Resp 16 Wt 156 lb (70.8kg) Gen: AANDOX3, NAD, non-toxic appearing HEENT: PERRLA, EOMs intact b/l, nares without drainage, pharynx without erythema, exudate, lesions, or drainage. Uvula midline. Neck: No LAD, no thyromegaly, no meningismus. CV: RRR, no murmur Lungs: CTA b/l, no wheezing Skin: eczematous rash on b/l palmar surfaces of hands No edema, Normal pulses ASSESSMENT/PLAN: 1. Other eczema - ICD9: 692.9, ICD10: L30.8 (primary diagnosis) - discussed skin care of rash - follow up if symptoms persist or worsen. - Dry skin care instructions reviewed - Use mild soap like Dove, Aveeno or Cetaphil - limit shower/bath to less than 15 minutes with warm, not hot, water - BID use of recommended emollients such as Cetaphil, Eucerin Plus, Aveeno, Aquaphor - Follow up if symptoms persist or worsen. - TRIAMCINOLONE ACETONIDE 0.1 % TOPICAL CREAM 2. Need for shingles vaccine - ICD9: V04.89, ICD10: Z23 - VARICELLA-ZOSTER GLYCOE VACC-AS01B ADJ(PF) 50 MCG/0.5 ML IM SUSP, KIT 3. Urticaria - ICD9: 708.9, ICD10: L50.9 - Resolved, sensitive to Wellbutrin, added to allergy list 4. Essential hypertension - ICD9: 401.9, ICD10: I10 - good control - Continue current medication(s) - Encouraged dietary sodium restriction/DASH diet - Recommended regular aerobic exercise. - Recommend home blood pressure monitoring, to bring results in on next visit - Goal of BP <130/80 5. Anxiety - ICD9: 300.00, ICD10: F41.9 - stable Rodger Arenas DO Return if no improvement. Follow up with Rodger Arenas DO. Discussed risks, benefits, alternatives, and potential side effects of medications. Patient/Guardian expressed understanding and agreed with the plan. See patient instructions. Rodger Arenas DO [address] [place] [address] JOSE Observed: 01/13/2018 Status: COMPLETED Source: HOLIDAY 10:40 AM [facility] REPOSITORY Office Visit (FAMPWS) CHICHI TEJEDA ([id number]) 1940 F Date Time Provider Department 01/13/18 10:40 AM RODGER ARENASWS During your visit today, we recorded the following information about you: Temperature Pulse Respiration Blood pressure 96.8 degrees 64/minute 16/minute 134/80 Weight 70.8 kg Rodger Arenas DO 01/13/2018 12:12 PM Signed CC: Chichi Tejeda is a 77 year old female who presents to the office for follow up HPI: Seen in office 3 month ago, at that time ? Mood, was struggling recently with depressed mood and anxiousness at bedtime, ?Trouble falling and staying asleep. ??No SI or HI. Finding for the last 3-4 weeks she isn't finding the patricia from her hobbies that she used to enjoy. She was started on Wellbutrin 150 mg XL in the morning. ?She has been having some red itching hives on palms and arms for the last few days (since Saturday), started off and on a few weeks ago, admits to having a lot of anxiety recently due to 2 granddaughter's being , 1 that has pre eclampsia concerns and 1 that is due with 2nd child mid October (works at [employer] in [facility]). ?No SI or HI. ?Hasn't taken an Ativan recently ? At last OFFICE VISIT 2 months ago HTN, has been overall controlled, no CP or dyspnea or LH/dizziness. ?Feeling well, hasn't been monitoring BLOOD PRESSURE at home recently. ? She was stopped off Wellbutrin XL and changed to short acting formulation, still is having urticaria and rashes occasionally on palms and arms, comes and goes. ? Still is itching in those areas. No other symptoms She was then stopped off the wellbutrin Currently No further hives, no urticaria anywhere, Only occasional palmar rash/itching without hives, mostly when outside etc. HTN, well controlled, no concerns. Mood, doing well, enjoying the summer and being outside. PAST MEDICAL HISTORY Diagnosis Date - Actinic Keratosis: Premalignant AK: R cheek face 03/19/2011 - Anxiety state, unspecified - Benign neoplasm of rectum and anal canal - Degenerative arthritis of knee, bilateral ortho Dr. 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 - L'SCOPE DX W/WO BRUSHINGS/WASHINGS 04/24/1976 Laparoscopy BPS - LAPAROSCOPIC CHOLEYCYSTECTOMY 09/21/1999 Cholecystectomy, lap - LAPAROSCOPY, SURGICAL, APPENDECTOMY 06-23-15 - S KIT KNEE ARTHOSCOPY CARDINAL 11/16/2011 left knee Current Outpatient Prescriptions: COMPOUNDED PRESCRIPTION Take 1,000 mg by mouth once daily. Vit d 3 1000 - daily metoprolol tartrate, short acting, (LOPRESSOR) 50 mg tablet Take 1 tablet by mouth twice daily. losartan (COZAAR) 50 mg tablet Take 1 tablet by mouth twice daily. escitalopram oxalate (LEXAPRO) 20 mg tablet Take 1 tablet by mouth once daily. COMPOUNDED PRESCRIPTION Magnesium 1 daily aspirin, enteric coated (ASPIRIN, ENTERIC COATED) 81 mg EC tablet Take 1 tablet by mouth once daily. therapeutic multivitamin ORAL tablet Take one(1) tablet daily. omega-3 fatty acids(FISH OIL 500 MG CAP) Take one(1) capsule daily. triamcinolone acetonide (KENALOG) 0.1 % cream Apply 1 application to affected area three times daily as needed. Apply sparingly to area for rash/itching. zoster vaccine, recombinant, adjuvanted, (SHINGRIX) 50 mcg/0.5 mL injection Inject 0.5 mL intramuscularly one time only for 1 dose. COMPOUNDED PRESCRIPTION Tumeric Curcumin complex 500mg Coenzyme Q10 100 mg ORAL Cap Take 1 capsule by mouth once daily. No current facility-administered medications for this visit. ALLERGIES Allergen Reactions - E-Mycin [Erythromyc* GI Upset - Mobic [Meloxicam] Other: See Comments Acid reflux - Norvasc [Amlodipine* Itching insomnia - Spironolactone Diarrhea - Sulfeyj-Dkn-Njn Red* Other: See Comments Severe myalgias - Wellbutrin [Bupropi* Hives - Crestor [Rosuvastat* Intolerance Myalgia - Lipitor [Atorvastat* Intolerance Myalgia - Lisinopril Cough Social History Marital status: Spouse name: Savannah Years of education: Number of children: 3 Occupational History Occupation Employer Comment retired [employer] Social History Main Topics Smoking status: Former Smoker Packs/day: 0.00 Years: 5.00 Quit date: 07/08/1999 Smokeless tobacco: Never Used Comment: Quit 1999 2-3 cig per day Alcohol use: Yes Comment: wine occasionallly Drug use: No Sexual activity: No Social History Narrative , Goes by Mariya Enjoys crocheting, quilting ROS: See HPI PE: BP 134/80 Pulse 64 Temp (Src) 96.8 (Left Tympanic) Resp 16 Wt 156 lb (70.8kg) Gen: AANDOX3, NAD, non-toxic appearing HEENT: PERRLA, EOMs intact b/l, nares without drainage, pharynx without erythema, exudate, lesions, or drainage. Uvula midline. Neck: No LAD, no thyromegaly, no meningismus. CV: RRR, no murmur Lungs: CTA b/l, no wheezing Skin: eczematous rash on b/l palmar surfaces of hands No edema, Normal pulses ASSESSMENT/PLAN: 1. Other eczema - ICD9: 692.9, ICD10: L30.8 (primary diagnosis) - discussed skin care of rash - follow up if symptoms persist or worsen. - Dry skin care instructions reviewed - Use mild soap like Dove, Aveeno or Cetaphil - limit shower/bath to less than 15 minutes with warm, not hot, water - BID use of recommended emollients such as Cetaphil, Eucerin Plus, Aveeno, Aquaphor - Follow up if symptoms persist or worsen. - TRIAMCINOLONE ACETONIDE 0.1 % TOPICAL CREAM 2. Need for shingles vaccine - ICD9: V04.89, ICD10: Z23 - VARICELLA-ZOSTER GLYCOE VACC-AS01B ADJ(PF) 50 MCG/0.5 ML IM SUSP, KIT 3. Urticaria - ICD9: 708.9, ICD10: L50.9 - Resolved, sensitive to Wellbutrin, added to allergy list 4. Essential hypertension - ICD9: 401.9, ICD10: I10 - good control - Continue current medication(s) - Encouraged dietary sodium restriction/DASH diet - Recommended regular aerobic exercise. - Recommend home blood pressure monitoring, to bring results in on next visit - Goal of BP <130/80 5. Anxiety - ICD9: 300.00, ICD10: F41.9 - stable Rodger Arenas DO Return if no improvement. Follow up with Rodger Arenas DO. Discussed risks, benefits, alternatives, and potential side effects of medications. Patient/Guardian expressed understanding and agreed with the plan. See patient instructions. Rodger Arenas DO [address] [place] [address] Referring Provider: RODGER ARENAS [[id number]] Allergies As of Date: 01/13/2018 Noted Allergy Reaction E-MYCIN (ERYTHROMYCIN) 05/04/2005 8 - GI Upset MOBIC (MELOXICAM) 04/24/2016 14 - Other: See Comments Comments: Acid reflux NORVASC (AMLODIPINE BESYLATE) 03/02/2011 9 - Itching Comments: insomnia SPIRONOLACTONE 07/13/2016 6 - Diarrhea PLSKYPF-LMH-LZK REDUCTASE INHIBIT*09/28/2013 14 - Other: See Comments Comments: Severe myalgias WELLBUTRIN (BUPROPION HCL) 01/13/2018 4 - Hives CRESTOR (ROSUVASTATIN) 09/20/2009 5 - Intolerance Comments: Myalgia LIPITOR (ATORVASTATIN) 09/20/2009 5 - Intolerance Comments: Myalgia LISINOPRIL 02/24/2007 3 - Cough Date Reviewed: 01/13/2018 Reviewed by: Rodger Arenas - Fully Assessed Reason for Visit: Follow Up [171] Cmt: 6 months Primary Visit Diagnosis:Other eczema [L30.8] Other Visit Diagnoses:Need for shingles vaccine [Z23] Urticaria [L50.9] Essential hypertension [I10] Anxiety [F41.9] Order(s):COMPOUNDED PRESCRIPTIONTake 1,000 mg by mouth once daily. Vit d 3 1000 - dailyDisp: Rfl: 0 triamcinolone acetonide (KENALOG) 0.1 % creamApply 1 application to affected area three times daily as needed. Apply sparingly to area for rash/itching.Disp: 1 lbRfl: 1 zoster vaccine, recombinant, adjuvanted, (SHINGRIX) 50 mcg/0.5 mL injectionInject 0.5 mL intramuscularly one time only for 1 dose.Disp: 0.5 mLRfl: 0 Prescriptions as of 01/13/2018 Sig: COMPOUNDED PRESCRIPTION Take 1,000 mg by mouth once d* METOPROLOL TARTRATE 50 MG TAB* Take 1 tablet by mouth twice * LOSARTAN 50 MG TABLET Take 1 tablet by mouth twice * ESCITALOPRAM 20 MG TABLET Take 1 tablet by mouth once d* COMPOUNDED PRESCRIPTION Magnesium 1 daily ASPIRIN 81 MG TABLET,DELAYED * Take 1 tablet by mouth once d* THERAPEUTIC MULTIVITAMIN TABL* Take one(1) tablet daily. FISH OIL 500 MG CAPSULE Take one(1) capsule daily. TRIAMCINOLONE ACETONIDE 0.1 %* Apply 1 application to affect* VARICELLA-ZOSTER GLYCOE VACC-* Inject 0.5 mL intramuscularly* COMPOUNDED PRESCRIPTION Tumeric Curcumin complex 500mg COENZYME Q10 100 MG CAPSULE Take 1 capsule by mouth once * Medication notes this encounter BUPROPION HCL 100 MG TABLET >> Bernadine Ritter LPN 01/13/2018 10:41 AM >> BERNADINE RITTER LPN SatJan 13, 2018 10:41 AM finished COMPOUNDED PRESCRIPTION >> Bernadine Ritter LPN 01/13/2018 10:42 AM >> BERNADINE RITTER LPN [facility] Jan 13, 2018 10:42 AM Finished Problem List As Of Date 01/13/2018 Noted Resolved DEPRESSIVE DISORDER NEC [F32.9] Anxiety state [F41.1] Esophageal reflux [K21.9] 02/12/2012 Irritable bowel syndrome [K58.9] BONE AND CARTILAGE DIS NOS [M89.9, M94.9] More... DIFFUS CYSTIC MASTOPATHY [N60.19] More... Essential hypertension [I10] INVALID FOR* HYPERLIPIDEMIA NEC/NOS [E78.5] INVALID FOR* HYPERGLYCEMIA [R79.89] INVALID FOR*03/05/2013 Urticaria, unspecified [L50.9] INVALID FOR*02/12/2012 Unspecified pruritic disorder [L29.9] INVALID FOR*02/12/2012 Unspecified hypertrophic and atrophic condition*INVALID FOR*08/11/2010 Other chronic dermatitis due to solar radiation*INVALID FOR*08/11/2010 NEVUS RIGHT UPPER BACK//BENIGN VLAD SKIN TRUNK [*INVALID FOR*08/11/2010 DERMATOFIBROMA///BENIGN VLAD SKIN ARM [D23.60] INVALID FOR*08/11/2010 Benign neoplasm of scalp and skin of neck [D23.*INVALID FOR*08/11/2010 Open wound site NOS [T14.8XXA] INVALID FOR*08/11/2010 Myalgia [M79.1] INVALID FOR*03/05/2013 Actinic Keratosis: Premalignant AK: R cheek fa*INVALID FOR* Inflamed Seborrheic Keratoses [L82.0] INVALID FOR*02/12/2012 Cutaneous skin tags: base neck and left axilla *INVALID FOR*02/12/2012 Intradermal nevus [D23.9] INVALID FOR*02/12/2012 Melanocytic nevi of trunk [D22.5] INVALID FOR*03/05/2013 Melanocytic nevus of upper extremity [D22.60] INVALID FOR*03/05/2013 Other seborrheic keratosis [L82.1] INVALID FOR*02/12/2012 Solar lentigines [L81.4] INVALID FOR*02/12/2012 Actinic skin damage [L57.8] INVALID FOR*02/12/2012 Pain in limb [M79.609] INVALID FOR*03/05/2013 Benign neoplasm of rectum and anal canal [D12.8*INVALID FOR* Pineal gland, 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] INVALID FOR* Pruritus [L29.9] INVALID FOR* Winter itch [L29.8] INVALID FOR* Xerosis cutis [L85.3] INVALID FOR* 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] INVALID FOR* Other seborrheic keratosis [L82.1] INVALID FOR* Melanocytic nevi of trunk [D22.5] INVALID FOR* Polo angioma [D18.01] INVALID FOR* Telangiectasia [I78.1] INVALID FOR* Solar lentigo [L81.4] INVALID FOR* Actinic skin damage [L57.8] INVALID FOR* Syncope [R55] INVALID FOR* Abnormal tilt table test [R94.09] INVALID FOR* Hypercholesterolemia [E78.00] INVALID FOR* Hypertension [I10] INVALID FOR*07/12/2016 Acute appendicitis with localized peritonitis [*INVALID FOR* SVT (supraventricular tachycardia) (HCC) [I47.1]INVALID FOR* Impaired fasting blood sugar [R73.01] Anxiety state, unspecified [F41.1] Sweating abnormality [L74.9] INVALID FOR* Overweight (BMI 25.0-29.9) [E66.3] INVALID FOR* Arthritis, multiple joint involvement [M12.9] INVALID FOR* Gastroesophageal reflux disease [K21.9] INVALID FOR* Anxiety [F41.9] INVALID FOR* Elevated TSH [R79.89] INVALID FOR* Dysthymia [F34.1] INVALID FOR* Prescriptions ordered this encounter Disp Refills Start End COMPOUNDED PRESCRIPTION 0 01/13/2018 Class: Med Update Route: ORAL Sig: Take 1,000 mg by mouth once daily. Vit d 3 1000 - daily TRIAMCINOLONE ACETONIDE 0.1 % TOPICA* 1 lb 1 01/13/2018 Route: TOPICAL Sig: Apply 1 application to affected area three times daily as needed. Apply sparingly to area for rash/itching. VARICELLA-ZOSTER GLYCOE VACC-AS01B A* 0.5 * 0 01/13/2018 01/13/2018 Class: Print RX Route: INTRAMUSCULA Sig: Inject 0.5 mL intramuscularly one time only for 1 dose. Medications Discontinued During This Encounter buPROPion (WELLBUTRIN) 100 mg tablet 180 * 3 09/30/2017 01/13/2018 Route: ORAL Sig: Take 1 tablet by mouth twice daily. Disc: Reason for discontinue is not on file. COMPOUNDED PRESCRIPTION 0 06/29/2014 01/13/2018 Class: Historical Med Sig: Vit d 3 1000 - daily Disc: Reason for discontinue is not on file. Encounter Status:Closed by RODGER ARENAS DO on 01/13/18 LIPID PANEL, BASIC Collected: 01/10/2018 Status: F Source: HOLIDAY 7:35 AM [facility] [place] REPOSITORY TYPE CODE TESTS RESULT OUT OF REFERENCE UNITS RANGE LAB CHOL <200 mg/dL Cholesterol High 200 Result Comment: <200 mg/dL, Desirable 200-239 mg/dL, Borderline high >239 mg/dL, High LAB TRIGLY <150 mg/dL Triglyceride 140 Result Comment: <150 mg/dL, Normal 150-199 mg/dL, Borderline high 200-499 mg/dL, High >499 mg/dL, Very high LAB HDL >39 mg/dL HDL-Cholesterol 58 Result Comment: 40-59 mg/dL, Acceptable >59 mg/dL, High: Negative risk factor for coronary heart disease <40 mg/dL, Low: Positive risk factor for coronary heart disease LAB LDL <100 mg/dL LDL-Cholesterol High 114 Result Comment: <100 mg/dL, Optimal 100-129 mg/dL, Near optimal/above optimal 130-159 mg/dL, Borderline high 160-189 mg/dL, High >189 mg/dL, Very high Secondary prevention optimal LDL Cholesterol levels are recommended to be < 70 mg/dL LAB NONHDL <130 mg/dL Non HDL High Cholesterol 142 Result Comment: <130 mg/dL, Optimal 130-159 mg/dL, Near optimal/above optimal 160-189 mg/dL, Borderline high 190-219 mg/dL, High >219 mg/dL, Very high Secondary prevention optimal non HDL Cholesterol levels are recommended to be < 100 mg/dL LAB FT hrs Fasting Time 10 LAB VLDL <30 mg/dL VLDL Cholesterol 28 LAB TCHDL <5.10 TC:HDL Ratio 3.45 LAB LDLHDL <2.54 LDL:HDL Ratio 1.97 Result Comment: Reference: 1. National Cholesterol Education Program ATP III Guideline At-A-Glance Quick Desk Reference: National Heart, Lung, and Blood [place]. National Institutes of Health. 2001: NIH Publication No. 01-3305. 2. An International Atherosclerosis Society position paper: global recommendations for the management of dyslipidemia: executive summary, Atherosclerosis. 2014: 232(2):410-413. Performed By: #### LIPB #### [facility] [address] [place], [place] [address] CNPTOUTREACH Observed: 12/31/2017 Status: COMPLETED Source: HOLIDAY 12:00 AM [facility] REPOSITORY Patient Outreach (FAMPST) CHICHI TEJEDA ([id number]) 1940 F Date Time Provider Department 12/31/17 RODGER ARENAS FAMPST During your visit today, we recorded the following information about you: Allergies As of Date: 12/31/2017 Noted Allergy Reaction E-MYCIN (ERYTHROMYCIN) 05/04/2005 8 - GI Upset MOBIC (MELOXICAM) 04/24/2016 14 - Other: See Comments Comments: Acid reflux NORVASC (AMLODIPINE BESYLATE) 03/02/2011 9 - Itching Comments: insomnia SPIRONOLACTONE 07/13/2016 6 - Diarrhea DCAEXGM-VEH-OOZ REDUCTASE INHIBIT*09/28/2013 14 - Other: See Comments Comments: Severe myalgias CRESTOR (ROSUVASTATIN) 09/20/2009 5 - Intolerance Comments: Myalgia LIPITOR (ATORVASTATIN) 09/20/2009 5 - Intolerance Comments: Myalgia LISINOPRIL 02/24/2007 3 - Cough Date Reviewed: 11/05/2017 Reviewed by: Bernadine Ritter LPN - Fully Assessed Visit Diagnosis:Medication management [Z79.899] Order(s):LIPID PANEL BASIC [SQLIPB] Order #: [id number] FUTURE Prescriptions as of 12/31/2017 Sig: X METOPROLOL TARTRATE 50 MG TAB* Take 1 tablet by mouth twice * LOSARTAN 50 MG TABLET Take 1 tablet by mouth twice * X BUPROPION HCL 100 MG TABLET Take 1 tablet by mouth twice * COMPOUNDED PRESCRIPTION Tumeric Curcumin complex 500mg X ESCITALOPRAM 20 MG TABLET Take 1 tablet by mouth once d* COMPOUNDED PRESCRIPTION Magnesium 1 daily ASPIRIN 81 MG TABLET,DELAYED * Take 1 tablet by mouth once d* X COMPOUNDED PRESCRIPTION Vit d 3 1000 - daily COENZYME Q10 100 MG CAPSULE Take 1 capsule by mouth once * THERAPEUTIC MULTIVITAMIN TABL* Take one(1) tablet daily. FISH OIL 500 MG CAPSULE Take one(1) capsule daily. Problem List As Of Date 12/31/2017 Noted Resolved DEPRESSIVE DISORDER NEC [F32.9] Anxiety state [F41.1] Esophageal reflux [K21.9] 02/12/2012 Irritable bowel syndrome [K58.9] BONE AND CARTILAGE DIS NOS [M89.9, M94.9] More... DIFFUS CYSTIC MASTOPATHY [N60.19] More... Essential hypertension [I10] INVALID FOR* HYPERLIPIDEMIA NEC/NOS [E78.5] INVALID FOR* HYPERGLYCEMIA [R79.89] INVALID FOR*03/05/2013 Urticaria, unspecified [L50.9] INVALID FOR*02/12/2012 Unspecified pruritic disorder [L29.9] INVALID FOR*02/12/2012 Unspecified hypertrophic and atrophic condition*INVALID FOR*08/11/2010 Other chronic dermatitis due to solar radiation*INVALID FOR*08/11/2010 NEVUS RIGHT UPPER BACK//BENIGN VLAD SKIN TRUNK [*INVALID FOR*08/11/2010 DERMATOFIBROMA///BENIGN VLAD SKIN ARM [D23.60] INVALID FOR*08/11/2010 Benign neoplasm of scalp and skin of neck [D23.*INVALID FOR*08/11/2010 Open wound site NOS [T14.8XXA] INVALID FOR*08/11/2010 Myalgia [M79.10] INVALID FOR*03/05/2013 Actinic Keratosis: Premalignant AK: R cheek fa*INVALID FOR* Inflamed Seborrheic Keratoses [L82.0] INVALID FOR*02/12/2012 Cutaneous skin tags: base neck and left axilla *INVALID FOR*02/12/2012 Intradermal nevus [D23.9] INVALID FOR*02/12/2012 Melanocytic nevi of trunk [D22.5] INVALID FOR*03/05/2013 Melanocytic nevus of upper extremity [D22.60] INVALID FOR*03/05/2013 Other seborrheic keratosis [L82.1] INVALID FOR*02/12/2012 Solar lentigines [L81.4] INVALID FOR*02/12/2012 Actinic skin damage [L57.8] INVALID FOR*02/12/2012 Pain in limb [M79.609] INVALID FOR*03/05/2013 Benign neoplasm of rectum and anal canal [D12.8*INVALID FOR* Pineal gland, 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] INVALID FOR* Pruritus [L29.9] INVALID FOR* Winter itch [L29.8] INVALID FOR* Xerosis cutis [L85.3] INVALID FOR* 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] INVALID FOR* Other seborrheic keratosis [L82.1] INVALID FOR* Melanocytic nevi of trunk [D22.5] INVALID FOR* Polo angioma [D18.01] INVALID FOR* Telangiectasia [I78.1] INVALID FOR* Solar lentigo [L81.4] INVALID FOR* Actinic skin damage [L57.8] INVALID FOR* Syncope [R55] INVALID FOR* Abnormal tilt table test [R94.09] INVALID FOR* Hypercholesterolemia [E78.00] INVALID FOR* Hypertension [I10] INVALID FOR*07/12/2016 Acute appendicitis with localized peritonitis [*INVALID FOR* SVT (supraventricular tachycardia) (HCC) [I47.1]INVALID FOR* Impaired fasting blood sugar [R73.01] Anxiety state, unspecified [F41.1] Sweating abnormality [L74.9] INVALID FOR* Overweight (BMI 25.0-29.9) [E66.3] INVALID FOR* Arthritis, multiple joint involvement [M12.9] INVALID FOR* Gastroesophageal reflux disease [K21.9] INVALID FOR* Anxiety [F41.9] INVALID FOR* Elevated TSH [R79.89] INVALID FOR* Dysthymia [F34.1] INVALID FOR* Encounter Status:Closed by EPIC, PRODUSER on 04/18/18 PROGRESS Observed: 11/05/2017 Status: COMPLETED Source: HOLIDAY 12:33 PM [facility] REPOSITORY HNO ID: [id number] Author: Rodger Arenas Service: (none) Author Type: Physician Type: Progress Notes Filed: 11/05/2017 12:36 PM Note Text: CC: Chichi Tejeda is a 76 year old female who presents to the office for hives follolw up HPI: Seen in office 1 month ago, at that time Mood, was struggling recently with depressed mood and anxiousness at bedtime, ?Trouble falling and staying asleep. ??No SI or HI. Finding for the last 3-4 weeks she isn't finding the patricia from her hobbies that she used to enjoy. She was started on Wellbutrin 150 mg XL in the morning. She has been having some red itching hives on palms and arms for the last few days (since Saturday), started off and on a few weeks ago, admits to having a lot of anxiety recently due to 2 granddaughter's being , 1 that has pre eclampsia concerns and 1 that is due with 2nd child mid October (works at [employer] in [facility]). No SI or HI. Hasn't taken an Ativan recently ? HTN, has been overall controlled, no CP or dyspnea or LH/dizziness. Feeling well, hasn't been monitoring BLOOD PRESSURE at home recently. ? She was stopped off Wellbutrin XL and changed to short acting formulation, still is having urticaria and rashes occasionally on palms and arms, comes and goes. Still is itching in those areas. No other symptoms PAST MEDICAL HISTORY Diagnosis Date - Actinic Keratosis: Premalignant AK: R cheek face 03/19/2011 - Anxiety state, unspecified - Benign neoplasm of rectum and anal canal - Degenerative arthritis of knee, bilateral ortho Dr. 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 - L'SCOPE DX W/WO BRUSHINGS/WASHINGS 04/24/1976 Laparoscopy BPS - LAPAROSCOPIC CHOLEYCYSTECTOMY 09/21/1999 Cholecystectomy, lap - LAPAROSCOPY, SURGICAL, APPENDECTOMY 06-23-15 - S KIT KNEE ARTHOSCOPY CARDINAL 11/16/2011 left knee Current Outpatient Prescriptions: losartan (COZAAR) 50 mg tablet Take 1 tablet by mouth twice daily. buPROPion (WELLBUTRIN) 100 mg tablet Take 1 tablet by mouth twice daily. COMPOUNDED PRESCRIPTION Tumeric Curcumin complex 500mg escitalopram oxalate (LEXAPRO) 20 mg tablet Take 1 tablet by mouth once daily. metoprolol tartrate, short acting, (LOPRESSOR) 25 mg tablet Take 1 tablet by mouth twice daily. COMPOUNDED PRESCRIPTION Magnesium 1 daily aspirin, enteric coated (ASPIRIN, ENTERIC COATED) 81 mg EC tablet Take 1 tablet by mouth once daily. COMPOUNDED PRESCRIPTION Vit d 3 1000 - daily therapeutic multivitamin ORAL tablet Take one(1) tablet daily. omega-3 fatty acids(FISH OIL 500 MG CAP) Take one(1) capsule daily. Coenzyme Q10 100 mg ORAL Cap Take 1 capsule by mouth once daily. No current facility-administered medications for this visit. ALLERGIES Allergen Reactions - E-Mycin [Erythromyc* GI Upset - Mobic [Meloxicam] Other: See Comments Acid reflux - Norvasc [Amlodipine* Itching insomnia - Spironolactone Diarrhea - Vemmxvz-Que-Yfx Red* Other: See Comments Severe myalgias - Crestor [Rosuvastat* Intolerance Myalgia - Lipitor [Atorvastat* Intolerance Myalgia - Lisinopril Cough Social History Marital status: Spouse name: Savannah Years of education: Number of children: 3 Occupational History Occupation Employer Comment retired [employer] Social History Main Topics Smoking status: Former Smoker Packs/day: 0.00 Years: 5.00 Quit date: 07/08/1999 Smokeless tobacco: Never Used Comment: Quit 1999 2-3 cig per day Alcohol use: Yes Comment: wine occasionallly Drug use: No Sexual activity: No Social History Narrative , Goes by Mariya Enjoys crocheting, quilting ROS: See HPI PE: BP 126/82 Pulse 60 Temp (Src) 97.4 (Left Tympanic) Resp 16 Wt 153 lb (69.4kg) Gen: AANDOX3, NAD, non-toxic appearing Skin: palmar mild scatters hypothenar eminence urticaria No other areas of urticaria or rash or mucosal changes of mouth ASSESSMENT/PLAN: 1. Urticaria - ICD9: 708.9, ICD10: L50.9 - decrease and discontinue dose of Wellbutrin, if hives don't resolve, next medication to stop is Losartan and start on new BLOOD PRESSURE medication at that time. Rodger Arenas DO Return if no improvement. Follow up with Rodger Arenas. Discussed risks, benefits, alternatives, and potential side effects of medications. Patient/Guardian expressed understanding and agreed with the plan. See patient instructions. Rodger Arenas DO [address] [place] [address] CNOV Observed: 11/05/2017 Status: COMPLETED Source: CEE 11:00 AM [facility] REPOSITORY [facility] CHICHI TEJEDA ([id number]) 1940 F Date Time Provider Department 11/05/17 11:00 AM [facility] During your visit today, we recorded the following information about you: Temperature Pulse Respiration Blood pressure 97.4 degrees 60/minute 16/minute 126/82 Weight 69.4 kg Rodger Arenas DO 11/05/2017 11:43 AM Signed Wellbutrin- take 1 tablet every day for 2 weeks then 1 tablet every other day for 2 weeks then discontinue medication Rodger Arenas DO 11/05/2017 12:36 PM Signed CC: Chichi Tejeda is a 76 year old female who presents to the office for hives follolw up HPI: Seen in office 1 month ago, at that time Mood, was struggling recently with depressed mood and anxiousness at bedtime, ?Trouble falling and staying asleep. ??No SI or HI. Finding for the last 3-4 weeks she isn't finding the patricia from her hobbies that she used to enjoy. She was started on Wellbutrin 150 mg XL in the morning. She has been having some red itching hives on palms and arms for the last few days (since Saturday), started off and on a few weeks ago, admits to having a lot of anxiety recently due to 2 granddaughter's being , 1 that has pre eclampsia concerns and 1 that is due with 2nd child mid October (works at [employer] in [facility]). No SI or HI. Hasn't taken an Ativan recently ? HTN, has been overall controlled, no CP or dyspnea or LH/dizziness. Feeling well, hasn't been monitoring BLOOD PRESSURE at home recently. ? She was stopped off Wellbutrin XL and changed to short acting formulation, still is having urticaria and rashes occasionally on palms and arms, comes and goes. Still is itching in those areas. No other symptoms PAST MEDICAL HISTORY Diagnosis Date - Actinic Keratosis: Premalignant AK: R cheek face 03/19/2011 - Anxiety state, unspecified - Benign neoplasm of rectum and anal canal - Degenerative arthritis of knee, bilateral ortho Dr. 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 - L'SCOPE DX W/WO BRUSHINGS/WASHINGS 04/24/1976 Laparoscopy BPS - LAPAROSCOPIC CHOLEYCYSTECTOMY 09/21/1999 Cholecystectomy, lap - LAPAROSCOPY, SURGICAL, APPENDECTOMY 06-23- - S KIT KNEE ARTHOSCOPY CARDINAL 11/16/2011 left knee Current Outpatient Prescriptions: losartan (COZAAR) 50 mg tablet Take 1 tablet by mouth twice daily. buPROPion (WELLBUTRIN) 100 mg tablet Take 1 tablet by mouth twice daily. COMPOUNDED PRESCRIPTION Tumeric Curcumin complex 500mg escitalopram oxalate (LEXAPRO) 20 mg tablet Take 1 tablet by mouth once daily. metoprolol tartrate, short acting, (LOPRESSOR) 25 mg tablet Take 1 tablet by mouth twice daily. COMPOUNDED PRESCRIPTION Magnesium 1 daily aspirin, enteric coated (ASPIRIN, ENTERIC COATED) 81 mg EC tablet Take 1 tablet by mouth once daily. COMPOUNDED PRESCRIPTION Vit d 3 1000 - daily therapeutic multivitamin ORAL tablet Take one(1) tablet daily. omega-3 fatty acids(FISH OIL 500 MG CAP) Take one(1) capsule daily. Coenzyme Q10 100 mg ORAL Cap Take 1 capsule by mouth once daily. No current facility-administered medications for this visit. ALLERGIES Allergen Reactions - E-Mycin [Erythromyc* GI Upset - Mobic [Meloxicam] Other: See Comments Acid reflux - Norvasc [Amlodipine* Itching insomnia - Spironolactone Diarrhea - Xqgxcuh-Ksu-Dkg Red* Other: See Comments Severe myalgias - Crestor [Rosuvastat* Intolerance Myalgia - Lipitor [Atorvastat* Intolerance Myalgia - Lisinopril Cough Social History Marital status: Spouse name: Savannah Years of education: Number of children: 3 Occupational History Occupation Employer Comment retired [employer] Social History Main Topics Smoking status: Former Smoker Packs/day: 0.00 Years: 5.00 Quit date: 07/08/1999 Smokeless tobacco: Never Used Comment: Quit 1999 2-3 cig per day Alcohol use: Yes Comment: wine occasionallly Drug use: No Sexual activity: No Social History Narrative , Goes by Mariya Enjoys crocheting, quilting ROS: See HPI PE: BP 126/82 Pulse 60 Temp (Src) 97.4 (Left Tympanic) Resp 16 Wt 153 lb (69.4kg) Gen: AANDOX3, NAD, non-toxic appearing Skin: palmar mild scatters hypothenar eminence urticaria No other areas of urticaria or rash or mucosal changes of mouth ASSESSMENT/PLAN: 1. Urticaria - ICD9: 708.9, ICD10: L50.9 - decrease and discontinue dose of Wellbutrin, if hives don't resolve, next medication to stop is Losartan and start on new BLOOD PRESSURE medication at that time. Rodger Arenas DO Return if no improvement. Follow up with Rodger Arenas. Discussed risks, benefits, alternatives, and potential side effects of medications. Patient/Guardian expressed understanding and agreed with the plan. See patient instructions. Rodger Arenas DO [address] [place] [address] Referring Provider: RODGER ARENAS [[id number]] Allergies As of Date: 11/05/2017 Noted Allergy Reaction E-MYCIN (ERYTHROMYCIN) 05/04/2005 8 - GI Upset MOBIC (MELOXICAM) 04/24/2016 14 - Other: See Comments Comments: Acid reflux NORVASC (AMLODIPINE BESYLATE) 03/02/2011 9 - Itching Comments: insomnia SPIRONOLACTONE 07/13/2016 6 - Diarrhea [id number]-[id number]-KMP REDUCTASE INHIBIT*09/28/2013 14 - Other: See Comments Comments: Severe myalgias CRESTOR (ROSUVASTATIN) 09/20/2009 5 - Intolerance Comments: Myalgia LIPITOR (ATORVASTATIN) 09/20/2009 5 - Intolerance Comments: Myalgia LISINOPRIL 02/24/2007 3 - Cough Date Reviewed: 11/05/2017 Reviewed by: Bernadine Ritter LPN - Fully Assessed Reason for Visit: Follow Up [171] Primary Visit Diagnosis:Urticaria [L50.9] Prescriptions as of 11/05/2017 Sig: LOSARTAN 50 MG TABLET Take 1 tablet by mouth twice * BUPROPION HCL 100 MG TABLET Take 1 tablet by mouth twice * COMPOUNDED PRESCRIPTION Tumeric Curcumin complex 500mg ESCITALOPRAM 20 MG TABLET Take 1 tablet by mouth once d* METOPROLOL TARTRATE 25 MG TAB* Take 1 tablet by mouth twice * COMPOUNDED PRESCRIPTION Magnesium 1 daily ASPIRIN 81 MG TABLET,DELAYED * Take 1 tablet by mouth once d* COMPOUNDED PRESCRIPTION Vit d 3 1000 - daily THERAPEUTIC MULTIVITAMIN TABL* Take one(1) tablet daily. FISH OIL 500 MG CAPSULE Take one(1) capsule daily. COENZYME Q10 100 MG CAPSULE Take 1 capsule by mouth once * Problem List As Of Date 11/05/2017 Noted Resolved DEPRESSIVE DISORDER NEC [F32.9] Anxiety state [F41.1] Esophageal reflux [K21.9] 02/12/2012 Irritable bowel syndrome [K58.9] BONE AND CARTILAGE DIS NOS [M89.9, M94.9] More... DIFFUS CYSTIC MASTOPATHY [N60.19] More... Essential hypertension [I10] INVALID FOR* HYPERLIPIDEMIA NEC/NOS [E78.5] INVALID FOR* HYPERGLYCEMIA [R79.89] INVALID FOR*03/05/2013 Urticaria, unspecified [L50.9] INVALID FOR*02/12/2012 Unspecified pruritic disorder [L29.9] INVALID FOR*02/12/2012 Unspecified hypertrophic and atrophic condition*INVALID FOR*08/11/2010 Other chronic dermatitis due to solar radiation*INVALID FOR*08/11/2010 NEVUS RIGHT UPPER BACK//BENIGN VLAD SKIN TRUNK [*INVALID FOR*08/11/2010 DERMATOFIBROMA///BENIGN VLAD SKIN ARM [D23.60] INVALID FOR*08/11/2010 Benign neoplasm of scalp and skin of neck [D23.*INVALID FOR*08/11/2010 Open wound site NOS [T14.8XXA] INVALID FOR*08/11/2010 Myalgia [M79.1] INVALID FOR*03/05/2013 Actinic Keratosis: Premalignant AK: R cheek fa*INVALID FOR* Inflamed Seborrheic Keratoses [L82.0] INVALID FOR*02/12/2012 Cutaneous skin tags: base neck and left axilla *INVALID FOR*02/12/2012 Intradermal nevus [D23.9] INVALID FOR*02/12/2012 Melanocytic nevi of trunk [D22.5] INVALID FOR*03/05/2013 Melanocytic nevus of upper extremity [D22.60] INVALID FOR*03/05/2013 Other seborrheic keratosis [L82.1] INVALID FOR*02/12/2012 Solar lentigines [L81.4] INVALID FOR*02/12/2012 Actinic skin damage [L57.8] INVALID FOR*02/12/2012 Pain in limb [M79.609] INVALID FOR*03/05/2013 Benign neoplasm of rectum and anal canal [D12.8*INVALID FOR* Pineal gland, 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] INVALID FOR* Pruritus [L29.9] INVALID FOR* Winter itch [L29.8] INVALID FOR* Xerosis cutis [L85.3] INVALID FOR* 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] INVALID FOR* Other seborrheic keratosis [L82.1] INVALID FOR* Melanocytic nevi of trunk [D22.5] INVALID FOR* Polo angioma [D18.01] INVALID FOR* Telangiectasia [I78.1] INVALID FOR* Solar lentigo [L81.4] INVALID FOR* Actinic skin damage [L57.8] INVALID FOR* Syncope [R55] INVALID FOR* Abnormal tilt table test [R94.09] INVALID FOR* Hypercholesterolemia [E78.00] INVALID FOR* Hypertension [I10] INVALID FOR*07/12/2016 Acute appendicitis with localized peritonitis [*INVALID FOR* SVT (supraventricular tachycardia) (HCC) [I47.1]INVALID FOR* Impaired fasting blood sugar [R73.01] Anxiety state, unspecified [F41.1] Sweating abnormality [L74.9] INVALID FOR* Overweight (BMI 25.0-29.9) [E66.3] INVALID FOR* Arthritis, multiple joint involvement [M12.9] INVALID FOR* Gastroesophageal reflux disease [K21.9] INVALID FOR* Anxiety [F41.9] INVALID FOR* Elevated TSH [R94.6] INVALID FOR* Dysthymia [F34.1] INVALID FOR* Other instructions from your clinician: Wellbutrin- take 1 tablet every day for 2 weeks then 1 tablet every other day for 2 weeks then discontinue medication Medications Discontinued During This Encounter buPROPion XL (WELLBUTRIN XL) 150 mg * 90 t* 3 09/02/2017 11/05/2017 Route: ORAL Sig: Take 1 tablet by mouth once daily. In the morning Disc: Reason for discontinue is not on file. Encounter Status:Closed by RODGER ARENAS DO on 11/05/17 CNCO Observed: 11/04/2017 Status: COMPLETED Source: HOLIDAY 12:00 AM [facility] REPOSITORY Letter Text [address] [address] Chichi Tejeda [facility] [place] [address] Clinic #: [id number] 11/04/2017 Dear Ms. Tejeda, I have received the results of your recent tests. Normal thyroid levels. Can discuss further at upcoming appointment. Janessa Avina APRN.[employer] Please do not hesitate to contact me with any questions. Sincerely, Janessa Avina APRN.[employer] electronically signed to expedite mailing FREE T4 Collected: 10/30/2017 Status: F Source: HOLIDAY 12:34 PM [facility] REPOSITORY TYPE CODE TESTS RESULT OUT OF RANGE REFERENCE UNITS LAB FT4 0.9-1.7 ng/dL Free T4 0.9 Performed By: #### FT4, T3, TSH #### [facility] [address] [address] T3 Collected: 10/30/2017 Status: F Source: [facility] 12:34 PM [facility] REPOSITORY TYPE CODE TESTS RESULT OUT OF RANGE REFERENCE UNITS LAB T3 79-165 ng/dL T3 93 Performed By: #### FT4, T3, TSH #### [facility] [address] [place], [place] [id number] TSH Collected: 10/30/2017 Status: F Source: HOLIDAY 12:34 PM [facility] REPOSITORY TYPE CODE TESTS RESULT OUT OF RANGE REFERENCE UNITS LAB TSH 0.400-5.500 uU/mL TSH 3.180 Performed By: #### FT4, T3, TSH #### [facility] [address] [address] PROGRESS Observed: 09/30/2017 Status: COMPLETED Source: HOLIDAY 11:43 AM [facility] REPOSITORY HNO ID: [id number] Author: Rodger Arenas Service: (none) Author Type: Physician Type: Progress Notes Filed: 09/30/2017 11:48 AM Note Text: CC: Chichi Tejeda is a 76 year old female who presents to the office for 1 month follow up HPI: Mood, was struggling recently with depressed mood and anxiousness at bedtime, Trouble falling and staying asleep. No SI or HI. Finding for the last 3-4 weeks she isn't finding the patricia from her hobbies that she used to enjoy. She was started on Wellbutrin 150 mg XL in the morning. She has been having some red itching hives on palms and arms for the last few days (since Saturday), started off and on a few weeks ago, admits to having a lot of anxiety recently due to 2 granddaughter's being , 1 that has pre eclampsia concerns and 1 that is due with 2nd child mid October (works at [employer] in [facility]). No SI or HI. Hasn't taken an Ativan recently ? HTN, has been overall controlled, no CP or dyspnea or LH/dizziness. Feeling well, hasn't been monitoring BLOOD PRESSURE at home recently. ? PAST MEDICAL HISTORY Diagnosis Date - Actinic Keratosis: Premalignant AK: R cheek face 03/19/2011 - Anxiety state, unspecified - Benign neoplasm of rectum and anal canal - Degenerative arthritis of knee, bilateral ortho Dr. 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 - L'SCOPE DX W/WO BRUSHINGS/WASHINGS 04/24/1976 Laparoscopy BPS - LAPAROSCOPIC CHOLEYCYSTECTOMY 09/21/1999 Cholecystectomy, lap - LAPAROSCOPY, SURGICAL, APPENDECTOMY 06-23-15 - S KIT KNEE ARTHOSCOPY CARDINAL 11/16/2011 left knee Current Outpatient Prescriptions: losartan (COZAAR) 50 mg tablet Take 1 tablet by mouth twice daily. LORazepam (ATIVAN) 0.5 mg tab Take 1-2 tablets by mouth three times daily as needed for up to 30 days. buPROPion XL (WELLBUTRIN XL) 150 mg 24 hr tablet Take 1 tablet by mouth once daily. In the morning COMPOUNDED PRESCRIPTION Tumeric Curcumin complex 500mg escitalopram oxalate (LEXAPRO) 20 mg tablet Take 1 tablet by mouth once daily. metoprolol tartrate, short acting, (LOPRESSOR) 25 mg tablet Take 1 tablet by mouth twice daily. COMPOUNDED PRESCRIPTION Magnesium 1 daily aspirin, enteric coated (ASPIRIN, ENTERIC COATED) 81 mg EC tablet Take 1 tablet by mouth once daily. COMPOUNDED PRESCRIPTION Vit d 3 1000 - daily therapeutic multivitamin ORAL tablet Take one(1) tablet daily. omega-3 fatty acids(FISH OIL 500 MG CAP) Take one(1) capsule daily. buPROPion (WELLBUTRIN) 100 mg tablet Take 1 tablet by mouth twice daily. Coenzyme Q10 100 mg ORAL Cap Take 1 capsule by mouth once daily. No current facility-administered medications for this visit. ALLERGIES Allergen Reactions - E-Mycin [Erythromyc* GI Upset - Mobic [Meloxicam] Other: See Comments Acid reflux - Norvasc [Amlodipine* Itching insomnia - Spironolactone Diarrhea - Spswjbu-Svf-Fqv Red* Other: See Comments Severe myalgias - Crestor [Rosuvastat* Intolerance Myalgia - Lipitor [Atorvastat* Intolerance Myalgia - Lisinopril Cough Social History Marital status: Spouse name: Savannah Years of education: Number of children: 3 Occupational History Occupation Employer Comment retired [employer] Social History Main Topics Smoking status: Former Smoker Packs/day: 0.00 Years: 5.00 Quit date: 07/08/1999 Smokeless status: Never Used Comment: Quit 1999 2-3 cig per day Alcohol use: Yes Comment: wine occasionallly Drug use: No Sexual activity: No Social History Narrative , Goes by Mariya Enjoys crocheting, quilting ROS: See HPI PE: BP 186/90 Pulse 64 Temp (Src) 97.4 (Left Tympanic) Resp 16 Wt 154 lb (69.9kg) Gen: AANDOX3, NAD, non-toxic appearing HEENT: PERRLA, EOMs intact b/l, nares without drainage, pharynx without erythema, exudate, lesions, or drainage. Uvula midline. Neck: No LAD, no thyromegaly, no meningismus. CV: RRR, no murmur Lungs: CTA b/l, no wheezing Skin: scattered hives on palms and forearms without signs of infection/excoriation No edema ASSESSMENT/PLAN: 1. Anxiety - ICD9: 300.00, ICD10: F41.9 (primary diagnosis) - change formulation of wellbutrin, if hives continue then am going to have to stop this medication and find alternative for her symptom control. - BUPROPION HCL 100 MG TABLET 2. Urticaria - ICD9: 708.9, ICD10: L50.9 - Likely allergic etiology discussed with patient. change formulation of wellbutrin, if hives continue then am going to have to stop this medication and find alternative for her symptom control. Also will change to free and clear detergent and softener options. - Follow up if symptoms persist or worsen. 3. Essential hypertension - ICD9: 401.9, ICD10: I10 - suboptimal control - Continue current medication(s) - Encouraged dietary sodium restriction/DASH diet - Recommended regular aerobic exercise. - Recommend home blood pressure monitoring, to bring results in on next visit - Goal of BP <130/80 - LOSARTAN 50 MG TABLET Rodger Arenas DO Return if no improvement. Follow up with Rodger Arenas DO. Discussed risks, benefits, alternatives, and potential side effects of medications. Patient/Guardian expressed understanding and agreed with the plan. See patient instructions. Rodger Arenas DO [address] [place] [address] CNOV Observed: 09/30/2017 Status: COMPLETED Source: HOLIDAY 10:40 AM [facility] REPOSITORY [facility] CHICHI [id number]) 1940 F Date Time Provider Department 09/30/17 10:40 AM [facility] During your visit today, we recorded the following information about you: Temperature Pulse Respiration Blood pressure 97.4 degrees 64/minute 16/minute 144/88 Weight 69.9 kg Rodger Khari Arenas, 09/30/2017 11:03 AM Signed ALL (or Purex) free and clear (white bottle) Roxane without scent/color (white bottle) Try taking Lorazepam if the hives are flared up to see if this helps Change to Wellbutrin 100 mg twice a day Rodger Arenas, DO 09/30/2017 11:48 AM Signed CC: Chichi Tejeda is a 76 year old female who presents to the office for 1 month follow up HPI: Mood, was struggling recently with depressed mood and anxiousness at bedtime, Trouble falling and staying asleep. No SI or HI. Finding for the last 3-4 weeks she isn't finding the patricia from her hobbies that she used to enjoy. She was started on Wellbutrin 150 mg XL in the morning. She has been having some red itching hives on palms and arms for the last few days (since Saturday), started off and on a few weeks ago, admits to having a lot of anxiety recently due to 2 granddaughter's being , 1 that has pre eclampsia concerns and 1 that is due with 2nd child mid October (works at [employer] in [facility];D). No SI or HI. Hasn't taken an Ativan recently ? HTN, has been overall controlled, no CP or dyspnea or LH/dizziness. Feeling well, hasn't been monitoring BLOOD PRESSURE at home recently. ? PAST MEDICAL HISTORY Diagnosis Date - Actinic Keratosis: Premalignant AK: R cheek face 03/19/2011 - Anxiety state, unspecified - Benign neoplasm of rectum and anal canal - Degenerative arthritis of knee, bilateral ortho Dr. 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 - L'SCOPE DX W/WO BRUSHINGS/WASHINGS 04/24/1976 Laparoscopy BPS - LAPAROSCOPIC CHOLEYCYSTECTOMY 09/21/1999 Cholecystectomy, lap - LAPAROSCOPY, SURGICAL, APPENDECTOMY 06-23-15 - S KIT KNEE ARTHOSCOPY CARDINAL 11/16/2011 left knee Current Outpatient Prescriptions: losartan (COZAAR) 50 mg tablet Take 1 tablet by mouth twice daily. LORazepam (ATIVAN) 0.5 mg tab Take 1-2 tablets by mouth three times daily as needed for up to 30 days. buPROPion XL (WELLBUTRIN XL) 150 mg 24 hr tablet Take 1 tablet by mouth once daily. In the morning COMPOUNDED PRESCRIPTION Tumeric Curcumin complex 500mg escitalopram oxalate (LEXAPRO) 20 mg tablet Take 1 tablet by mouth once daily. metoprolol tartrate, short acting, (LOPRESSOR) 25 mg tablet Take 1 tablet by mouth twice daily. COMPOUNDED PRESCRIPTION Magnesium 1 daily aspirin, enteric coated (ASPIRIN, ENTERIC COATED) 81 mg EC tablet Take 1 tablet by mouth once daily. COMPOUNDED PRESCRIPTION Vit d 3 1000 - daily therapeutic multivitamin ORAL tablet Take one(1) tablet daily. omega-3 fatty acids(FISH OIL 500 MG CAP) Take one(1) capsule daily. buPROPion (WELLBUTRIN) 100 mg tablet Take 1 tablet by mouth twice daily. Coenzyme Q10 100 mg ORAL Cap Take 1 capsule by mouth once daily. No current facility-administered medications for this visit. ALLERGIES Allergen Reactions - E-Mycin [Erythromyc* GI Upset - Mobic [Meloxicam] Other: See Comments Acid reflux - Norvasc [Amlodipine* Itching insomnia - Spironolactone Diarrhea - Xbavnml-Xjz-Tih Red* Other: See Comments Severe myalgias - Crestor [Rosuvastat* Intolerance Myalgia - Lipitor [Atorvastat* Intolerance Myalgia - Lisinopril Cough Social History Marital status: Spouse name: Savannah Years of education: Number of children: 3 Occupational History Occupation Employer Comment retired [employer] Social History Main Topics Smoking status: Former Smoker Packs/day: 0.00 Years: 5.00 Quit date: 07/08/1999 Smokeless status: Never Used Comment: Quit 1999 2-3 cig per day Alcohol use: Yes Comment: wine occasionallly Drug use: No Sexual activity: No Social History Narrative , Goes by Mariya Enjoys crocheting, quilting ROS: See HPI PE: BP 186/90 Pulse 64 Temp (Src) 97.4 (Left Tympanic) Resp 16 Wt 154 lb (69.9kg) Gen: AANDamp;OX3, NAD, non-toxic appearing HEENT: PERRLA, EOMs intact b/l, nares without drainage, pharynx without erythema, exudate, lesions, or drainage. Uvula midline. Neck: No LAD, no thyromegaly, no meningismus. CV: RRR, no murmur Lungs: CTA b/l, no wheezing Skin: scattered hives on palms and forearms without signs of infection/excoriation No edema ASSESSMENT/PLAN: 1. Anxiety - ICD9: 300.00, ICD10: F41.9 (primary diagnosis) - change formulation of wellbutrin, if hives continue then am going to have to stop this medication and find alternative for her symptom control. - BUPROPION HCL 100 MG TABLET 2. Urticaria - ICD9: 708.9, ICD10: L50.9 - Likely allergic etiology discussed with patient. change formulation of wellbutrin, if hives continue then am going to have to stop this medication and find alternative for her symptom control. Also will change to free and clear detergent and softener options. - Follow up if symptoms persist or worsen. 3. Essential hypertension - ICD9: 401.9, ICD10: I10 - suboptimal control - Continue current medication(s) - Encouraged dietary sodium restriction/DASH diet - Recommended regular aerobic exercise. - Recommend home blood pressure monitoring, to bring results in on next visit - Goal of BP ANDlt;130/80 - LOSARTAN 50 MG TABLET Rodger Arenas DO Return if no improvement. Follow up with Rodger Arenas DO. Discussed risks, benefits, alternatives, and potential side effects of medications. Patient/Guardian expressed understanding and agreed with the plan. See patient instructions. Rodger Arenas DO [address] [place] [address] Referring Provider: RODGER ARENAS [[id number]] Allergies As of Date: 09/30/2017 Noted Allergy Reaction E-MYCIN (ERYTHROMYCIN) 05/04/2005 8 - GI Upset MOBIC (MELOXICAM) 04/24/2016 14 - Other: See Comments Comments: Acid reflux NORVASC (AMLODIPINE BESYLATE) 03/02/2011 9 - Itching Comments: insomnia SPIRONOLACTONE 07/13/2016 6 - Diarrhea [id number]-FWV-[id number] REDUCTASE INHIBIT*09/28/2013 14 - Other: See Comments Comments: Severe myalgias CRESTOR (ROSUVASTATIN) 09/20/2009 5 - Intolerance Comments: Myalgia LIPITOR (ATORVASTATIN) 09/20/2009 5 - Intolerance Comments: Myalgia LISINOPRIL 02/24/2007 3 - Cough Date Reviewed: 09/02/2017 Reviewed by: Bernadine Ritter LPN - Fully Assessed Reason for Visit: Follow Up [171] Cmt: 1 month Derm Problem [33] Cmt: hives x 3 days Reason For Visit History Recorded Primary Visit Diagnosis:Anxiety [F41.9] Other Visit Diagnoses:Urticaria [L50.9] Essential hypertension [I10] Order(s):losartan (COZAAR) 50 mg tabletTake 1 tablet by mouth twice daily.Disp: 180 tabletRfl: 3 buPROPion (WELLBUTRIN) 100 mg tabletTake 1 tablet by mouth twice daily.Disp: 180 tabletRfl: 3 Prescriptions as of 09/30/2017 Sig: LOSARTAN 50 MG TABLET Take 1 tablet by mouth twice * LORAZEPAM 0.5 MG TABLET Take 1-2 tablets by mouth thr* BUPROPION XL 150 MG TAB Take 1 tablet by mouth once d* COMPOUNDED PRESCRIPTION Tumeric Curcumin complex 500mg ESCITALOPRAM 20 MG TABLET Take 1 tablet by mouth once d* METOPROLOL TARTRATE 25 MG TAB* Take 1 tablet by mouth twice * COMPOUNDED PRESCRIPTION Magnesium 1 daily ASPIRIN 81 MG TABLET,DELAYED * Take 1 tablet by mouth once d* COMPOUNDED PRESCRIPTION Vit d 3 1000 - daily THERAPEUTIC MULTIVITAMIN TABL* Take one(1) tablet daily. FISH OIL 500 MG CAPSULE Take one(1) capsule daily. BUPROPION HCL 100 MG TABLET Take 1 tablet by mouth twice * COENZYME Q10 100 MG CAPSULE Take 1 capsule by mouth once * Problem List As Of Date 09/30/2017 Noted Resolved DEPRESSIVE DISORDER NEC [F32.9] Anxiety state [F41.1] Esophageal reflux [K21.9] 02/12/2012 Irritable bowel syndrome [K58.9] BONE AND CARTILAGE DIS NOS [M89.9, M94.9] More... DIFFUS CYSTIC MASTOPATHY [N60.19] More... Essential hypertension [I10] INVALID FOR* HYPERLIPIDEMIA NEC/NOS [E78.5] INVALID FOR* HYPERGLYCEMIA [R79.89] INVALID FOR*03/05/2013 Urticaria, unspecified [L50.9] INVALID FOR*02/12/2012 Unspecified pruritic disorder [L29.9] INVALID FOR*02/12/2012 Unspecified hypertrophic and atrophic condition*INVALID FOR*08/11/2010 Other chronic dermatitis due to solar radiation*INVALID FOR*08/11/2010 NEVUS RIGHT UPPER BACK//BENIGN VLAD SKIN TRUNK [*INVALID FOR*08/11/2010 DERMATOFIBROMA///BENIGN VLAD SKIN ARM [D23.60] INVALID FOR*08/11/2010 Benign neoplasm of scalp and skin of neck [D23.*INVALID FOR*08/11/2010 Open wound site NOS [T14.8XXA] INVALID FOR*08/11/2010 Myalgia [M79.1] INVALID FOR*03/05/2013 Actinic Keratosis: Premalignant AK: R cheek fa*INVALID FOR* Inflamed Seborrheic Keratoses [L82.0] INVALID FOR*02/12/2012 Cutaneous skin tags: base neck and left axilla *INVALID FOR*02/12/2012 Intradermal nevus [D23.9] INVALID FOR*02/12/2012 Melanocytic nevi of trunk [D22.5] INVALID FOR*03/05/2013 Melanocytic nevus of upper extremity [D22.60] INVALID FOR*03/05/2013 Other seborrheic keratosis [L82.1] INVALID FOR*02/12/2012 Solar lentigines [L81.4] INVALID FOR*02/12/2012 Actinic skin damage [L57.8] INVALID FOR*02/12/2012 Pain in limb [M79.609] INVALID FOR*03/05/2013 Benign neoplasm of rectum and anal canal [D12.8*INVALID FOR* Pineal gland, 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] INVALID FOR* Pruritus [L29.9] INVALID FOR* Winter itch [L29.8] INVALID FOR* Xerosis cutis [L85.3] INVALID FOR* 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] INVALID FOR* Other seborrheic keratosis [L82.1] INVALID FOR* Melanocytic nevi of trunk [D22.5] INVALID FOR* Polo angioma [D18.01] INVALID FOR* Telangiectasia [I78.1] INVALID FOR* Solar lentigo [L81.4] INVALID FOR* Actinic skin damage [L57.8] INVALID FOR* Syncope [R55] INVALID FOR* Abnormal tilt table test [R94.09] INVALID FOR* Hypercholesterolemia [E78.00] INVALID FOR* Hypertension [I10] INVALID FOR*07/12/2016 Acute appendicitis with localized peritonitis [*INVALID FOR* SVT (supraventricular tachycardia) (HCC) [I47.1]INVALID FOR* Impaired fasting blood sugar [R73.01] Anxiety state, unspecified [F41.1] Sweating abnormality [L74.9] INVALID FOR* Overweight (BMI 25.0-29.9) [E66.3] INVALID FOR* Arthritis, multiple joint involvement [M12.9] INVALID FOR* Gastroesophageal reflux disease [K21.9] INVALID FOR* Anxiety [F41.9] INVALID FOR* Elevated TSH [R94.6] INVALID FOR* Dysthymia [F34.1] INVALID FOR* Other instructions from your clinician: ALL (or Purex) free and clear (white bottle) Roxane without scent/color (white bottle) Try taking Lorazepam if the hives are flared up to see if this helps Change to Wellbutrin 100 mg twice a day Prescriptions ordered this encounter Disp Refills Start End LOSARTAN 50 MG TABLET 180 * 3 09/30/2017 12/29/2017 Route: ORAL Sig: Take 1 tablet by mouth twice daily. BUPROPION HCL 100 MG TABLET 180 * 3 09/30/2017 Route: ORAL Sig: Take 1 tablet by mouth twice daily. Medications Discontinued During This Encounter losartan (COZAAR) 50 mg tablet 60 t* 3 05/23/2017 09/30/2017 Cmt: This prescription was filled on 05/21/2017. Any refills authorized will be placed on file. Sig: Take 1 tablet by mouth twice daily. Disc: Reason for discontinue is not on file. losartan (COZAAR) 50 mg tablet 180 * 3 01/22/2017 09/30/2017 Route: ORAL Sig: Take 1 tablet by mouth twice daily. Disc: Reason for discontinue is not on file. Encounter Status:Closed by RODGER ARENAS DO on 09/30/17 PROGRESS Observed: 09/02/2017 Status: COMPLETED Source: HOLIDAY 2:32 PM [facility] REPOSITORY HNO ID: [id number] Author: Rodger Arenas Service: (none) Author Type: Physician Type: Progress Notes Filed: 09/02/2017 2:43 PM Note Text: CC: Chichi Tejeda is a 76 year old female who presents to the office for mood HPI: Mood, struggling recently with depressed mood and anxiousness at bedtime, has been having to use Ativan at bedtime. Trouble falling and staying asleep. No SI or HI. Finding for the last 3-4 weeks she isn't finding the patricia from her hobbies that she used to enjoy. HTN, has been overall controlled, no CP or dyspnea or LH/dizziness. PAST MEDICAL HISTORY Diagnosis Date - Actinic Keratosis: Premalignant AK: R cheek face 03/19/2011 - Anxiety state, unspecified - Benign neoplasm of rectum and anal canal - Degenerative arthritis of knee, bilateral ortho Dr. 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 - L'SCOPE DX W/WO BRUSHINGS/WASHINGS 04/24/1976 Laparoscopy BPS - LAPAROSCOPIC CHOLEYCYSTECTOMY 09/21/1999 Cholecystectomy, lap - LAPAROSCOPY, SURGICAL, APPENDECTOMY --15 - S KIT KNEE ARTHOSCOPY CARDINAL 11/16/2011 left knee Current Outpatient Prescriptions: COMPOUNDED PRESCRIPTION Tumeric Curcumin complex 500mg losartan (COZAAR) 50 mg tablet Take 1 tablet by mouth twice daily. losartan (COZAAR) 50 mg tablet Take 1 tablet by mouth twice daily. escitalopram oxalate (LEXAPRO) 20 mg tablet Take 1 tablet by mouth once daily. COMPOUNDED PRESCRIPTION Magnesium 1 daily aspirin, enteric coated (ASPIRIN, ENTERIC COATED) 81 mg EC tablet Take 1 tablet by mouth once daily. COMPOUNDED PRESCRIPTION Vit d 3 1000 - daily therapeutic multivitamin ORAL tablet Take one(1) tablet daily. omega-3 fatty acids(FISH OIL 500 MG CAP) Take one(1) capsule daily. LORazepam (ATIVAN) 0.5 mg tab Take 1-2 tablets by mouth three times daily as needed for up to 30 days. buPROPion XL (WELLBUTRIN XL) 150 mg 24 hr tablet Take 1 tablet by mouth once daily. In the morning metoprolol tartrate, short acting, (LOPRESSOR) 25 mg tablet Take 1 tablet by mouth twice daily. Coenzyme Q10 100 mg ORAL Cap Take 1 capsule by mouth once daily. No current facility-administered medications for this visit. ALLERGIES Allergen Reactions - E-Mycin [Erythromyc* GI Upset - Mobic [Meloxicam] Other: See Comments Acid reflux - Norvasc [Amlodipine* Itching insomnia - Spironolactone Diarrhea - Dbqhinp-Vyz-Hro Red* Other: See Comments Severe myalgias - Crestor [Rosuvastat* Intolerance Myalgia - Lipitor [Atorvastat* Intolerance Myalgia - Lisinopril Cough Social History Marital status: Spouse name: Savannah Years of education: Number of children: 3 Occupational History Occupation Employer Comment retired [employer] Social History Main Topics Smoking status: Former Smoker Packs/day: 0.00 Years: 5.00 Quit date: 07/08/1999 Smokeless status: Never Used Comment: Quit 1999 2-3 cig per day Alcohol use: Yes Comment: wine occasionallly Drug use: No Sexual activity: No Social History Narrative , Goes by Mariya Enjoys crocheting, quilting ROS: See HPI PE: BP 112/82 Pulse 64 Temp (Src) 96.6 (Left Tympanic) Resp 16 Wt 154 lb (69.9kg) Gen: AANDOX3, NAD, non-toxic appearing, tearful, no acute distress HEENT: PERRLA, EOMs intact b/l, nares without drainage, pharynx without erythema, exudate, lesions, or drainage. Uvula midline. Neck: No LAD, no thyromegaly, no meningismus. CV: RRR, no murmur Lungs: CTA b/l, no wheezing Skin: No rashes, lesions, or wounds on exposed skin. ASSESSMENT/PLAN: 1. Dysthymia - ICD9: 300.4, ICD10: F34.1 (primary diagnosis) - Continue Lexapro- change to bedtime dose, Start on Wellbutrin in the AM, f/u in office in 1 month. Aware of possible SE of Wellbutrin 2. Anxiety - ICD9: 300.00, ICD10: F41.9 - Continue Lexapro- change to bedtime dose, Start on Wellbutrin in the AM, f/u in office in 1 month. Aware of possible SE of Wellbutrin - LORAZEPAM 0.5 MG TABLET - BUPROPION XL 150 MG TAB 3. Elevated TSH - ICD9: 794.5, ICD10: R94.6 -recheck labs 2 mths. - TSH BLD - T4 FREE/FREE THYROX - T3 BLD 4. Essential hypertension - ICD9: 401.9, ICD10: I10 - good control - Encouraged dietary sodium restriction/DASH diet - Recommended regular aerobic exercise. - Recommend home blood pressure monitoring, to bring results in on next visit - Goal of BP <130/80 Rodger Arenas DO Return if no improvement. Follow up with Rodger Arenas DO. Discussed risks, benefits, alternatives, and potential side effects of medications. Patient/Guardian expressed understanding and agreed with the plan. See patient instructions. Rodger Arenas DO [address] [place] [address] ALLERGIES ALLERGIES DATE TYPE / NAME / CODE REACTION SEVERITY SOURCE CODE 06/12/2018 Drug atorvastatin Pain in joints Unknown [place] Allergy/41 calcium/[id number](R [facility]25[facility] Repository 06/12/2018 Drug rosuvastatin Pain in joints Unknown [place] Allergy/41 calcium/[id number](R [facility] 1305846( [facility]) Repository 06/12/2018 Drug Vrebtdo-Yvo-Ztm MYALGIAS SV [place] Allergy/41 Reductase Community 0781331( Inhibitor/[id number] [facility]) (RXNORM) Repository 06/12/2018 Drug lisinopril/[id number] Other MO [place] Allergy/41 8(RXNORM) Community 1486657([facility]) Repository 06/12/2018 Drug spironolactone/F0060 Diarrhea SV [place] Allergy/41 97274(RXNORM) Community 0861736([facility]) Repository 06/12/2018 Drug erythromycin Upset Stomach Unknown [place] Allergy/41 base/[id number](RXNO Community 4535696([facility]) [facility]) Repository 06/12/2018 Drug amlodipine/[id number] Unknown Unknown [place] Allergy/41 2(RXNORM) Community 9919479([facility]) Repository 06/12/2018 Drug bupropion/[id number] Hives SV [place] Allergy/41 (RXNORM) Community 4989353([facility]) Repository 06/12/2018 Drug meloxicam/[id number] cough Unknown [place] Allergy/41 (RXNORM) Community 0009842([facility]) Repository 01/13/2018 DRUG BUPROPION HCL HIVES [facility] Main 4432083([facility]) Repository 07/13/2016 DRUG SPIRONOLACTONE DIARRHEA [facility] Main 4349501([facility]) Repository 04/24/2016 DRUG MELOXICAM OTHER: SEE C [facility]/41 Clinic Main 3535589([facility]) Repository 09/28/2013 Drug TSBTESM-IDV-MNT OTHER: SEE C [place] Class/4195 REDUCTASE INHIBITORS Clinic Main [address]([facility] [place] [facility]) Repository 03/02/2011 DRUG AMLODIPINE BESYLATE ITCHING [place] INGRED/41 Clinic Main 2167065([facility]) Repository 09/20/2009 DRUG [facility]STATIN [facility]OLERANCE [facility] [place] [facility] 5019578[facility] [place] [facility] Repository 09/20/2009 DRUG ATORVASTATIN INTOLERANCE [place] [address] Clinic Main 0285796([facility]) Repository 02/24/2007 DRUG LISINOPRIL COUGH [place] [address] Clinic Main 4416400([facility]) Repository 05/04/2005 DRUG/25803 ERYTHROMYCIN GI UPSET [place] 1003([facility] Main D CT) [place] Repository ENCOUNTERS ENCOUNTERS ADMIT/DISCHARGE ACCOUNT ADMITTING ENCOUNTER LOCATION SOURCE NUMBER CLASS 07/22/2018/07/23/19 [id number] Ambulatory [address] Repository 07/18/2018/07/18/19 [id number] Ambulatory [address] Repository 06/24/2018 [id number] Ambulatory BMSBuilding:Rj Carlos MS.CF.[facility] Repository 06/24/2018 [id number] Ambulatory [facility] ing:[facility] Repository 06/12/2018/06/12/20 [id number] Ambulatory BMSBuilding:Rj Carlos 19 MS.[facility] Repository 06/11/2018 [id number] Ambulatory BMSBuilding:Rj Carlos MS.[facility] Repository 05/28/2018/05/29/20 [id number] Kumar, Inpatient [facility] Florence Garcia [facility] ing:PN3Cqmm: Repository OQ216Uqj: 1 05/28/2018 [id number] Kumar, [facility] Rep[facility] 05/28/2018 [id number] Kumar Amb[facility] Repository 05/21/2018/05/22/20 [id number] Ambulatory [address] Repository 05/16/2018/05/19/20 [id number] Ambulatory [address] Repository 05/12/2018/05/13/20 [id number] Ambulatory [address] Repository 01/14/2018 [id number] Ambulatory [place] C[place] [facility] ing:[facility] Repository 01/13/2018/01/15/20 [id number] Ambulatory [address] Repository 01/10/2018/01/11/20 [id number] Ambulatory [address] Repository 11/05/2017/11/07/19 [id number] Ambulatory [address] Repository 10/30/2017 [id number] Ambulatory [facility] Repository 09/30/2017/10/02/19 [id number] Ambulatory [address] Repository 09/02/2017/09/07/19 [id number] Ambulatory [address] Repository PAYERS PAYERS ENCOUNTER GUARANTOR PAYER SUBSCRIBER SOURCE 06/24/2018 CHICHI L Primary CHICHI L [place] [id number] Insurance:MEDICARE WINKLERDOB: [facility] [place]TRY PART [place] BPolicy [place]: [id number] Repository 28531Xzv: (330) Date:2018-06-13 [phone] () 06/24/2018 Secondary CHICHI L [place] Insurance:HUMANA WINKLERDOB: [facility] [id number] Hospital Number: Repository [id number] Date:6614-28-92[address] [address]AO: 06/24/2018 Tertiary NOT GIVENUNK [place] Insurance:SELF PAY [facility] Number: Effective Repository Date:2018-06-24 06/24/2018 CHICHI L Primary CHICHI L [place] [id number] Insurance:MEDICARE WINKLERDOB: [facility] COUNTRY PART [place] olicy Number: [id number] [id number] Repository 94342Iph: (330) Date:2018-06-13 [phone] () 06/24/2018 Secondary CHICHI L [place] Insurance:HUMANA WINKLERDOB: [facility] [id number] Hospital Number: Repository [id number] Date:1526-11-02[address] [address]YK: 06/24/2018 Tertiary NOT GIVENUNK [place] Insurance:SELF PAY [facility] Number: Effective Repository Date:2018-06-13 06/12/2018 CHICHI L Primary CHICHI L [place] [id number] Insurance:MEDICARE WINKLERDOB: Community [place] PART A BPolicy Number: [id number], [place] [id number] Repository 32337Txl: (978) Date:2018-05-16 [phone] () 06/12/2018 Secondary CHICHI L [place] Insurance:HUMANA WINKLERDOB: Community [facility] [id number] Hospital Number: Repository [id number] Date:9886-24-21YI [address] [address]ZA: 06/12/2018 Tertiary NOT GIVENUNK [place] Insurance:SELF PAY [facility] Number: Effective Repository Date:2018-06-12 06/11/2018 CHICHI L Primary CHICHI L [place] [id number] Insurance:MEDICARE WINKLERDOB: Community [place] PART [place] BPolicy Number: [id number] [id number] Repository 89[address]Zsb: (106) Date:2018-06-11 [phone] () 06/11/2018 Secondary CHICHI L [place] Insurance:HUMANA WINKLERDOB: [facility] [id number] Hospital Number: Repository [id number] Date:3512-52-54PY[address] [address]OO: 06/11/2018 Tertiary NOT GIVENUNK [place] Insurance:SELF PAY [facility] Number: Effective Repository Date:2018-06-11 05/28/2018 CHICHI L Primary CHICHI L [place] [id number] Insurance:MEDICARE WINKLERDOB: Community [place] PART [place] BPolicy Number: [id number], [place] [id number] Repository 38[address]Nkf: (330) Date:2018-05-08 [phone] () 05/28/2018 Secondary CHICHI L [place] Insurance:HUMANA WINKLERDOB: Community COMMERCIALPolicy [id number] Hospital Number: Repository [id number] Date:3470-24-79UN[address] [address]KO: 05/28/2018 Tertiary NOT GIVENUNK [place] Insurance:SELF PAY [facility] Number: Effective Repository Date:2018-05-08 05/28/2018 CHICHI L Primary CHICHI L [place] [id number] Insurance:MEDICARE WINKLERDOB: Community [place] PART [place] BPolicy Number: [id number], [place] [id number] Repository [address]Btl: 330) Date:[phone] () 05/28/2018 Secondary CHICHI L [place] Insurance:HUMANA WINKLERDOB: [facility] [id number] Hospital Number: Repository [id number] Date:3978-79-62KM[address] [address]RS: 05/28/2018 Tertiary NOT GIVENUNK [place] Insurance:SELF PAY [facility] Hospital Number: Effective Repository Date:2018-05-28 05/28/2018 CHICHI L Primary CHICHI L [place] [id number] Insurance:MEDICARE WINKLERDOB: Community COUNTRY PART [place] BPolicy Number: [id number], [place] [id number] Repository [address]Sjv: 330) Date:2018-05-08 [phone] () 05/28/2018 Secondary CHICHI L [place] Insurance:HUMANA WINKLERDOB: [facility] [id number] Hospital Number: Repository [id number] Date:2173-93-31GA [address] [address]UW: 05/28/2018 Tertiary NOT GIVENUNK [place] Insurance:SELF PAY [facility] Number: Effective Repository Date:2018-05-28 01/14/2018 Chichi L Primary Chichi L [place] [id number] Insurance:MEDICARE WinklerDOB: Community [place] PART A BPolicy Number: [id number] [id number] Repository [address]Hbu: (330) Date:2018-01-14 [phone] () 01/14/2018 Secondary Chichi L [place] Insurance:HUMANA WinklerDOB: Community COMMERCIALPoly [id number] Hospital Number: Repository [id number] Date:3736-90-28CD[address] [address]LL: 01/14/2018 Tertiary NOT GIVENUNK [place] Insurance:SELF PAY [facility] Hospital Number: Effective Repository Date:2018-01-14
== END ==
PROVIDERS: Family Provider Student in an Organized Health Care Education/Training Program; PCP Student in an Organized Health Care Education/Training Program; Referring Provider Internal Medicine Cardiovascular Disease; Visit Provider Internal Medicine Cardiovascular Disease
DX: R55 Syncope and collapse (principal); I47.1 Supraventricular tachycardia; I10 Essential (primary) hypertension
CPT/HCPCS: 93306

== ENCOUNTER 2018-11-22 05:42 | Observation (INO) | payer MEDICARE, OTHER, SELFPAY ==
[2018-09-25 15:14] VITALS: BMI 29.2
[2018-11-22] VITALS (9 sets, daily range): BP systolic 127–222; BP diastolic 59–91; PULSE 51–72; RESP 16–18; TEMP 36.6–36.8; O2SAT 93–99; BMI 28.8; BMI 29.0; BMI 29.1
--- NOTE | 2018-11-22 05:50 | EKG12_ITS ---
Test Reason : CP Blood Pressure : / mmHG Vent. Rate : 054 BPM Atrial Rate : 054 BPM P-R Int : 190 ms QRS Dur : 078 ms QT Int : 446 ms P-R-T Axes : 031 -35 038 degrees QTc Int : 422 ms Sinus bradycardia Left axis deviation Septal infarct , age undetermined Abnormal ECG Confirmed by MISTY LORENZ, SARAH ([id number]), staff editor JUAN PABLO MICHEL ([id number]) on 11/24/2018 3:58:02 PM Referred By: JAMIE Confirmed By:SARAH JAY MD
--- NOTE | 2018-11-22 05:50 | RAD_ITS ---
HISTORY: Chest Pain EXAM:XR Chest 1 View portable COMPARISON: None FINDINGS: EKG leads in place. Shallow inspiration. Normal heart size. Bibasilar minor subsegmental atelectasis or scarring. Minor blunting of the right costophrenic angle. No vascular congestion or pulmonary consolidation. No pneumothorax. Atherosclerotic thoracic aorta. RAD/Chest 1 View (Portable) IMPRESSION: 1. Limited inspiration with bibasilar minor subsegmental atelectasis or scarring. 2. No evidence of CHF or pneumonia. at 0724 Reported and signed by: Stephen Chung MD Electronically Signed: Stephen Chung, at 7:22 EDT Tel , Service support ,
[2018-11-22] MEDS: Nitroglycerin SL (ED/IMG/CATH) 0.4 MG TABLET SUBLINGUAL (05:59)
[2018-11-22] MEDS: Aspirin 81 MG TAB.CHEW 324 MG PO (05:59)
[2018-11-22 06:13] LABS: Absolute Lymphocyte Count 2.65 X10^3/ul (0.83-4.51); Absolute Neutrophil Count 3.4 X10^3/uL (2.0-7.7); Basophil# 0.04 X10^3/uL; Basophil% 0.6 % (0-1); Eosinophil# 0.33 X10^3/uL; Eosinophils% 4.8 % (0-5); Hematocrit 45.6 % (37-47); Lymphocyte # 2.65 X10^3/ul (4.0); Lymphocyte % 38.9 % (19-41); Mean Corp Hgb Conc 32.9 g/gl (32-36); Mean Corpuscular Hgb 29.8 pg (27.0-32.0); Mean Corpuscular Volume 90.5 fL (81-99); Monocyte# 0.37 X10^3/uL; Monocyte% 5.4 % (0-10); Platelet Count 203 K/mm3 (150-450); RBC Distribution Width CV 14.8 % (11.6-14.6); RBC Distribution Width SD 48.8 fl (35.1-43.9); Red Blood Count 5.04 M/mm3 (4.2-5.4); White Blood Count 6.8 K/mm3 (4.4-11.0)
[2018-11-22 06:19] LABS: D-Dimer Quantitative (DVT/PE) < 0.27 FEU/ug/m (0.27-0.49)
[2018-11-22 06:20] LABS: POSITIVE COUNT NO; POSITIVE DIFFERENTIAL NO; POSITIVE MORPHOLOGY NO
[2018-11-22 06:24] LABS: Anion Gap 6 (5-15); BUN 16 mg/dL (7-18); BUN/Creat Ratio 18.6 RATIO (10-20); Calcium,Total 9.5 mg/dL (8.5-10.1); Chloride 108 mmol/L (98-107); Creatinine, Serum 0.86 mg/dL (0.55-1.02); EST Glomerular Filtration Rate 68 mL/min (>60); Est Glom Filt Rate - Afr Amer 82 mL/min (>60); Estimated Creatinine Clearance 44.02 ml/min; Glucose 115 mg/dL (74-106); Potassium 4.5 mmol/L (3.5-5.1); Sodium Level 141 mmol/L (136-145)
--- NOTE | 2018-11-22 06:51 | ED.VISSUMM ---
- ER Visit Summary Date of Service: 11/22/18 Chief Complaint: [] History of Present Illness: The patient is a 77 F [chest pain chest pain started around 4:45 AM and woke her from sleep. Patient describes a tightness across her chest that radiates into both shoulders. She denies any nausea or vomiting. She denies shortness of breath. She denies diaphoresis. Patient does have a history of hypertension patient does have history of high cholesterol as well as history of SVT. Patient is never had coronary artery disease diagnosed. He denies recent travel or surgery. She denies recent fever or illness.] Physical Examination: [HEENT-PERRLA, EOMI. Cranial nerves II through XII grossly intact. TMs clear. Mucous membranes moist. No adenopathy. Cardiovascular-regular rate and rhythm without murmur or ectopy Lungs-clear to auscultation, chest wall stable without crepitus or subcu emphysema Abdomen-normoactive bowel sounds, soft, nontender, no rebound or rigidity, no peritoneal signs. Extremities-intact ?4, normal range of motion, normal pulses, atraumatic] Test Results: [EKG obtained on arrival showed a sinus rhythm with a ventricular rate of 54 bpm with old septal infarct. CBC with differential was normal. Chemistries unremarkable. Troponin is less than 0.015. Chest x-ray showed nothing acute.] Emergency Department Course and Treatment: [Patient received aspirin on arrival and she was given 1 sublingual nitro which caused her to become severely bradycardic and presyncopal. Symptoms were covered quickly.] Treatment Plan: [Admit for further work-up and evaluation of her chest pain.] Disposition: [Admit] Impression: [Chest pain-rule out acute current syndrome] This note was generated with [employer] dictation software. It may contain incorrect words, spelling, and punctuation that were not noted in review of the chart prior to signing ED Disposition - Plan for ED Patient: Referrals: Rodger Thornton DO [Primary Care Provider] -
--- NOTE | 2018-11-22 07:05 | ED.RN ---
BEDSIDE REPORT GIVEN TO JARAD OLIVARES
--- NOTE | 2018-11-22 08:41 | PCM.HP.STD ---
Problem List (1) SVT (supraventricular tachycardia) Status: Acute (2) Essential hypertension Status: Chronic (3) Dyslipidemia Status: Chronic (4) BPPV (benign paroxysmal positional vertigo) Status: Chronic (5) Chest pain Status: Acute History of Present Illness Date of Admission: 11/22/18 Chief Complaint: Chest pain The patient is a 77 year old F with PMH as below who has had a several hour history of chest pain. She woke up from sleep with chest pain that radiated to her shoulder. She denies any shortness of breath lightheadedness or dizziness with this episode however she did become diaphoretic. She has never had chest pain like this before either at rest or with activity. And nothing made his pain go away. She presented to the ER and was found to have normal sinus rhythm on EKG which was nonischemic as well as a normal initial troponin. He states she has had a stress test in the past which was normal, and she had an echo in June 2018 with stage I diastolic dysfunction as well as an EF of 65% and a right ventricular systolic pressure of 35 mmHg Past Medical History Past Medical History (Chronic Problems): Chronic Problems (Last Reviewed 06/12/18 @ 15:52 by Chary Hansen) Essential hypertension (Chronic) Dyslipidemia (Chronic) BPPV (benign paroxysmal positional vertigo) (Chronic) Medical History: Medical History (Last Reviewed 06/12/18 @ 15:52 by Chary Hansen) SVT (supraventricular tachycardia) (Acute) I47.1 Essential hypertension (Chronic) I10 Dyslipidemia (Chronic) E78.5 BPPV (benign paroxysmal positional vertigo) (Chronic) H81.10 Neurogenic syncope 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 + Tilt Table 2014 GERD (gastroesophageal reflux disease) K21.9 IBS (irritable bowel syndrome) K58.9 Allergies bupropion [From Wellbutrin] Allergy (Severe, Verified 11/22/18 05:46) Hives atorvastatin calcium [From Lipitor] Allergy (Verified 11/22/18 05:46) Pain in joints erythromycin base [Erythromycin Base] Allergy (Verified 11/22/18 05:46) Upset Stomach nitroglycerin Allergy (Verified 11/22/18 06:12) Other rosuvastatin calcium [From Crestor] Allergy (Verified 11/22/18 05:46) Pain in joints spironolactone Adverse Reaction (Severe, Verified 11/22/18 05:46) Diarrhea Zolisyk-Pyc-Tlz Reductase Inhibitor Adverse Reaction (Severe, Verified 11/22/18 05:46) myalgias lisinopril Adverse Reaction (Intermediate, Verified 11/22/18 05:46) Other COUGH amlodipine [From Norvas] Adverse Reaction (Verified 11/22/18 05:46) Unknown meloxicam [From [facility]] Adverse Reaction (Verified 11/22/18 05:46) cough Home Medications: Ambulatory Orders Medication Instructions Recorded Cholecalciferol (Vitamin D3) 1,000 unit PO DAILY 03/11/14 [D3-2000] Multivit-Min/FA/Lycopene/Lut 1 ea PO DAILY 03/11/14 [Centrum Silver Tablet] [place]-3 Fatty Acids/Fish Oil 1 ea PO QHS 05/19/18 [[place] 3 1,000 mg Softgel] aspirin 81 mg tablet,delayed 81 mg PO DAILY 06/11/18 release losartan 50 mg tablet 50 mg PO BID tab 06/11/18 amlodipine 2.5 mg tablet 2.5 mg PO DAILY #30 tab 06/12/18 lorazepam 0.5 mg tablet 0.5 mg PO TID PRN tab 06/12/18 metoprolol tartrate 50 mg tablet 50 mg PO BID tab 06/12/18 escitalopram 20 mg tablet 30 mg PO DAILY tab 09/25/18 Surgical History: Surgical History (Last Reviewed 09/25/18 @ 15:22 by Jessica Martinez) History of appendectomy Z90.49 History of arthroscopy of left knee Z98.890 History of cholecystectomy Z90.49 Status post left knee replacement Onset Date: ~05/2018 Z96.652 Smoking Status: Former smoker Tobacco Use: Cigarettes Alcohol: None Drugs: None - *Family History Maternal Family History: Family History (Last Reviewed 09/25/18 @ 15:22 by Jessica Martienz) Mother Hypertension Heart disease Father Heart disease Alzheimers disease Review of Systems Constitutional: Denies: Chills, Fever, Weight Change HEENT: Denies: Head Aches, Sinus Congestion, Sinus Drainage Cardiovascular: Reports: Chest Pain. Denies: Palpitations Respiratory: Denies: Cough, Shortness of breath at rest, Sputum production Gastrointestinal: Denies: Abdominal Pain, Nausea, Vomiting Genitourinary: Denies: Dysuria Musculoskeletal: Denies: Joint Pain, Joint Tenderness Skin: Denies: Rash, Wounds Neurological: Denies: Numbness, Tingling, Focal weakness Psychiatric: Denies: Anxiety, Depression Hematologic/ Lymphatic: Denies: Easy Bruising, Easy Bleeding VTE Information - Inpt Only VTE Present on Admission: No Patient Problems: Active and Suspected Problems (Last Reviewed 06/12/18 @ 15:52 by Chary Hansen) Chest pain (Acute) - Physical Exam General: Alert, Oriented x3, Cooperative, No apparent distress HEENT: Atraumatic, PERRLA, EOMI, Normocephalic Oral: Moist Mucosa Neck: Supple, No JVD Lungs: Clear to auscultation, Normal air movement, No rhonchi, No wheeze, No rales Cardiovascular: Regular rate, Regular Rhythm, Normal S1, Normal S2, No murmurs Abdomen: Soft, Non Tender, Non-Distended, No Hepato-splenomegaly Extremities: No edema, Capillary Refill Less than 3 Seconds Skin: No rashes, No breakdown Neurological: Neuro grossly intact, Sensory exam intact to light touch and pain Psych/Mental Status: Normal Affect, Appropriate Vital Signs Temp Pulse Resp BP Pulse Ox 98.1 F 64 18 149/81 H 99 11/22/18 08:36 11/22/18 08:39 11/22/18 08:39 11/22/18 08:39 11/22/18 08:39 Oxygen Flow Rate (L/min) 2 Oxygen Delivery Method Room Air Weight: 157 lb 6.561 oz Body Mass Index (BMI) 28.8 Laboratory Tests Past 24 Hrs 11/22/18 11/22/18 11/22/18 05:45 05:45 05:45 WBC 6.8 RBC 5.04 Hgb 15.0 Hct 45.6 MCV 90.5 MCH 29.8 MCHC 32.9 RDW 14.8 H RDW Differential 48.8 H Plt Count 203 MPV 11.0 Immature Gran % (Auto) 0.300 Neut % (Auto) 50.0 Lymph % (Auto) 38.9 [place] % (Auto) 5.4 Eos % (Auto) 4.8 Baso % (Auto) 0.6 Absolute Neuts (auto) 3.4 Absolute Lymphs (auto) 2.65 Total Counted Not Reportable D-Dimer Quant (PE/DVT) < 0.27 L Sodium 141 Potassium 4.5 Chloride 108 H Carbon Dioxide 27.0 Anion Gap 6 BUN 16 Creatinine 0.86 Estim Creat Clear Calc 44.02 Est GFR (MDRD) Af Amer 82 Est GFR (MDRD) Non-Af 68 BUN/Creatinine Ratio 18.6 Glucose 115 H Calcium 9.5 Troponin I < 0.015 Assessment/Plan All Active Problems (Last Reviewed 06/12/18 @ 15:52 by Chary Hansen) Chest pain (Acute) SVT (supraventricular tachycardia) (Acute) 1. Chest pain/SVT/HTN -She has a history of SVT which is managed with her home medications. -EKG is nonischemic and initial troponin is negative -Unfortunately she will not be able to undergo a stress test today as there is no nuclear material and there is nobody to do the echo part of a stress echo therefore will obtain serial cardiac enzymes and if this remains normal will talk with cardiology about getting her a stress test early next week. -We will continue with her metoprolol, losartan, Norvasc, and aspirin -Unfortunately she is allergic to statins 2. Depression/anxiety -Stable -Continue with escitalopram DVT: Lovenox Code Visit OBSV E&M: 12842 Initial observation care L2
--- NOTE | 2018-11-22 09:28 | EKG12_ITS ---
Test Reason : CP ADMISSION Blood Pressure : / mmHG Vent. Rate : 056 BPM Atrial Rate : 056 BPM P-R Int : 184 ms QRS Dur : 072 ms QT Int : 450 ms P-R-T Axes : 063 -28 047 degrees QTc Int : 434 ms Sinus bradycardia Septal infarct (cited on or before 09-NOV-2011) Abnormal ECG When compared with ECG of 11-MAR-2014 11:33, No significant change was found Confirmed by YUMIKO LORENZ, ANNALISE ([id number]), photography editor TIM ELLIS ([id number]) on 11/25/2018 11:20:59 AM Referred By: JOHN Confirmed By:ANNALISE CALDERON MD
[2018-11-22] MEDS: Acetaminophen 325 MG Tablet 650 MG PO (10:55)
[2018-11-22] MEDS: Enoxaparin 40 MG/0.4 ML Syringe SC (10:55)
[2018-11-22] MEDS: Metoprolol Tartrate 25 MG Tablet 75 MG PO (10:56)
[2018-11-22] MEDS: Losartan Potassium 50 MG Tablet PO (10:56)
[2018-11-22] MEDS: Multivitamins,Ther W-Minerals Tablet 1 TABLET PO (12:35)
[2018-11-22] MEDS: Aspirin E.C. 81 MG Tablet PO (12:36)
[2018-11-22] MEDS: Escitalopram Oxalate 10 MG Tablet 30 MG PO (12:36)
--- NOTE | 2018-11-22 14:33 | PCM.DC ---
- Discharge Diagnoses Current Active Problems: Current Active and Chronic Problems (Last Reviewed 06/12/18 @ 15:52 by Chary Hansen) Chest pain (Acute) You will use the following diet at home:: Cardiac Your food should be the consistency of: Regular Your liquids should be the consistency of: Regular/Thin Discharge Activity: Return to Normal Activity, No Restrictions Call your doctor if you observe: Fever of 101 or Higher, Shortness of breath, Dizziness, Fainting spells, Swelling in the ankles, Chest pain, Increased palpitations (irregular heartbeat) Allergies/Adverse Reactions: Allergies bupropion [From Wellbutrin] Allergy (Severe, Verified 11/22/18 05:46) Hives atorvastatin calcium [From Lipitor] Allergy (Verified 11/22/18 05:46) Pain in joints erythromycin base [Erythromycin Base] Allergy (Verified 11/22/18 05:46) Upset Stomach nitroglycerin Allergy (Verified 11/22/18 06:12) Other rosuvastatin calcium [From Crestor] Allergy (Verified 11/22/18 05:46) Pain in joints spironolactone Adverse Reaction (Severe, Verified 11/22/18 05:46) Diarrhea Hsdqdqz-Qem-Wna Reductase Inhibitor Adverse Reaction (Severe, Verified 11/22/18 05:46) myalgias lisinopril Adverse Reaction (Intermediate, Verified 11/22/18 05:46) Other COUGH amlodipine [From Norvasc] Adverse Reaction (Verified 11/22/18 05:46) Unknown meloxicam [From Mobic] Adverse Reaction (Verified 11/22/18 05:46) cough Medications to take at Discharge Cholecalciferol (Vitamin D3) [D3-2000] 1,000 unit PO DAILY 03/11/14 Multivit-Min/FA/Lycopene/Lut [Centrum Silver Tablet] 1 ea PO DAILY 03/11/14 [place]-3 Fatty Acids/Fish Oil [[place] 3 1,000 mg Softgel] 1 ea PO QHS 05/19/18 aspirin 81 mg tablet,delayed release 81 mg PO DAILY 06/11/18 losartan 50 mg tablet 50 mg PO BID tab 06/11/18 lorazepam 0.5 mg tablet 0.5 mg PO TID PRN tab 06/12/18 metoprolol tartrate 50 mg tablet 75 mg PO BID tab 06/12/18 escitalopram 20 mg tablet 30 mg PO DAILY tab 09/25/18 Amlodipine [Norvasc] 2.5 mg PO DAILY 11/22/18 Primary Care Physician: Rodger Thornton DO [Primary Care Provider] - Please follow up with your Primary Care Physician in: 3-5 days Test Results: Test results from this visit will be discussed in further detail at your follow-up appointment, if applicable. Please Follow Up With: Neville Giles MD - Call for appointment this week
--- NOTE | 2018-11-22 14:37 | DCINST_ITS ---
- Discharge Diagnoses Current Active Problems: Current Active and Chronic Problems (Last Reviewed 06/12/18 @ 15:52 by Chary Hansen) Chest pain (Acute) You will use the following diet at home:: Cardiac Your food should be the consistency of: Regular Your liquids should be the consistency of: Regular/Thin Discharge Activity: Return to Normal Activity, No Restrictions Call your doctor if you observe: Fever of 101 or Higher, Shortness of breath, Dizziness, Fainting spells, Swelling in the ankles, Chest pain, Increased palpitations (irregular heartbeat) Allergies/Adverse Reactions: Allergies bupropion [From Wellbutrin] Allergy (Severe, Verified 11/22/18 05:46) Hives atorvastatin calcium [From Lipitor] Allergy (Verified 11/22/18 05:46) Pain in joints erythromycin base [Erythromycin Base] Allergy (Verified 11/22/18 05:46) Upset Stomach nitroglycerin Allergy (Verified 11/22/18 06:12) Other rosuvastatin calcium [From Crestor] Allergy (Verified 11/22/18 05:46) Pain in joints spironolactone Adverse Reaction (Severe, Verified 11/22/18 05:46) Diarrhea Pgintsh-Bia-Rdg Reductase Inhibitor Adverse Reaction (Severe, Verified 11/22/18 05:46) myalgias lisinopril Adverse Reaction (Intermediate, Verified 11/22/18 05:46) Other COUGH amlodipine [From Norvasc] Adverse Reaction (Verified 11/22/18 05:46) Unknown meloxicam [From Mobic] Adverse Reaction (Verified 11/22/18 05:46) cough Medications to take at Discharge Cholecalciferol (Vitamin D3) [D3-2000] 1,000 unit PO DAILY 03/11/14 Multivit-Min/FA/Lycopene/Lut [Centrum Silver Tablet] 1 ea PO DAILY 03/11/14 [place]-3 Fatty Acids/Fish Oil [[place] 3 1,000 mg Softgel] 1 ea PO QHS 05/19/18 aspirin 81 mg tablet,delayed release 81 mg PO DAILY 06/11/18 losartan 50 mg tablet 50 mg PO BID tab 06/11/18 lorazepam 0.5 mg tablet 0.5 mg PO TID PRN tab 06/12/18 metoprolol tartrate 50 mg tablet 75 mg PO BID tab 06/12/18 escitalopram 20 mg tablet 30 mg PO DAILY tab 09/25/18 Amlodipine [Norvasc] 2.5 mg PO DAILY 11/22/18 Primary Care Physician: Rodger Thornton DO [Primary Care Provider] - Please follow up with your Primary Care Physician in: 3-5 days Test Results: Test results from this visit will be discussed in further detail at your follow- up appointment, if applicable. Please Follow Up With: Neville Giles MD - Call for appointment this week
--- NOTE | 2018-11-22 14:46 | DS.PCM_ITS ---
Discharge Date and Diagnosis - Problem List Patient Problems: Active and Suspected Problems (Last Reviewed 06/12/18 @ 15:52 by Chary Hansen) Chest pain (Acute) Date of Admission: 11/22/18 Date of Discharge: 11/22/18 - Primary Discharge Diagnosis Active and Suspected Problems (Last Reviewed 06/12/18 @ 15:52 by Chary Hansen) Chest pain (Acute) - Secondary Discharge Diagnosis Chronic Problems (Last Reviewed 06/12/18 @ 15:52 by Chary Hansen) Essential hypertension (Chronic) Dyslipidemia (Chronic) BPPV (benign paroxysmal positional vertigo) (Chronic) Hospital Course and Treatment Imaging Results: 11/22/18 05:50 Chest 1 View (Portable) [RAD] Stat Consults: None Operations: None Procedures: None Summary of Care Provided: Per HPI: The patient is a 77 year old F with PMH as below who has had a several hour history of chest pain. She woke up from sleep with chest pain that radiated to her shoulder. She denies any shortness of breath lightheadedness or dizziness with this episode however she did become diaphoretic. She has never had chest pain like this before either at rest or with activity. And nothing made his pain go away. She presented to the ER and was found to have normal sinus rhythm on EKG which was nonischemic as well as a normal initial troponin. She states she has had a stress test in the past which was normal, and she had an echo in June 2018 with stage I diastolic dysfunction as well as an EF of 65% and a right ventricular systolic pressure of 35 mmHg. She is given a dose of nitro in the ER which did not resolve her pain and actually causes her pressures to drop. Hospital Course: 1. Chest pain/history of SVT/IIK-62-ziof-old female presents with chest pain that woke her out of sleep this morning that radiated to her shoulder. She was unable to obtain a stress test today and would have had to stay until Saturday which she did not want to do especially in light of the fact that she had 3 troponins that remained negative. She does have a history of anxiety and it is possible that anxiety could be causing her chest pain at the moment. I did discuss the case with her multiple spindle screw machine operator who would be more than happy to see her in the office next week. She can resume all of her home medications until her outpatient follow-up with cardiology. I do swing to her that if the chest pain returns especially with activity that she is to come back to the ER. Her other medical diagnoses were evaluated in her home medications were continued where appropriate. This was discussed with herself and her who both expressed understanding and agreed to the plan. Patient Problems: Active and Suspected Problems (Last Reviewed 06/12/18 @ 15:52 by Chary Hansen) Chest pain (Acute) - Physical Exam Vital Signs Temp Pulse Resp BP Pulse Ox 98 F 61 16 150/72 H 93 11/22/18 12:43 11/22/18 13:19 11/22/18 12:43 11/22/18 12:43 11/22/18 12:43 Oxygen Flow Rate (L/min) 2 Oxygen Delivery Method Room Air Weight: 158 lb 1.143 oz Body Mass Index (BMI) 29.0 Intake and Output for Last 24 Hours 11/20/18 11/21/18 11/22/18 23:59 23:59 23:59 Intake Total 240 / 240 Balance 240 / 240 Laboratory Tests Past 24 Hrs 11/22/18 11/22/18 11/22/18 05:45 05:45 05:45 WBC 6.8 RBC 5.04 Hgb 15.0 Hct 45.6 MCV 90.5 MCH 29.8 MCHC 32.9 RDW 14.8 H RDW Differential 48.8 H Plt Count 203 MPV 11.0 Immature Gran % (Auto) 0.300 Neut % (Auto) 50.0 Lymph % (Auto) 38.9 [place] % (Auto) 5.4 Eos % (Auto) 4.8 Baso % (Auto) 0.6 Absolute Neuts (auto) 3.4 Absolute Lymphs (auto) 2.65 Total Counted Not Reportable D-Dimer Quant (PE/DVT) < 0.27 L Sodium 141 Potassium 4.5 Chloride 108 H Carbon Dioxide 27.0 Anion Gap 6 BUN 16 Creatinine 0.86 Estim Creat Clear Calc 44.02 Est GFR (MDRD) Af Amer 82 Est GFR (MDRD) Non-Af 68 BUN/Creatinine Ratio 18.6 Glucose 115 H Calcium 9.5 Troponin I < 0.015 11/22/18 11/22/18 10:50 13:21 WBC RBC Hgb Hct MCV MCH MCHC RDW RDW Differential Plt Count MPV Immature Gran % (Auto) Neut % (Auto) Lymph % (Auto) [place] % (Auto) Eos % (Auto) Baso % (Auto) Absolute Neuts (auto) Absolute Lymphs (auto) Total Counted D-Dimer Quant (PE/DVT) Sodium Potassium Chloride Carbon Dioxide Anion Gap BUN Creatinine Estim Creat Clear Calc Est GFR (MDRD) Af Amer Est GFR (MDRD) Non-Af BUN/Creatinine Ratio Glucose Calcium Troponin I < 0.015 < 0.015 Discharge Activity: Return to Normal Activity, No Restrictions Call your doctor if you observe: Fever of 101 or Higher, Shortness of breath, Dizziness, Fainting spells, Swelling in the ankles, Chest pain, Increased palpitations (irregular heartbeat) Home Medications: Medications to take at Discharge Cholecalciferol (Vitamin D3) [D3-2000] 1,000 unit PO DAILY 03/11/14 Multivit-Min/FA/Lycopene/Lut [Centrum Silver Tablet] 1 ea PO DAILY 03/11/14 [place]-3 Fatty Acids/Fish Oil [[place] 3 1,000 mg Softgel] 1 ea PO QHS 05/19/18 aspirin 81 mg tablet,delayed release 81 mg PO DAILY 06/11/18 losartan 50 mg tablet 50 mg PO BID tab 06/11/18 lorazepam 0.5 mg tablet 0.5 mg PO TID PRN tab 06/12/18 metoprolol tartrate 50 mg tablet 75 mg PO BID tab 06/12/18 escitalopram 20 mg tablet 30 mg PO DAILY tab 09/25/18 Amlodipine [Norvasc] 2.5 mg PO DAILY 11/22/18 Primary Care Physician: Rodger Thornton DO [Primary Care Provider] - Please follow up with your Primary Care Physician in: 3-5 days Please Follow Up With: Neville Giles MD - Call for appointment this week Disposition: Home Minutes spent on discharge:: 35 Patient Condition:: Stable Medical Necessity - Tobacco Use Smoking Status: Former smoker Tobacco Use: Cigarettes Meaningful Use Info Meaningful Use Diagnoses (Choose all that apply): None applicable Code Visit OBSV E&M: 55439 Observ/hosp same date L2
== END 2018-11-22 14:36 | disposition home or self-care (01) ==
LOC: ED 06:31 → PCU 07:29
PROVIDERS: Admitting Provider Family Medicine; Emergency Provider Emergency Medicine; Family Provider Student in an Organized Health Care Education/Training Program; PCP Student in an Organized Health Care Education/Training Program; Visit Provider Family Medicine
DX: R07.89 Other chest pain (principal); I10 Essential (primary) hypertension; Z79.899 Other long term (current) drug therapy; E78.5 Hyperlipidemia, unspecified; R94.31 Abnormal electrocardiogram [ECG] [EKG]; I47.1 Supraventricular tachycardia; K21.9 Gastro-esophageal reflux disease without esophagitis; K58.9 Irritable bowel syndrome, unspecified; Z87.891 Personal history of nicotine dependence; F41.9 Anxiety disorder, unspecified; F32.9 Major depressive disorder, single episode, unspecified
CPT/HCPCS: 71045; 80048; 84484; 85025; 85379; 93005; 96372; 99218; 99283; J7030; A4216; G0378

== ENCOUNTER → 2018-12-23 | Outpatient (CLI) | payer MEDICARE, OTHER, SELFPAY ==
[2018-11-22 08:36] VITALS: BMI 29.0
[2018-12-12 08:41] VITALS: BMI 29.5
--- NOTE | 2018-12-23 11:53 | STRESSREP_ITS ---
Stress Test Report Date: 12-23-18 Procedure: Exercise tolerance test/imaging study Indications: Chest pain; SVT; syncope Consent: Per the patient Procedure: The patient exercised on a Allan protocol for 6 minutes and 15 seconds completing stage II and 15 seconds of stage III achieving a peak heart rate of 131 bpm (91 % predicted maximal heart rate) with a peak blood pressure 180/72 mmHg and a peak MET capacity of 7 METs. The baseline ECG demonstrated sinus bradycardia; poor R wave progression. The peak exercise ECG demonstrated somatic/motion artifact with no obvious ECG changes. There was a rare PVC during recovery. The functional capacity was considered average. There was no complaint of chest discomfort during exercise or recovery. The examination was discontinued secondary to dyspnea. Impression: 1. Technically adequate (percent predicted maximal heart rate greater than 85%) exercise tolerance test 2. Peak exercise ECG with somatic/motion artifact with no obvious ECG changes 3. There was a rare PVC during recovery 4. Nuclear images pending Myocardial perfusion imaging study: Technique: The patient was injected with 11.3 mCi of technetium 99m Cardiolite and subsequently rest SPECT Cardiolite nuclear imaging was obtained in the horizontal long, vertical long, and short axis views. The patient exercised on a Allan protocol for 6 minutes and 15 seconds completing stage II and 15 seconds of stage III achieving a peak heart rate of 131 bpm (91 % predicted maximal heart rate) with a peak blood pressure 180/72 mmHg and a peak MET capacity of 7 METs. The patient was injected with 33.2 mCi of technetium 99m Cardiolite and subsequently stress SPECT Cardiolite nuclear imaging was obtained in the horizontal long, vertical long, and short axis views. A gated Cardiolite study at peak stress was obtained. Interpretation: Rest and stress SPECT Cardiolite nuclear imaging status post realignment, normalization, and attenuation correction, demonstrates the appearance of relative uniform tracer uptake and myocardial perfusion appearing within normal limits. There is end systolic thickening and brightening. The gated Cardiolite study demonstrates myocardial thickening and inward wall motion. The reported LVEF is 74 %. Impression: 1. Rest and stress SPECT Cardiolite nuclear imaging demonstrate relative unifo rm tracer uptake and myocardial perfusion appearing within normal limits. 2. The gated Cardiolite study reports an LVEF of 74 %. This note was generated with [email or web address] software. It may contain incorrect words, spelling, and punctuation that were not noted in checking the note before signing.
== END | disposition home or self-care (01) ==
LOC: NM 06:14
PROVIDERS: Family Provider Student in an Organized Health Care Education/Training Program; PCP Student in an Organized Health Care Education/Training Program; Referring Provider Internal Medicine Cardiovascular Disease; Visit Provider Internal Medicine Cardiovascular Disease
DX: I47.1 Supraventricular tachycardia (principal); R07.9 Chest pain, unspecified
CPT/HCPCS: 78452; 93017; A9500; A4216

== ENCOUNTER 2020-07-27 09:00 | Outpatient (RCR) | payer MEDICARE, OTHER, SELFPAY | END 2020-07-27 23:59 | LOC: IMMUN 09:00 | PROVIDERS: PCP Student in an Organized Health Care Education/Training Program; Visit Provider Family Medicine | DX: Z23 Encounter for immunization (principal) | CPT/HCPCS: 0011A; 0012A; 91301 ==

== ENCOUNTER → 2020-12-08 | Outpatient (CLI) | payer MEDICARE, OTHER, SELFPAY | END | disposition home or self-care (01) | LOC: LABSPEC 15:12 | PROVIDERS: PCP Student in an Organized Health Care Education/Training Program; Visit Provider Otolaryngology Otolaryngology/Facial Plastic Surgery | DX: J32.9 Chronic sinusitis, unspecified (principal) | CPT/HCPCS: 87070; 87205 ==

== ENCOUNTER 2022-04-26 11:00 | Outpatient (RCR) | payer MEDICARE, OTHER, SELFPAY ==
--- NOTE | 2022-02-21 14:03 | HP.PTEVAL_ITS ---
Patient's Visit Information LEONIDES GILLESPIE is a 81 year old F referred to Physical Therapy by Dr. Cyril Guajardo DO with a diagnosis of SPINAL STENOSIS LUMBAR,SPONDYLOLISTHESIS LUMBAR,SPONDYLOSIS NO RADICULOPTHY. Date of Evaluation: 02/21/22 Physical Therapist: Lencho Aksew, PT, Cert MDT, OCS - Visit Plan Frequency: 2x /Week Duration: 4 Weeks Plan: PT INTERVETIONS AQUATIC THERAPY LUMBAR FLEXION,DLS ,POSTURAL EX'S AND FUNCTIONAL STRENGTH AND FLEXABLITY - Subjective This 81 y/o female presents to physical therapy lumbar pain . Patient has lumbar pain for ~ 7years but symptoms have progressively worse past . Symptoms gradually worse in back . Patient has seen DR Heath for TKR . But was referred to DR Bennett caputo x-rays and MRI showed stenosis and spondylolisthesis . Location of pain symmetrical lumbar and radiates to lateral hips. Patient states occasionally legs give way from being numb. Although ,patient has never fallen. Aggravating factors walking/standing, bending ,lifting. Alleviating factors rest and Advil. No abnormal night pain . Coughing/sneezing -. Bowel/bladder -. No abnormal night pain. Patient had no trauma. Patient has no prior PT for back .Patient symptoms affects QOL and function. DR want to try PT if doesn't help may try injections. SOCIAL: . VOCATION: single - Pain Bilateral Back Pain Intensity (Out of 10): 2 Pain Intensity Range: 10 - Objective POSTURE: mild forward posture. GAIT: reciprocal pattern mild forward posture. SYMMERIES: align. LUMBAR ROM: flexion flexion min ,extension min/mod loss pain, side glides min loss. FLEXABLITY: hamstrings WFL. MMT: quads/hams 4/5 ,hip flexion 4-/5 ,ankle 4/5 - Special Tests L/S Slump test left side: Negative L/S Slump test right side: Negative L/S Left Straight Leg Raise: Negative L/S Right Straight Leg Raise: Negative Lumbar Standing: Flexion - Mechanical Response: No effect Lumbar Standing: Flexion - Symptoms During Testing: No effect Lumbar Standing: Flexion - Symptoms After Testing: No effect Lumbar Standing: Extension - Mechanical Response: No effect Lumbar Standing: Extension - Symptoms During Testing: Increases Lumbar Standing: Extension - Symptoms After Testing: No worse Lumbar Standing: Right Side Glides - Mechanical Response: No effect Lumbar Standing: Right Side [place] - Symptoms During Testing: No effect Lumbar Standing: Right Side [place] - Symptoms After Testing: No effect Lumbar Standing: Left Side [place] - Mechanical Response: No effect Lumbar Standing: Left Side [place] - Symptoms During Testing: No effect Lumbar Standing: Left Side [place] - Symptoms After Testing: No effect Lumbar Lying: Flexion - Mechanical Response: No effect Lumbar Lying: Flexion - Symptoms During Testing: Increases Lumbar Lying: Flexion - Symptoms After Testing: No worse Comments:: seated back flexion better - Balance/Special Test Scores Oswestry Low Back Score: 27 - Goals Goal 1:: Patient to be I with Aquatic therapy program Goal Time Frame: 4-6 Weeks Goal 2:: Patient to demonstrate 50% improvement with decrease lumbar pain and improved function. Goal Time Frame: 4-6 Weeks Goal 3:: Patient to improve lumbar ROM for function of recovery to tie shoes Goal Time Frame: 4-6 Weeks Goal 4:: Patient to improve back oswesrty score by 5 points to improve QOL. Goal Time Frame: 4-6 Weeks Goal 5:: Patient is able to walk to go shopping and DR visits with min limitations Goal Time Frame: 4-6 Weeks - Rehabilitation Potential Physical Therapy Diagnosis: This female presents to physical therapy with with lumbar pain with radicular symptoms in hips worse with positioning , motion testing ,worse with walking and standing affects ADLS and housework tasks Rehabilitation Potential: Good - Anticipated Interventions Patient/Client Instruction: Educate patient on: Condition, Plan of Care For the Purpose of:: To decrease pain, To increase ROM, To improve muscle performance and motor function, To improve ability of physical actions for home/community/work/leisure, To improve gait and locomotor functions, To increase flexibility/ROM, To improve endurance, To improve balance, To improve tolerance to ADL's Therapeutic Exercise to Include: Strength training, Endurance training, Body mechanics, Postural training, Flexibilty training, In an aquatic setting, Dynamic Lumbar Stabilization For the Purpose of:: To decrease pain, To increase ROM, To improve muscle performance and motor function, To improve ability to perform ADL's, To increase tolerance to activity/condition/position, To improve ability of physical actions for home/community/work/leisure, To improve health of tissue, To decrease soft tissue restriction, To increase flexibility/ROM, To improve endurance Thank you for the opportunity to evaluate your patient. For Medicare and Medicare HMO plans, please review the plan of care and approve it. It will need to be FAXED BACK to us at [phone] for Medicare purposes. For Medicare only, by signing this I certify the plan of care. Please let me know if there are questions or concerns regarding this plan of care. Physician Signature: Date:
--- NOTE | 2022-03-27 10:32 | HP.PTREVAL ---
Dr. Cyril Guajardo, DO, It has been my pleasure to treat LEONIDES GILLESPIE over the last 10 visits for SPINAL STENOSIS LUMBAR,SPONDYLOLISTHESIS LUMBAR,SPONDYLOSIS NO RADICULOPTHY. Please see the progress note below for an update on the physical therapy plan of care! Subjective: Symptoms better when I move around and water ex's help symptoms. Symptoms are affected when Bend over affects pain. Objective/Function: POSTURE: mild forward posture. GAIT: reciprocal pattern. NEURO: denies paresthesia/tingling. MMT: QUADS/HAMS/HIP 4/5. LUMBAR ROM: flexion min loss, extension min ,side glides min loss Plan Plan: cont with POC 2x/wk for 4weeks. PT INTERVENTIONS: AQUATIC THERAPY, LUMBAR FLEXION, DLS, POSTURAL EX'S, FLEXIBILITY AND FUNCTIONAL STRENGTH. Balance/Gait/Functional tests - Balance/Special Test Scores Oswestry Low Back Score: 21 Goals Goal 1:: Patient to be I with Aquatic therapy program Goal Time Frame: 4-6 Weeks Goal Progress: Progressing Goal 2:: Patient to demonstrate 60% improvement with decrease lumbar pain and improved function.( New Goal) Goal Time Frame: 4-6 Weeks Goal Progress: Progressing Goal 3:: Patient to improve lumbar ROM for function of recovery to tie shoes Goal Time Frame: 4-6 Weeks Goal Progress: Progressing Goal 4:: Patient to improve back oswesrty score by 5 points to improve QOL. Goal Time Frame: 4-6 Weeks Goal Progress: Progressing Goal 5:: Patient is able to walk to go shopping and DR visits with min limitations Goal Time Frame: 4-6 Weeks Goal Progress: Progressing Anticipated Interventions Patient/Client Instruction: Educate patient on: Condition, Plan of Care For the Purpose of:: To decrease pain, To increase ROM, To improve muscle performance and motor function, To improve ability of physical actions for home/community/work/leisure, To improve gait and locomotor functions, To increase flexibility/ROM, To improve endurance, To improve balance, To improve tolerance to ADL's Therapeutic Exercise to Include: Strength training, Endurance training, Body mechanics, Postural training, Flexibilty training, In an aquatic setting, Dynamic Lumbar Stabilization For the Purpose of:: To decrease pain, To increase ROM, To improve muscle performance and motor function, To improve ability to perform ADL's, To increase tolerance to activity/condition/position, To improve ability of physical actions for home/community/work/leisure, To improve health of tissue, To decrease soft tissue restriction, To increase flexibility/ROM, To improve endurance Please do not hesitate to contact me at [phone] by phone or if you have questions or concerns regarding this new plan of care! Sincerely, Lencho Askew, PT, Cert MDT, OCS
--- NOTE | 2022-04-26 11:41 | HP.PTDCSUM ---
It has been my pleasure to treat LEONIDES GILLESPIE referred by Dr. Cyirl Guajardo DO, with the diagnosis of SPINAL STENOSIS LUMBAR,SPONDYLOLISTHESIS LUMBAR,SPONDYLOSIS NO RADICULOPTHY for a total of 18 visit(s). Discharge Date: 04/26/22 Please see the following information for a summary of their discharge status. Subjective: Doing well ..ready for d/c to water ex's Bilateral Back Pain Intensity (Out of 10): 1 % Improvement: 50 Objective/Function: POSTURE: mild forward. GAIT: reciprocal pattern mild forward. MMT: 4/5 quads/hams/hip flexion 4/5,ankle 5/5. LUMBAR ROM: flexion min loss ,extension mod loss Goal 1:: Patient to be I with Aquatic therapy program Goal Progress: Goal Met Goal 2:: Patient to demonstrate 60% improvement with decrease lumbar pain and improved function.( New Goal) Goal Progress: Goal Met Goal 3:: Patient to improve lumbar ROM for function of recovery to tie shoes Goal Progress: Goal Met Goal 4:: Patient to improve back oswesrty score by 5 points to improve QOL. Goal Progress: Goal Met Goal 5:: Patient is able to walk to go shopping and DR visits with min limitations Goal Progress: Goal Met Plan: D/C TO WATER EX'S Discharge Comments: hep If there are questions or concerns regarding this patient's physical therapy, please feel free to call me at [phone]. Thank you for the referral of this patient. Sincerely, Lencho Askew, PT, Cert MDT, OCS Balance/Gait/Functional tests - Balance/Special Test Scores Oswestry Low Back Score: 10
== END 2022-04-26 19:00 | disposition home or self-care (01) ==
LOC: PT 11:00
PROVIDERS: PCP Student in an Organized Health Care Education/Training Program; Referring Provider Orthopaedic Surgery; Visit Provider Orthopaedic Surgery
DX: M48.061 Spinal stenosis, lumbar region without neurogenic claudication (principal); M43.16 Spondylolisthesis, lumbar region; M47.816 Spondylosis without myelopathy or radiculopathy, lumbar region
CPT/HCPCS: 97113; 97162; 97530

== ENCOUNTER 2022-12-26 10:55 | Emergency (ER) | payer MEDICARE, OTHER, SELFPAY ==
[2022-12-26 10:56] VITALS: BP 139/54; PULSE 71; RESP 16; TEMP 36.4; O2SAT 95; BMI 30.9
--- NOTE | 2022-12-26 11:09 | RAD_ITS ---
EXAM: XR CHEST, 1 VIEW CLINICAL INDICATION: chest pain TECHNIQUE: Frontal view of the chest. COMPARISON: 11/22/2022. FINDINGS: LUNGS AND PLEURAL SPACES: Low lung volumes limit the exam. Probable subsegmental atelectasis in the bases. No consolidations. No pneumothorax. No effusion. HEART: Unremarkable. Cardiac silhouette not enlarged. MEDIASTINUM: Central airways and mediastinal contour are unremarkable. BONES/JOINTS: Unremarkable. SOFT TISSUES: Unremarkable. RAD/Chest 1 View (Portable) IMPRESSION: Low lung volumes limit the exam. Probable subsegmental atelectasis in the bases. No consolidations. Electronically Signed: Jg Moore MD at 11:45 EDT ,
[2022-12-26 11:16] LABS: Absolute Lymphocyte Count 1.17 X10^3/uL (0.83-4.51); Absolute Neutrophil Count 2.4 X10^3/uL (2.0-7.7); Basophil# 0.04 X10^3/uL; Basophil% 0.9 % (0-1); Eosinophils% 4.7 % (0-5); Hematocrit 36.6 % (37-47); Hemoglobin 11.2 g/dL (12.0-15.0); Lymphocyte # 1.17 X10^3/ul (0.83-4.51); Lymphocyte % 27.7 % (19-41); Mean Corp Hgb Conc 30.6 g/dL (32-36); Mean Corpuscular Volume 85.1 fL (81-99); Monocyte# 0.39 X10^3/uL; Monocyte% 9.2 % (0-10); NRBC Flagged by Analyzer 0 % (0-5); Neutrophil % 56.8 % (47-70); Platelet Count 277 K/mm3 (150-450); RBC Distribution Width CV 16.8 % (11.6-14.6); RBC Distribution Width SD 51.7 fl (35.1-43.9); White Blood Count 4.2 K/mm3 (4.4-11.0)
[2022-12-26 11:37] LABS: Anion Gap 7 (5-15); BUN 13 mg/dL (7-18); BUN/Creat Ratio 13.8 RATIO (10-20); Chloride 101 mmol/L (98-107); Creatinine, Serum 0.94 mg/dL (0.55-1.02); EST Glomerular Filtration Rate 61 mL/min (>60); Est Glom Filt Rate - Afr Amer 74 mL/min (>60); Estimated Creatinine Clearance 35.42 ml/min; Glucose 131 mg/dL (74-106); Potassium 4.6 mmol/L (3.5-5.1); Sodium Level 134 mmol/L (136-145); Troponin-I HS 6 pg/mL (3.0-54.0)
--- NOTE | 2022-12-26 11:48 | EX.ED.DYSGE1 ---
HPI History of Present Illness Chief Complaint: Syncope Narrative Narrative: 82-year-old female presenting with syncopal event. Patient was getting an injection in her right knee and a few minutes after that she had just put a brace on and stated that she did not feel well and then had episode of syncope while she was sitting on the bed. No head injury or LOC. She denies any chest pain before or afterwards. She states I am prone to fainting. She states he does do this a lot. Sometimes it happens with injections and procedures. She denies any fevers or chills. Denies shortness of breath. Denies nausea or vomiting. [facility] Medical History BPPV (benign paroxysmal positional vertigo) Dyslipidemia Essential hypertension GERD (gastroesophageal reflux disease) IBS (irritable bowel syndrome) Neurogenic syncope SVT (supraventricular tachycardia) Home Medications aspirin 81 mg tablet,delayed release 81 mg PO DAILY blood thinner 06/11/18 [History Last Taken Unknown] lorazepam 0.5 mg tablet 0.5 mg PO TID PRN Anxiety 06/12/18 [History Last Taken Unknown] magnesium 250 mg tablet 250 mg PO DAILY PRN 07/13/20 [History Last Taken Unknown] losartan 50 mg tablet 50 mg PO BID blood pressure #180 tabs 12/30/20 [Rx Last Taken Unknown] amlodipine 10 mg tablet See Rx Instructions .Route .COMPLEX #90 tabs 07/03/21 [Rx Last Taken Unknown] cyanocobalamin (vitamin B-12) 2,000 mcg tablet 2,000 mcg PO DAILY 01/01/22 [History Last Taken Unknown] duloxetine 30 mg capsule,delayed release 30 mg PO DAILY 01/01/22 [History Last Taken Unknown] polyethylene glycol 3350 17 gram oral powder packet (Miralax) 17 g PO DAILY 01/01/22 [History Last Taken Unknown] carvedilol 12.5 mg tablet See Rx Instructions .Route .COMPLEX #180 tabs 03/28/22 [Rx Last Taken Unknown] Allergy/AdvReac Type Severity Reaction Status Date / Time bupropion [From Wellbutrin] Allergy Severe Hives Verified 01/01/22 10:40 atorvastatin calcium Allergy Pain in Verified 01/01/22 10:40 [From Lipitor] joints erythromycin base Allergy Upset Verified 01/01/22 10:40 [Erythromycin Base] Stomach nitroglycerin Allergy Other Verified 01/01/22 10:40 rosuvastatin calcium Allergy Pain in Verified 01/01/22 10:40 [From Crestor] joints spironolactone AdvReac Severe Diarrhea Verified 01/01/22 10:40 Vibynku-WYB-YvR Reductase AdvReac Severe myalgias Verified 01/01/22 10:40 Inhibitor [Khngiag-Oaz-Bbz Reductase Inhibitor] lisinopril AdvReac Intermediate Other Verified 01/01/22 10:40 amlodipine [From Norvasc] AdvReac Unknown Verified 01/01/22 10:40 meloxicam [From Mobic] AdvReac cough Verified 01/01/22 10:40 Family History Mother Hypertension Heart disease Father Heart disease Alzheimers disease Surgical History History of appendectomy History of arthroscopy of left knee History of cholecystectomy Status post left knee replacement (~05/2018) Social History Smoking Status: Former smoker how long ago did patient quit smokin years ago alcohol intake: current alcohol intake frequency: 0-2 drinks per day Alcohol type: hard liquor substance use type: does not use caffeine: Yes Type: coffee Number of servings: 2 and tea Number of servings: 1 ROS ROS ED Constitutional Constitutional ED: Denies chills, fever(s) or sweats Eyes Eyes: Denies blurry vision or change in vision ENT ENT ED: Denies ear pain or sore throat Cardiovascular Cardiovascular: Denies chest pain, palpitations or racing heartbeat Respiratory/Chest Respiratory/Chest: Denies cough, dyspnea or sputum Gastrointestinal Gastrointestinal: Denies abdominal pain, constipation, diarrhea, nausea or vomiting Genitourinary Genitourinary ED: Denies dysuria, hematuria or urinary frequency Musculoskeletal Musculoskeletal: Denies arthralgias, myalgias or neck pain Integumentary Denies abscess, Abrasions or rash Neurologic Neurologic: Denies headache(s), paresthesias or weakness Psychiatric Psychiatric: Denies anxiety, depression, suicidal ideation or suicidal thoughts Endocrine Endocrinology: Denies polydipsia or polyuria EXAM Physical Exam Const Vital Signs: 12/26/22 10:56 12/26/22 10:59 12/26/22 11:26 Temperature 97.5 F L Temperature Source Oral Pulse Rate 71 Pulse Rate [Lying] Pulse Rate [Standing (for 1 minute prior to obtaining)] Respiratory Rate 16 Respiratory Effort Normal Respiratory Pattern Normal Blood Pressure 139/54 H Blood Pressure [Lying] Blood Pressure [Sitting (for 1 minute prior to obtaining)] Blood Pressure [Standing (for 1 minute prior to obtaining)] Blood Pressure Mean 82 Blood Pressure Mean [Lying] Blood Pressure Mean [Sitting (for 1 minute prior to obtaining)] Blood Pressure Mean [Standing (for 1 minute prior to obtaining)] Pulse Ox 95 Oxygen Delivery Method Room Air Room Air 12/26/22 12:13 12/26/22 12:46 Temperature Temperature Source Pulse Rate 60 Pulse Rate [Lying] 60 Pulse Rate [Standing (for 1 minute prior to obtaining)] 60 Respiratory Rate 20 H Respiratory Effort Respiratory Pattern Blood Pressure 148/72 H Blood Pressure [Lying] 146/60 H Blood Pressure [Sitting (for 1 minute prior to obtaining)] 133/53 H Blood Pressure [Standing (for 1 minute prior to obtaining)] 134/63 H Blood Pressure Mean 97 Blood Pressure Mean [Lying] 88 Blood Pressure Mean [Sitting (for 1 minute prior to obtaining)] 79 Blood Pressure Mean [Standing (for 1 minute prior to obtaining)] 86 Pulse Ox 95 Oxygen Delivery Method Room Air Positive well nourished General Appearance ED: NAD; Negative for pallor HEENT Reports moist mucous membranes Eyes PERRL and EOMs intact bilaterally Chest Wall inspection of chest normal and palpation of chest normal Resp normal respiratory effort and clear to auscultation bilaterally Auscultation: Negative for rales, rhonchi or wheezes Cardio regular rate and regular rhythm Extremity normal to inspection General Extremety ED: Negative for edema or tenderness General Extremity: Negative for edema Neuro oriented x3 and CN's II-XII intact bilaterally Sensorium / Orientation: alert Motor Exam: strength 5/5 throughout Psych mental status grossly normal Skin no rashes or lesions noted and no wounds General Skin Exam: Negative for jaundice or pallor MDM MDM MDM Narrative Medical decision making narrative: 82-year-old female had a syncopal event after injection. She states she is prone to these kind of events. Will obtain orthostatic vital signs. CBC to assess white blood cell count, hemoglobin, platelets, differential. BMP to assess renal function, electrolytes. High-sensitivity troponin and EKG to assess for ischemia or arrhythmia. Chest x-ray to rule out pneumonia, CHF. CBC shows a leukopenia with a white blood cell count of 4.2. Hemoglobin stable 11.2. Platelets normal at 277. Renal function electrolytes within normal limits. High-sensitivity troponin is 6. Patient orthostatic negative. EKG on my interpretation shows a normal sinus rhythm with ventricular rate 61 bpm with PVCs. No evidence of ischemia. Chest x-ray my interpretation shows no acute cardiopulmonary process. The radiologist interprets this and agrees. Patient with history of fainting episodes in similar situations I do not believe she needs to be admitted. She feels good at this point on reevaluation. I will have her follow-up with her primary care physician and cardiology. Impression: 1. Syncope Lab Data Attestation: I reviewed the patient's lab results. Labs: Laboratory Results - last 24 hr 12/26/22 12/26/22 10:36 10:36 WBC 4.2 L RBC 4.30 Hgb 11.2 L Hct 36.6 L MCV 85.1 MCH 26.0 L MCHC 30.6 L RDW Std Deviation 51.7 H RDW Coeff of Bouchra 16.8 H Plt Count 277 MPV 11.0 Immature Gran % (Auto) 0.700 Neut % (Auto) 56.8 Lymph % (Auto) 27.7 [place] % (Auto) 9.2 Eos % (Auto) 4.7 Baso % (Auto) 0.9 Absolute Neuts (auto) 2.4 Absolute Lymphs (auto) 1.17 Nucleated RBC % 0 Sodium 134 L Potassium 4.6 Chloride 101 Carbon Dioxide 26.0 Anion Gap 7 BUN 13 Creatinine 0.94 Estim Creat Clear Calc 35.42 Est GFR (MDRD) Af Amer 74 Est GFR (MDRD) Non-Af 61 BUN/Creatinine Ratio 13.8 Glucose 131 H Calcium 9.0 Troponin I High Sens 6 Radiography Diagnostic Testing: Clinical Impression(s) from Imaging Studies Chest X-Ray 12/26/22 11:09 IMPRESSION: Low lung volumes limit the exam. Probable subsegmental atelectasis in the bases. No consolidations. Electronically Signed: Jg Moore MD at 11:45 EDT , Discharge Plan Triage Chief Complaint: Syncope ED Provider: Curt Moctezuma Dx/Rx/DC Orders Instructions: ED Dizziness or Syncope ... Prescriptions: No Action lorazepam 0.5 mg tablet 0.5 mg PO TID PRN (Reason: Anxiety) aspirin 81 mg tablet,delayed release (DR/EC) 81 mg PO DAILY losartan 50 mg tablet 50 mg PO BID Qty: 180 4RF magnesium 250 mg tablet 250 mg PO DAILY PRN cyanocobalamin (vitamin B-12) 2,000 mcg tablet 2,000 mcg PO DAILY duloxetine 30 mg capsule,delayed release(DR/EC) 30 mg PO DAILY polyethylene glycol 3350 [Miralax] 17 gram powder in packet 17 g PO DAILY amlodipine 10 mg tablet See Rx Instructions .ROUTE .COMPLEX Qty: 90 4RF Dose Instruction: take 1 tablet by mouth once daily FOR BLOOD PRESSURE Rx Instructions: take 1 tablet by mouth once daily FOR BLOOD PRESSURE carvedilol 12.5 mg tablet See Rx Instructions .ROUTE .COMPLEX Qty: 180 3RF Dose Instruction: take 1 tablet by mouth twice a day with food Rx Instructions: take 1 tablet by mouth twice a day with food Primary Care Provider: Rodger Thornton Referrals: Rodger Thornton DO [Primary Care Provider] - Disposition Disposition: Home, Self Care
[2022-12-26 12:13] VITALS: BP 148/72; PULSE 60; RESP 20; O2SAT 95
[2022-12-26 12:46] VITALS: BP 133/53; BP 134/63; BP 146/60; PULSE 60
== END 2022-12-26 13:16 | disposition home or self-care (01) ==
PROVIDERS: Emergency Provider Student in an Organized Health Care Education/Training Program; PCP Student in an Organized Health Care Education/Training Program; Visit Provider Student in an Organized Health Care Education/Training Program
DX: R55 Syncope and collapse (principal); Z87.891 Personal history of nicotine dependence; E78.5 Hyperlipidemia, unspecified; I10 Essential (primary) hypertension; Z79.82 Long term (current) use of aspirin; Z79.899 Other long term (current) drug therapy; Z90.49 Acquired absence of other specified parts of digestive tract; Z96.652 Presence of left artificial knee joint
CPT/HCPCS: 71045; 80048; 84484; 85025; 93005; 99285

== ENCOUNTER 2024-07-03 11:41 | Emergency (ER) | payer MEDICARE, OTHER, SELFPAY ==
[2024-07-03 11:41] VITALS: BP 113/58; PULSE 61; RESP 16; TEMP 36.4; O2SAT 95; BMI 30.4
--- NOTE | 2024-07-03 11:46 | ED.RN ---
EMS STATES THAT SHE WAS HAVING A BM JUST BEFORE THIS EPISODE SHE WAS INOCENTE AT 48 WHEN EMS ARRIVED. PT DENIES SHE WAS HAVING A BM AND STANDING IN THE KITCHEN WHEN SHE WENT OUT AND THEN SHE WOKE UP TO EMS THERE. FAMILY WILL BE ARRIVING SHORTLY
--- NOTE | 2024-07-03 12:06 | RAD_ITS ---
HISTORY: cough. TECHNIQUE: XR Chest 1 View. COMPARISON: 12/26/2022. FINDINGS: CARDIOMEDIASTINAL BORDERS: Cardiac silhouette within normal limits in size. Mediastinal contour unchanged with calcification of the aortic knob. LUNGS: Mild bibasilar opacities. PLEURA: No pleural effusion or pneumothorax seen. OSSEOUS STRUCTURES: Degenerative change. RAD/Chest 1 View (Portable) IMPRESSION: Mild bibasilar atelectasis or pneumonia. Electronically Signed: Ashley Gallo MD at 13:12 EST ,
--- NOTE | 2024-07-03 12:06 | EKG12_ITS ---
Test Reason : Blood Pressure : */* mmHG Vent. 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
--- NOTE | 2024-07-03 12:11 | EDS_ITS ---
HPI History of Present Illness Chief Complaint: Syncope Informant: patient, spouse/S.O., family and EMS Narrative Narrative: 83-year-old female presenting to the emergency room with chief complaint of syncope. Patient is a pretty vague historian. When I asked what brings her to the emergency room a discussion ensues about who will be providing the information. Eventually tells me that she has been transitioning from one antidepressant to another antidepressant and has been feeling not very good. She states that she has had some sinus issues. When asked what this means she states that she has some congestion in her nose and in her chest and has a cough that seems sporadically. This has been present for about a week. Today she made a couple trips to the bathroom trying to have a bowel movement. After 1 trip she went to take some Tylenol for some knee pain that she was experiencing and was not feeling very good so she sat down in a chair and then had a syncopal episode. She states she remembers feeling hot prior to the episode but no chest pain shortness of breath or palpitations. She has a history of syncope. Prior syncopal events were felt to be vagal mediated. Patient states she feels globally weak. She had a normal blood sugar per EMS. She states she had some pain about her toast for breakfast this morning. [facility] Medical History (Updated 07/03/24 @ 14:[address] Vince Ruby, ) SVT (supraventricular tachycardia) Neurogenic syncope IBS (irritable bowel syndrome) GERD (gastroesophageal reflux disease) Essential hypertension Dyslipidemia BPPV (benign paroxysmal positional vertigo) Home Medications ?Medication ?Instructions ?Recorded ?Last Taken ?Type aspirin 81 mg tablet,delayed 81 mg PO DAILY blood thinner 06/11/18 Unknown History release lorazepam 0.5 mg tablet 0.5 mg PO TID PRN Anxiety 06/12/18 Unknown History magnesium 250 mg tablet 250 mg PO DAILY PRN 07/13/20 Unknown History losartan 50 mg tablet 50 mg PO BID blood pressure #180 12/30/20 Unknown Rx tabs cyanocobalamin (vitamin B-12) 2,000 mcg PO DAILY 01/01/22 Unknown History 2,000 mcg tablet polyethylene glycol 3350 17 gram 17 g PO DAILY 01/01/22 Unknown History oral powder packet (Miralax) duloxetine 30 mg capsule,delayed 60 mg PO DAILY 07/09/23 Unknown History release metformin 500 mg tablet 500 mg PO BID 07/09/23 Unknown History cholecalciferol (vitamin D3) 10 10 mcg PO DAILY 10/16/23 Unknown History mcg (400 unit) capsule multivitamin 1 tab PO DAILY 10/16/23 Unknown History carvedilol 12.5 mg tablet See Rx Instructions .Route 10/29/23 Unknown Rx .COMPLEX #180 tabs Allergy/AdvReac Type Severity Reaction Status Date / Time bupropion (From Wellbutrin) Allergy Severe Hives Verified 10/16/23 13:53 atorvastatin calcium (From Allergy Pain in Verified 10/16/23 13:53 Lipitor) joints erythromycin base Allergy Upset Verified 10/16/23 13:53 (Erythromycin Base) Stomach nitroglycerin Allergy Other Verified 10/16/23 13:53 rosuvastatin calcium (From Allergy Pain in Verified 10/16/23 13:53 Crestor) joints spironolactone AdvReac Severe Diarrhea Verified 10/16/23 13:53 [id number] Reductase AdvReac Severe myalgias Verified 10/16/23 13:53 Inhibitor (Vncqlks-Gby-Dzq Reductase Inhibitor) lisinopril AdvReac Intermediate Other Verified 10/16/23 13:53 amlodipine (From Norvasc) AdvReac Unknown Verified 10/16/23 13:53 meloxicam (From Mobic) AdvReac cough Verified 10/16/23 13:53 Family History Mother Hypertension Heart disease Father Heart disease Alzheimers disease Surgical History Status post left knee replacement (~05/2018) History of arthroscopy of left knee History of appendectomy History of cholecystectomy Social History Smoking Status: Former smoker how long ago did patient quit smokin years ago alcohol intake: current alcohol intake frequency: 0-2 drinks per day Alcohol type: hard liquor substance use type: does not use caffeine: Yes Type: coffee Number of servings: 2 and tea Number of servings: 1 ROS ROS ED ROS Narrative Generalized weakness Constitutional Constitutional ED: Denies chills, fever(s) or weight loss Eyes Eyes: Denies change in vision or diplopia ENT ENT ED: Reports other Details: Nasal congestion ; Denies ear pain, rhinorrhea or sore throat Cardiovascular Cardiovascular: Reports other Details: Syncope ; Denies chest pain, orthopnea, palpitations or racing heartbeat Respiratory/Chest Respiratory/Chest: Reports cough; Denies dyspnea or orthopnea Gastrointestinal Gastrointestinal: Reports constipation; Denies abdominal pain, diarrhea, nausea or vomiting Genitourinary Genitourinary ED: Denies dysuria, hematuria or urinary frequency Musculoskeletal Musculoskeletal: Denies arthralgias or myalgias Integumentary Denies abscess or rash Neurologic Neurologic: Denies headache(s) or weakness Psychiatric Psychiatric: Reports anxiety and depression; Denies suicidal ideation or suicidal thoughts Endocrine Endocrinology: Denies polydipsia, polyphagia or polyuria Allergic/Immunologic Allergic/Immunologic ED: Denies mouth swelling, tongue swelling or urticaria EXAM Physical Exam Narrative Exam Narrative: Patient lays in the bed and keeps her eyes closed for almost the entirety of the history and physical Const Vital Signs: 07/03/24 11:41 07/03/24 11:52 07/03/24 13:41 Temperature 97.6 F L Temperature Source Oral Pulse Rate 61 52 L Respiratory Rate 16 14 Respiratory Effort Normal Respiratory Pattern Normal Blood Pressure 113/58 L 162/67 H Blood Pressure Mean 76 98 Pulse Ox 95 95 Oxygen Delivery Method Room Air 07/03/24 14:50 07/03/24 15:03 Temperature 97.7 F L Temperature Source Pulse Rate 53 L 55 L Respiratory Rate 14 16 Respiratory Effort Respiratory Pattern Blood Pressure 178/93 H 180/76 H Blood Pressure Mean 121 110 Pulse Ox 95 98 Oxygen Delivery Method Room Air Positive well nourished, well developed and obese General Appearance ED: well developed and NAD Nutritional Appearance: obese HEENT Reports normocephalic, head/scalp atraumatic and moist mucous membranes Eyes PERRL and EOMs intact bilaterally Neck no lymphadenopathy, supple and no JVD Resp normal respiratory effort and clear to auscultation bilaterally Cardio regular rate, regular rhythm and no murmurs GI normal to inspection, nondistended, normoactive bowel sounds and non-tender Palpation: soft Back/Spine no CVA tenderness and normal ROM Extremity normal to inspection General Extremety ED: Negative for edema General Extremity: Negative for edema Neuro oriented x3 and CN's II-XII intact bilaterally Sensorium / Orientation: alert Motor Exam: strength 5/5 throughout Psych mental status grossly normal Mood & Affect: Negative for depressed or tearful Skin no rashes or lesions noted and no wounds MDM MDM MDM Narrative Medical decision making narrative: Differential diagnosis includes but not limited to cardiac syncope vasovagal syncope electrolyte abnormalities viral syndrome pneumonia bronchitis. My independent interpretation of the chest x-ray is no definitive infiltrate. White count 5.8 hemoglobin 12.6 platelet count of 195 sodium 134 glucose 135. She has had no events on the monitor. Her EKG is a sinus bradycardia. COVID influenza and RSV swabs were negative. Repeat examination the patient is doing well. Her eyes are now open and she is more conversant. The patient most likely had a vasovagal syncope. She has had this multiple times in the past. She most likely has a viral illness. Would recommend monitoring returning if worsening follow-up if not improving History & Record Review Discussion w/independent historian: Patient Lab Data Attestation: I reviewed the patient's lab results. Labs: Laboratory Results - last 24 hr 07/03/24 11:56 WBC 5.8 RBC 4.51 Hgb 12.6 Hct 39.9 MCV 88.5 MCH 27.9 MCHC 31.6 L RDW Std Deviation 45.8 H RDW Coeff of Bouchra 14.3 Plt Count 195 MPV 12.4 H Immature Gran % (Auto) 0.300 Neut % (Auto) 63.5 Lymph % (Auto) 24.9 Dodge % (Auto) 7.2 Eos % (Auto) 3.4 Baso % (Auto) 0.7 Absolute Neuts (auto) 3.7 Absolute Lymphs (auto) 1.45 Nucleated RBC % 0 Sodium 134 L Potassium 4.4 Chloride 105 Carbon Dioxide 26.0 Anion Gap 4 L BUN 16 Creatinine 1.00 Estim Creat Clear Calc 39.63 Est GFR (MDRD) Af Amer 68 Est GFR (MDRD) Non-Af 56 L BUN/Creatinine Ratio 16.0 Glucose 135 H Calcium 9.0 Radiography Diagnostic Testing: Clinical Impression(s) from Imaging Studies Chest X-Ray 07/03/24 12:06 IMPRESSION: Mild bibasilar atelectasis or pneumonia. Electronically Signed: Ashley Gallo MD at 13:12 EST , EKG Initial EKG: Attestation: I personally reviewed and interpreted this EKG as follows: Comments: Sinus bradycardia first-degree AV block ventricular rate of 53 bpm Discharge Plan Triage Chief Complaint: Syncope ED Provider: Vince Ruby Dx/Rx/DC Orders Clinical Impression: Syncope, Viral respiratory illness Instructions: ED Fainting, Vagal Reaction Prescriptions: No Action lorazepam 0.5 mg tablet 0.5 mg PO TID PRN (Reason: Anxiety) aspirin 81 mg tablet,delayed release (DR/EC) 81 mg PO DAILY losartan 50 mg tablet 50 mg PO BID Qty: 180 4RF magnesium 250 mg tablet 250 mg PO DAILY PRN cyanocobalamin (vitamin B-12) 2,000 mcg tablet 2,000 mcg PO DAILY polyethylene glycol 3350 [Miralax] 17 gram powder in packet 17 g PO DAILY duloxetine 30 mg capsule,delayed release(DR/EC) 60 mg PO DAILY metformin 500 mg tablet 500 mg PO BID multivitamin Tablet 1 tab PO DAILY cholecalciferol (vitamin D3) 10 mcg (400 unit) capsule 10 mcg PO DAILY carvedilol 12.5 mg tablet See Rx Instructions .ROUTE .COMPLEX Qty: 180 3RF Dose Instruction: take 1 tablet by mouth twice a day with food Rx Instructions: take 1 tablet by mouth twice a day with food Primary Care Provider: Rodger Thornton Referrals: Rodger Thornton DO [Primary Care Provider] - 3-5 Days if not improving Print Language: Kazakh Disposition Disposition: Home, Self Care Discharge Date/Time: 07/03/24 15:05
[2024-07-03 12:16] LABS: Absolute Lymphocyte Count 1.45 X10^3/uL (0.83-4.51); Absolute Neutrophil Count 3.7 X10^3/uL (2.0-7.7); Basophil# 0.04 X10^3/uL; Basophil% 0.7 % (0-1); Eosinophils% 3.4 % (0-5); Hematocrit 39.9 % (37-47); Hemoglobin 12.6 g/dL (12.0-15.0); Lymphocyte # 1.45 X10^3/ul (0.83-4.51); Lymphocyte % 24.9 % (19-41); Mean Corp Hgb Conc 31.6 g/dL (32-36); Mean Corpuscular Hgb 27.9 pg (27.0-32.0); Mean Corpuscular Volume 88.5 fL (81-99); Mean Platelet Vol. 12.4 fl (6.2-12.0); Monocyte# 0.42 X10^3/uL; Monocyte% 7.2 % (0-10); NRBC Flagged by Analyzer 0 % (0-5); Neutrophil % 63.5 % (47-70); Platelet Count 195 K/mm3 (150-450); RBC Distribution Width CV 14.3 % (11.6-14.6); RBC Distribution Width SD 45.8 fl (35.1-43.9); Red Blood Count 4.51 M/mm3 (4.2-5.4); White Blood Count 5.8 K/mm3 (4.4-11.0)
[2024-07-03 12:28] LABS: Anion Gap 4 (5-15); BUN 16 mg/dL (7-18); Chloride 105 mmol/L (98-107); EST Glomerular Filtration Rate 56 mL/min (>60); Est Glom Filt Rate - Afr Amer 68 mL/min (>60); Estimated Creatinine Clearance 39.63 ml/min; Glucose 135 mg/dL (74-106); Potassium 4.4 mmol/L (3.5-5.1); Sodium Level 134 mmol/L (136-145)
[2024-07-03 13:41] VITALS: BP 162/67; PULSE 52; RESP 14; O2SAT 95
[2024-07-03 14:50] VITALS: BP 178/93; PULSE 53; RESP 14; O2SAT 95
[2024-07-03 15:03] VITALS: BP 180/76; PULSE 55; RESP 16; TEMP 36.5; O2SAT 98
== END 2024-07-03 15:05 | disposition home or self-care (01) ==
PROVIDERS: Emergency Provider Emergency Medicine; PCP Student in an Organized Health Care Education/Training Program; Visit Provider Emergency Medicine
DX: R55 Syncope and collapse (principal); E78.5 Hyperlipidemia, unspecified; J98.8 Other specified respiratory disorders; I10 Essential (primary) hypertension; Z87.891 Personal history of nicotine dependence; Z79.82 Long term (current) use of aspirin; Z79.899 Other long term (current) drug therapy; Z90.49 Acquired absence of other specified parts of digestive tract
CPT/HCPCS: 71045; 80048; 85025; 87631; 93005; 99285